=== PATIENT | female | born 1945 | race Caucasian/White ===

== ENCOUNTER 2016-07-20 16:17 | Emergency (ER) | payer BC, OTHER ==
[~2016-07-20] VITALS: Ht 162.6 cm; Wt 56.5 kg
[~2016-07-20 16:17] MED LIST: CIPR-255 PO; LACO100T PO; LACO200T PO; LEVE1TAB57 PO; LORA0.5T12 PO; VALA500T39 PO
[2016-07-20 16:25] VITALS: TEMP 36.9; Ht 162.6 cm; Wt 56.5 kg
[2016-07-20] MEDS ORDERED: HYDROCODONE/ACETAMOPHEN 5/325MG TAB PO STA (16:35)
[2016-07-20] MEDS ORDERED: TOPI50TA16 PO (16:40)
[2016-07-20] MEDS ORDERED: RIFA300C34 PO (16:40)
[2016-07-20] MEDS ORDERED: ERYCHP PO (16:40)
[2016-07-20] MEDS ORDERED: CLAR500T3 PO (16:40)
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
[2016-07-20] MEDS ORDERED: HYDR-5688 PO (18:04)
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
[2016-07-20 18:19] VITALS: BP 140/66; PULSE 74; O2SAT 99
== END 2016-07-20 18:20 | disposition home or self-care (01) ==
LOC: C.EDB 16:19 → C.EDD 18:20
DX: S20.212A Contusion of left front wall of thorax, initial encounter (principal); M54.6 Pain in thoracic spine; V43.62XA Car passenger injured in collision with other type car in traffic accident, initial encounter; M81.0 Age-related osteoporosis without current pathological fracture; I51.9 Heart disease, unspecified; G40.909 Epilepsy, unspecified, not intractable, without status epilepticus; Z79.899 Other long term (current) drug therapy

== ENCOUNTER 2021-09-20 12:27 | Inpatient (IN) ==
--- NOTE | 2021-09-20 13:01 | Emergency Department Note ---
History of Present Illness General Chief complaint: Fall Stated complaint: FALL, LOWER BACK PAIN Time Seen by Provider: 09/20/21 12:31 History of Present Illness Maximum Pain Intensity: 7 This 76-year-old female presents today by ambulance, for evaluation of multiple falls at home. Patient has a complex medical history. She has a history of meningitis back in the 80s. She is being worked up for Parkinson's disease. 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 She denies having any seizures for quite some time. She does see a neurologist for this. She has developed tremors over the last 6 to 8 months and has developed a shuffling type gait. She states she falls frequently. This morning she fell once while trying to get into the tub. She then had a secondary subsequent fall. She did strike the back of her head on the first fall, and struck her back on the second fall. She now complains of posterior headache as well as left-sided back and rib pain. She denies any loss of consciousness with either of her falls. Denies any neck pain, chest pain or shortness of breath. No numbness or tingling. No nausea or vomiting. No change in vision, speech, or hearing. She denies any loss of strength. Her daughter accompanies her today and contributes significantly to her history. No other treatment. Her biggest current complaint is left-sided rib pain. She has left hip discomfort at baseline. This is not new. No other complaints. Home Medications Medication Instructions Recorded Confirmed Type lacosamide 200 mg tablet (Vimpat) 200 mg PO BID #0 11/29/12 09/20/21 History levetiracetam 500 mg tablet 1,000 mg PO BID #0 tab 11/29/12 09/20/21 History valacyclovir 500 mg tablet 500 mg PO DAILY #0 tab 11/29/12 09/20/21 History topiramate 50 mg tablet 50 mg PO HS #0 tab 07/20/16 09/20/21 History acetaminophen 500 mg tablet 500 mg PO Q6H PRN 09/20/21 09/20/21 History donepezil 5 mg tablet 5 mg PO QAM 09/20/21 09/20/21 History hydroxyzine pamoate 25 mg capsule 25 mg PO BID PRN 09/20/21 09/20/21 History paroxetine HCl 20 mg tablet 20 mg PO DAILY 09/20/21 09/20/21 History Allergies Allergy/AdvReac Type Severity Reaction Status Date / Time iodine Allergy Mild HIVES Verified 09/20/21 13:32 morphine Allergy Unknown Verified 09/20/21 13:32 simvastatin Allergy Unknown Verified 09/20/21 13:32 prednisone AdvReac Mild GI UPSET Verified 09/20/21 13:32 CONTRASTMEDIA Allergy Mild HIVES Uncoded 09/20/21 13:32 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 [employer] Family History Other No pertinent family history Social History Smoking Status: Never smoker Second Hand Exposure: No; Do You Dip or Chew Tobacco: No; Tobacco Cessation Education Requested by Patient: No Hx Alcohol Use: Yes Alcohol type: hard liquor Alcohol Intake Frequency: Monthly or Less Hx Substance Use: No Preferred Language: Turkmen Communication Ability: Effective Hearing Ability: Normal Raw Juice Weigher Required: No Beliefs That Will Affect Care: None marital status: Current Living Situation: Alone current occupational status: retired Other Information That Helps Us Care for You: No Feels Safe at Home: Yes Safety Concerns: Feels Safe At This Time Assistive Devices: Walker Review of Systems A total of 10 systems reviewed and were otherwise negative Physical Exam Vital Signs Vital Signs - 24 hr 09/20/21 12:44 09/20/21 12:45 09/20/21 12:52 Temperature 36.8 C Temperature Source Oral Pulse Rate 75 78 Pulse Rate [Right Finger] Pulse Rate from SpO2 Sensor 75 Pulse Rhythm Regular Pulse Rhythm [Right Finger] Pulse Strength [Right Finger] Respiratory Rate 24 18 Respiratory Effort / Characteristics Non-Labored Respiratory Depth Normal Respiratory Pattern Regular Blood Pressure 173/72 H Blood Pressure Mean 105 Blood Pressure Position Sitting Pulse Oximetry 98 97 Oxygen Delivery Method Room Air Room Air Sepsis Recent Fever Within 48 Hours No Sepsis New/Unexplained Change in Mental Status No Sepsis Action Taken by Nursing No Action Required 09/20/21 13:00 09/20/21 13:08 09/20/21 13:30 Temperature Temperature Source Pulse Rate 71 69 Pulse Rate [Right Finger] Pulse Rate from SpO2 Sensor 72 69 Pulse Rhythm Pulse Rhythm [Right Finger] Pulse Strength [Right Finger] Respiratory Rate 23 19 Respiratory Effort / Characteristics Respiratory Depth Respiratory Pattern Blood Pressure 173/73 H Blood Pressure Mean 106 Blood Pressure Position Pulse Oximetry 98 98 99 Oxygen Delivery Method Room Air Sepsis Recent Fever Within 48 Hours Sepsis New/Unexplained Change in Mental Status Sepsis Action Taken by Nursing 09/20/21 15:00 Temperature Temperature Source Pulse Rate Pulse Rate [Right Finger] 70 Pulse Rate from SpO2 Sensor Pulse Rhythm Pulse Rhythm [Right Finger] Regular Pulse Strength [Right Finger] Normal Respiratory Rate 18 Respiratory Effort / Characteristics Non-Labored Spontaneous Respiratory Depth Normal Respiratory Pattern Blood Pressure Blood Pressure Mean Blood Pressure Position Pulse Oximetry 99 Oxygen Delivery Method Room Air Sepsis Recent Fever Within 48 Hours Sepsis New/Unexplained Change in Mental Status Sepsis Action Taken by Nursing General: Well-developed, well-nourished, elderly female, in no acute distress. Obvious discomfort. Laying on the bed. Alert and oriented. Conversive. Skin: Warm dry with good turgor. No rashes or lesions. No ecchymosis or er ythema. No edema. No bruising on her scalp or back. HEENT: Normocephalic. Eyes PERRLA, EOMI. No conjunctiva or scleral injection. Ears TMs intact bilaterally with good light reflexes. No erythema or bulging. No hemotympanum. Canals are patent. Nares patent bilaterally without turbinate enlargement. No significant drainage. No epistaxis. Heart: Heart RRR. Soft systolic murmur noted. No gallops or rubs. Peripheral pulses are 2+. Lungs: Lungs are clear to auscultation. No crackles rhonchi or wheezing. Good air movement. The patient is able to take a deep breath. Abdomen: Abdomen was inspected, auscultated, and palpated. Bowel sounds present x 4. Soft, mild tenderness to palpation right side. Patient states this is baseline and has been present for a few months. No hepato-splenomegaly. No masses noted. No rebound. Musculoskeletal: Gross motor function of the upper and lower extremities is intact and unremarkable. She is able to perform a straight leg raise. No pain with logrolling of the hips. She has tenderness over the left posterior ribs 6 through 12. No pain with palpation over her cervical spine, thoracic spine, or lumbar spine. Patient has a significant shuffling gait when ambulating. Neurologic: Gross sensation is intact across the upper and lower extremities by soft touch. Peripheral pulses are 2+. She has significant tremoring of the upper extremities. This is both at rest and with intentional movement. Course Administered Medications Acetaminophen (Acetaminophen 500 Mg Tab) 1,000 mg PO TID ROSALINDA Stop: 10/20/21 20:59 Last Admin: 09/21/21 20:15 Dose: 1,000 mg Documented by: [id number] Admin: 09/21/21 14:40 Dose: Not Given Documented by: [id number] Admin: 09/21/21 08:51 Dose: 1,000 mg Documented by: [id number] Admin: 09/20/21 20:16 Dose: 1,000 mg Documented by: [id number] Diclofenac Sodium (Diclofenac Sod 1% Gel 100 Gm Tube) 4 gm EXT QID PRN PRN Reason: Pain Stop: 10/21/21 20:59 Last Admin: 09/21/21 21:57 Dose: 4 gm Documented by: [id number] Donepezil HCl (Donepezil Hcl 5 Mg Tab) 5 mg PO QAM ROSALINDA Stop: 10/21/21 08:59 Last Admin: 09/21/21 08:51 Dose: 5 mg Documented by: [id number] Ketorolac Tromethamine (Ketorolac Tromethamine 15 Mg/Ml Vial) 15 mg IV Q8H PRN PRN Reason: Pain Stop: 09/25/21 17:43 Last Admin: 09/21/21 23:27 Dose: 15 mg Documented by: [id number] Admin: 09/21/21 16:16 Dose: 15 mg Documented by: [id number] Admin: 09/21/21 07:31 Dose: 15 mg Documented by: [id number] Admin: 09/20/21 22:30 Dose: 15 mg Documented by: [id number] Lacosamide (Lacosamide 50 Mg Tablet) 200 mg PO BID ROSALINDA Stop: 10/20/21 20:59 Last Admin: 09/21/21 21:52 Dose: 200 mg Documented by: [id number] Admin: 09/21/21 10:02 Dose: 200 mg Documented by: [id number] Admin: 09/20/21 20:21 Dose: 200 mg Documented by: [id number] Levetiracetam (Levetiracetam 500 Mg Tab) 1,000 mg PO BID ROSALINDA Stop: 10/20/21 20:59 Last Admin: 09/21/21 20:16 Dose: 1,000 mg Documented by: [id number] Admin: 09/21/21 08:51 Dose: 1,000 mg Documented by: [id number] Admin: 09/20/21 20:18 Dose: 1,000 mg Documented by: [id number] Lidocaine (Lidocaine 5% 1 Patch) 1 patch TD QAM ROSALINDA Stop: 10/20/21 18:29 Last Admin: 09/21/21 08:50 Dose: 1 patch Documented by: [id number] Admin: 09/20/21 20:38 Dose: Not Given Documented by: [id number] Miscellaneous (Remove Lidoderm Patch) 1 ea N/A DAILY@2100 ROSALINDA Stop: 10/20/21 06:59 Last Admin: 09/21/21 20:16 Dose: 1 ea Documented by: [id number] Admin: 09/20/21 20:40 Dose: Not Given Documented by: [id number] Admin: 09/20/21 20:20 Dose: Not Given Documented by: [id number] Paroxetine HCl (Paroxetine Hcl 20 Mg Tab) 20 mg PO DAILY ROSALINDA Stop: 10/21/21 08:59 Last Admin: 09/21/21 08:50 Dose: 20 mg Documented by: [id number] Topiramate (Topiramate 50 Mg Tab) 50 mg PO HS [facility] Stop: 10/20/21 20:59 Last Admin: 09/21/21 20:15 Dose: 50 mg Documented by: [id number] Admin: 09/20/21 20:18 Dose: 50 mg Documented by: [id number] Valacyclovir HCl (Valacyclovir Hcl 500 Mg Tablet) 500 mg PO DAILY ROSALINDA Stop: 10/21/21 08:59 Last Admin: 09/21/21 08:50 Dose: 500 mg Documented by: [id number] Discontinued Medications Acetaminophen (Acetaminophen 325 Mg Tab) 650 mg PO NOW STA Stop: 09/20/21 15:21 Last Admin: 09/20/21 15:50 Dose: 650 mg Documented by: [id number] Gadobutrol (Gadobutrol 65ml Vial) 6 ml IV ONCE ONE Stop: 09/21/21 13:44 Last Admin: 09/21/21 13:44 Dose: 6 ml Documented by: [id number] Medical Decision Making Differential Diagnosis Intracranial injury, cervical spine fracture, cranial fracture, rib fracture, spinal injury, consents disease, electrolyte abnormality, contusion, seizure Medical Records Attestation: I reviewed the patient's medical records. Home Medications Current Medication List: was personally reviewed by me Laboratory Data Covid, chemistry panel, troponin, and CBC were obtained. CBC is unremarkable. Chemistry panel is also unremarkable. Troponin is normal. Covid test is negative. Result diagrams: 09/20/21 12:40 09/21/21 06:29 Lab Results 09/20/21 09/20/21 09/20/21 Range/Units 12:40 12:40 15:15 WBC 8.62 (4.8-10.8) K/uL RBC 4.18 L (4.2-5.4) M/uL Hgb 13.9 (12.0-16.0) g/dL Hct 41.3 (37-47) % MCV 98.8 (80-100) fL MCH 33.3 (25-34) pg MCHC 33.7 (32-36) g/dL RDW Std Deviation 46.2 (36.4-46.3) fL RDW Coeff of Angel 12.8 (11.5-14.5) % Plt Count 242 (130-400) K/uL MPV 10.3 (7.4-10.4) fL Immature Gran % (Auto) 0.2 % Neut % (Auto) 83.3 % Lymph % (Auto) 9.5 % Pleasants % (Auto) 6.6 % Eos % (Auto) 0.2 % Baso % (Auto) 0.2 % Neut # (Auto) 7.17 H (1.4-6.5) K/uL Lymph # (Auto) 0.82 L (1.2-3.4) K/uL Pleasants # (Auto) 0.57 (0.11-0.59) K/uL Eos # (Auto) 0.02 (0-0.5) K/uL Baso # (Auto) 0.02 (0-0.2) K/uL Immature Gran # (Auto) 0.02 (0.00-0.02) K/uL Sodium 139 (136-145) mmol/L Potassium 3.5 (3.5-5.1) mmol/L Chloride 108 H (98-107) mmol/L Carbon Dioxide 23 (21-32) mmol/L Anion Gap 8 (3-11) BUN 19 (6-23) mg/dl Creatinine 0.82 (0.6-1.2) mg/dl Est Cr Clr Drug Dosing 52.0 ml/min Est GFR ( Amer) 81.7 ml/min Est GFR (Non-Af Amer) 70.5 ml/min BUN/Creatinine Ratio 23.2 H (10-20) Glucose 116 H (70-99(Fasting)) mg/dl Calcium 9.0 (8.5-10.1) mg/dl Magnesium 1.9 (1.7-2.4) mg/dl Total Bilirubin 0.4 (0.2-1.0) mg/dl AST 16 (13-39) U/L ALT 10 (7-52) U/L Alkaline Phosphatase 104 (34-104) U/L Troponin I < 0.03 (0-0.04) ng/ml Total Protein 7.2 (6.0-8.3) gm/dl Albumin 4.4 (3.4-5.0) gm/dl Globulin 2.8 (2.5-4.0) gm/dl Albumin/Globulin Ratio 1.6 (0.9-2) SARS-CoV-2, RNA, NAAT NEGATIVE (NEGATIVE) Imaging Data My Impression: CT scan imaging of the head and neck was obtained. There is no evidence of fracture subluxation of the cervical spine. No hemorrhage, mass-effect, or fracture of the brain or skull. Rib films showed no acute cardiopulmonary abnormality. She does have acute sixth and seventh rib fractures on the left. No pneumothorax. Lumbar spine films also obtained today showed no evidence of fracture or malalignment. Osteophytes and arthritic changes are noted. All films were reviewed by me and read by radiology. Radiologist's Impression: Cervical Spine CT 09/20/21 13:01 CT SCAN OF THE CERVICAL SPINE CLINICAL HISTORY: Fall. Neck pain. COMPARISON STUDY: No priors. TECHNIQUE: CT scan of the cervical spine is performed from the skull base to the upper thoracic spine. Images are reviewed in the axial, sagittal, and coronal planes. IV contrast was not administered for this examination. A dose lowering technique was utilized adhering to the principles of ALARA. FINDINGS: Skeletal structures: The skeletal structures are osteopenic. There is no evidence of fracture or subluxation involving the cervical spine. Vertebral body height and alignment are maintained. There is straightening of the cervical lordosis with mild reversal centered at C4-C5. Anterior osteophytes are seen throughout. The odontoid process and lateral masses are intact. The atlantoaxial articulation is preserved noting productive degenerative change. The spinous processes appear intact. There is multilevel facet arthropathy. Intervertebral discs: There is moderate disc space narrowing at C5-C6 and C6-C7. Milder disc space narrowing is seen at the remaining cervical levels. Central canal: Posterior disc osteophyte complexes at C4-C5, C5-C6, and C6-C7 may contribute to mild acquired compromise of the central canal. Soft tissues: The prevertebral and paraspinous soft tissues are within normal limits. There is atherosclerotic calcification of the carotid bulbs. Calvarium: The visualized calvarium at the skull base appears intact. Brain parenchyma: Partially visualized brain parenchyma at the skull base is within normal limits. Sinuses and mastoids: The visualized paranasal sinuses are clear. The mastoid air cells are well pneumatized. Lung apices: Clear as visualized. IMPRESSION: 1. There is no evidence of fracture or subluxation involving the cervical spine. 2. Osteopenia and spondylotic change as above. ACT 112: Negative or not required by law. Electronically signed by: Erasmo Healy M.D. 09/20/2021 1:26 PM Lumbar Spine X-Ray 09/20/21 13:01 LUMBAR SPINE 5 VIEWS CLINICAL HISTORY: Fall with low back pain. FINDINGS: 5 views of the lumbar spine are correlated with abdominal CT dated 05/24/2008. The skeletal structures are osteopenic. There is no radiographic evidence of acute fracture or malalignment. Vertebral body height and alignment are maintained throughout the lumbar spine. The transverse and spinous processes appear intact. There is no radiographic evidence of spondylolysis. Anterior and lateral marginal osteophytes are seen throughout. There is mild to moderate disc space narrowing at L5-S1. Only mild disc space narrowing is seen at the remaining lumbar levels. Facet arthropathy is noted in the lower lumbar region. The bony pelvis is intact as visualized. Mild degenerative sclerosis is noted in the sacroiliac joints. There is no bowel obstruction. Atherosclerotic calcification is seen throughout the abdominal aorta. IMPRESSION: 1. There is no radiographic evidence of acute fracture or malalignment involving the lumbar spine. 2. Osteopenia and spondylotic change as above. Dictated: 09/20/2021 3:19 PM Transcribed: 09/20/2021 3:30 PM Lisa [id number] Electronically signed by: Erasmo Healy M.D. 09/20/2021 3:35 PM Ribs w/Chest X-Ray 09/20/21 13:01 AP CHEST WITH LEFT-SIDED RIB SERIES CLINICAL HISTORY: Fall. Left-sided chest wall pain. FINDINGS: An AP upright chest radiograph with 4 additional views from a left- sided rib series is compared to study dated 07/20/2016 and correlated with chest CT dated 05/24/2008. The heart is top normal for projection noting atherosclerot ic calcification of the thoracic aorta. Chronic interstitial thickening and mild elevation of the right hemidiaphragm is similar to previous. There is mild bibasilar scarring/atelectasis. The lungs and pleural spaces are otherwise clear. No pneumothorax is seen. The skeletal structures are osteopenic. There are acute appearing left anterolateral 6th and 7th rib fractures seen on the rib series. The remainder of the bony thorax is grossly intact. Degenerative change and mild scoliosis is noted in the thoracic spine. IMPRESSION: 1. No acute cardiopulmonary abnormality. 2. There are acute appearing left anterolateral 6th and 7th rib fractures seen on the rib series. Correlate for point tenderness. ACT 112: Negative or not required by law. Electronically signed by: Erasmo Healy M.D. 09/20/2021 2:[address] 09/20/21 13:02 CT SCAN OF THE BRAIN WITHOUT IV CONTRAST CLINICAL HISTORY: Fall. Posterior head injury. COMPARISON STUDY: No priors. TECHNIQUE: Unenhanced axial CT scan of the brain is performed from the vertex to the skull base. A dose lowering technique was utilized adhering to the principles of ALARA. CT DOSE: 854.56 mGy.cm FINDINGS: Brain parenchyma: There are age-related involutional changes noting minimal subcortical and periventricular microangiopathic change. There is no hemorrhage, mass effect, or evidence of acute territorial ischemia by CT criteria. Yusuf-w meri matter differentiation is preserved. No extra-axial fluid collection is seen. Ventricles, sulci, cisterns: Prominent secondary to involutional change. Intracranial vasculature: There is atherosclerotic calcification of the cavernous carotid arteries. Calvarium: The skeletal structures are osteopenic. There is no depressed calvarial fracture. Sinuses and mastoids: The visualized paranasal sinuses are clear. The mastoid air cells are well pneumatized. Orbits: The bony orbits are grossly intact. IMPRESSION: There is no hemorrhage, mass effect, or evidence of acute territorial ischemia by CT criteria. ACT 112: Negative or not required by law. Electronically signed by: Erasmo Healy M.D. 09/20/2021 1:22 PM ECG Data Additional Comments: EKG obtained today was reviewed with Dr. De Oliveira. It shows a normal sinus rhythm with a rate of 73. There is a prolonged QT. She has T wave inversions in the anterior leads compared to her EKG of May 2008. ST is now depressed in the anterior leads as well. No acute ST elevation. Blood Pressure Blood Pressure Findings: Elevated blood pressure Blood Pressure Disposition: elevated BP felt to be situational Additional Comments: Likely related to pain from fracture. MDM Narrative Patient was evaluated in room C2. Conservative care measures were discussed. IV was established. Labs were obtained. They are unremarkable. EKG was obtained and was also unremarkable. She was placed on a cafeteria monitor throughout her ED stay. Rate remained regular in the mid 70s to low 70s, and no acute rhythm changes were noted. Radiographic imaging confirmed left-sided rib fractures. No intracranial injury or spinal injury was noted. Nursing staff did ambulate the patient to the bathroom during her stay. She was found to have significant ambulation impairment, and was very unsteady on her feet. She nearly fell several times while going to and from the bathroom. As such, p marquita is not safe for discharge to home. We did discuss therapy to assist with balance, coordination, and strength. Patient states she did have home health previously assigned, but did not trust them and discharged them on her own accord. In discussion with her daughter, and through shared decision making with the patient, admission with placement at a [facility] facility or rehab facility on was agreed upon. Hospitalist service was consulted. Please see their dictation for final management. Patient remained stable while in the ED. she did complain of increasing left-sided rib pain during her stay. She was given Tylenol 650 mg orally. Admission Covid swab was negative. Patient was seen in conjunction with Dr. De Oliveira, who also evaluated the patient and concurred with today's diagnosis and treatment plan. Impression & Plan Frequent falls, Left rib fracture, Unsteady gait Admission to hospitalist service. Discharge Plan Visit Data Chief Complaint: Fall Stated Complaint: FALL, LOWER BACK PAIN ED Provider: Pedro De Oliveira ED Midlevel Provider: Salvador Pedersen Discharge Problem: Frequent falls, Left rib fracture, Unsteady gait Patient Disposition: Admitted As Inpatient Discharge Instructions Interventions: ED Discharge Assessment Last Done: 09/20/21 17:04
[2021-09-20 13:11] LABS: Basophils # (auto) 0.02 K/uL (0-0.2); Basophils % (auto) 0.2 %; Eosinophils # (auto) 0.02 K/uL (0-0.5); Eosinophils % (auto) 0.2 %; Hematocrit (blood only) 41.3 % (37-47); Hemoglobin 13.9 g/dL (12.0-16.0); Immature Granulocytes # (auto) 0.02 K/uL (0.00-0.02); Immature Granulocytes % (auto) 0.2 %; Lymphocytes # (auto) 0.82 K/uL (1.2-3.4); Lymphocytes % (auto) 9.5 %; Mean Corpuscular Hemoglobin 33.3 pg (25-34); Mean Corpuscular Hgb Conc 33.7 g/dL (32-36); Mean Corpuscular Volume 98.8 fL (80-100); Mean Platelet Volume 10.3 fL (7.4-10.4); Monocytes # (auto) 0.57 K/uL (0.11-0.59); Monocytes % (auto) 6.6 %; Neutrophils # (auto) 7.17 K/uL (1.4-6.5); Neutrophils % (auto) 83.3 %; Platelet Count 242 K/uL (130-400); RDW Coefficient of Variation 12.8 % (11.5-14.5); RDW Standard Deviation 46.2 fL (36.4-46.3); Red Blood Count 4.18 M/uL (4.2-5.4); White Blood Count 8.62 K/uL (4.8-10.8)
[2021-09-20 13:21] LABS: Alanine Aminotransferase 10 U/L (7-52); Albumin Globulin Ratio 1.6 (0.9-2); Albumin Level 4.4 gm/dl (3.4-5.0); Alkaline Phosphatase 104 U/L (34-104); Anion Gap 8 (3-11); Aspartate Aminotransferase 16 U/L (13-39); BUN Creatinine Ratio 23.2 (10-20); Bilirubin,Total 0.4 mg/dl (0.2-1.0); Blood Urea Nitrogen 19 mg/dl (6-23); Carbon Dioxide 23 mmol/L (21-32); Chloride 108 mmol/L (98-107); Est GFR (African American) 81.7 ml/min; Est GFR (Non-African American) 70.5 ml/min; Globulin 2.8 gm/dl (2.5-4.0); Glucose 116 mg/dl (70-99(Fasting)); Magnesium 1.9 mg/dl (1.7-2.4); Potassium 3.5 mmol/L (3.5-5.1); Sodium 139 mmol/L (136-145); Total Protein 7.2 gm/dl (6.0-8.3)
[2021-09-20 13:23] LABS: Troponin I < 0.03 ng/ml (0-0.04)
--- NOTE | 2021-09-20 13:25 | CT Scan Report ---
CT SCAN OF THE BRAIN WITHOUT IV CONTRAST CLINICAL HISTORY: Fall. Posterior head injury. COMPARISON STUDY: No priors. TECHNIQUE: Unenhanced axial CT scan of the brain is performed from the vertex to the skull base. A do se lowering technique was utilized adhering to the principles of ALARA. CT DOSE: 854.56 mGy.cm FINDINGS: Brain parenchyma: There are age-related involutional changes noting minimal subcortical and perivent ricular microangiopathic change. There is no hemorrhage, mass effect, or evidence of acute territoria l ischemia by CT criteria. Yusuf-white matter differentiation is preserved. No extra-axial fluid colle ction is seen. Ventricles, sulci, cisterns: Prominent secondary to involutional change. Intracranial vasculature: There is atherosclerotic calcification of the cavernous carotid arteries. Calvarium: The skeletal structures are osteopenic. There is no depressed calvarial fracture. Sinuses and mastoids: The visualized paranasal sinuses are clear. The mastoid air cells are well pneu matized. Orbits: The bony orbits are grossly intact. IMPRESSION: There is no hemorrhage, mass effect, or evidence of acute territorial ischemia by CT mony quinones. ACT 112: Negative or not required by law. Electronically signed by: Erasmo Healy M.D. 09/20/2021 1:22 PM
--- NOTE | 2021-09-20 13:29 | CT Scan Report ---
CT SCAN OF THE CERVICAL SPINE CLINICAL HISTORY: Fall. Neck pain. COMPARISON STUDY: No priors. TECHNIQUE: CT scan of the cervical spine is performed from the skull base to the upper thoracic spine . Images are reviewed in the axial, sagittal, and coronal planes. IV contrast was not administered fo r this examination. A dose lowering technique was utilized adhering to the principles of ALARA. FINDINGS: Skeletal structures: The skeletal structures are osteopenic. There is no evidence of fracture or subl uxation involving the cervical spine. Vertebral body height and alignment are maintained. There is st raightening of the cervical lordosis with mild reversal centered at C4-C5. Anterior osteophytes are s een throughout. The odontoid process and lateral masses are intact. The atlantoaxial articulation is preserved noting productive degenerative change. The spinous processes appear intact. There is multil evel facet arthropathy. Intervertebral discs: There is moderate disc space narrowing at C5-C6 and C6-C7. Milder disc space na rrowing is seen at the remaining cervical levels. Central canal: Posterior disc osteophyte complexes at C4-C5, C5-C6, and C6-C7 may contribute to mild acquired compromise of the central canal. Soft tissues: The prevertebral and paraspinous soft tissues are within normal limits. There is athero sclerotic calcification of the carotid bulbs. Calvarium: The visualized calvarium at the skull base appears intact. Brain parenchyma: Partially visualized brain parenchyma at the skull base is within normal limits. Sinuses and mastoids: The visualized paranasal sinuses are clear. The mastoid air cells are well pneu matized. Lung apices: Clear as visualized. IMPRESSION: 1. There is no evidence of fracture or subluxation involving the cervical spine. 2. Osteopenia and spondylotic change as above. ACT 112: Negative or not required by law. Electronically signed by: Erasmo Healy M.D. 09/20/2021 1:26 PM
--- NOTE | 2021-09-20 14:36 | XRay Report ---
AP CHEST WITH LEFT-SIDED RIB SERIES CLINICAL HISTORY: Fall. Left-sided chest wall pain. FINDINGS: An AP upright chest radiograph with 4 additional views from a left-sided rib series is comp ared to study dated 07/20/2016 and correlated with chest CT dated 05/24/2008. The heart is top normal for projection noting atherosclerotic calcification of the thoracic aorta. Chronic interstitial thick ening and mild elevation of the right hemidiaphragm is similar to previous. There is mild bibasilar s carring/atelectasis. The lungs and pleural spaces are otherwise clear. No pneumothorax is seen. The s keletal structures are osteopenic. There are acute appearing left anterolateral 6th and 7th rib fract ures seen on the rib series. The remainder of the bony thorax is grossly intact. Degenerative change and mild scoliosis is noted in the thoracic spine. IMPRESSION: 1. No acute cardiopulmonary abnormality. 2. There are acute appearing left anterolateral 6th and 7th rib fractures seen on the rib series. Cor relate for point tenderness. ACT 112: Negative or not required by law. Electronically signed by: Erasmo Healy M.D. 09/20/2021 2:34 PM
--- NOTE | 2021-09-20 14:49 | Emergency Department Note ---
ED Visit Note The patient was seen and examined with Salvador Pedersen PA-C. I agree with the history, physical and findings. Please see the note for disposition and details. CT imaging negative for acute process in the head or neck. Imaging of the chest and ribs reveals a left sixth and seventh rib fracture with no pneumothorax. Discussed patient's frequent falls and safety at home. Will discuss with internal medicine for further management. .
[2021-09-20] MEDS ORDERED: ACETAMINOPHEN 325 MG TAB PO STA (15:20)
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
--- NOTE | 2021-09-20 15:37 | XRay Report ---
LUMBAR SPINE 5 VIEWS CLINICAL HISTORY: Fall with low back pain. FINDINGS: 5 views of the lumbar spine are correlated with abdominal CT dated 05/24/2008. The skeletal structures are osteopenic. There is no radiographic evidence of acute fracture or malalignment. Vert ebral body height and alignment are maintained throughout the lumbar spine. The transverse and spinou s processes appear intact. There is no radiographic evidence of spondylolysis. Anterior and lateral m arginal osteophytes are seen throughout. There is mild to moderate disc space narrowing at L5-S1. Onl y mild disc space narrowing is seen at the remaining lumbar levels. Facet arthropathy is noted in the lower lumbar region. The bony pelvis is intact as visualized. Mild degenerative sclerosis is noted i n the sacroiliac joints. There is no bowel obstruction. Atherosclerotic calcification is seen through out the abdominal aorta. IMPRESSION: 1. There is no radiographic evidence of acute fracture or malalignment involving the lumbar spine. 2. Osteopenia and spondylotic change as above. Dictated: 09/20/2021 3:19 PM Transcribed: 09/20/2021 3:30 PM Lisa [id number] MARITO_[email or web address] Electronically signed by: Erasmo Healy M.D. 09/20/2021 3:35 PM
--- NOTE | 2021-09-20 16:08 | Electrocardiogram Report ---
Test Reason : Blood Pressure : / mmHG Vent. Rate : 073 BPM Atrial Rate : 073 BPM P-R Int : 194 ms QRS Dur : 090 ms QT Int : 444 ms P-R-T Axes : 058 038 068 degrees QTc Int : 489 ms Normal sinus rhythm possible old posterior FL Prolonged QT Abnormal ECG When compared with ECG of 27-MAY-2008 06:57, ST now depressed in Anterior leads T wave inversion now evident in Anterior leads Confirmed by Karthik Gong ([id number]) on 09/20/2021 4:08:10 PM Referred By: REFERRED SELF Confirmed By:Jason Gong
[2021-09-20] MEDS ORDERED: ONDANSETRON INJ 2 MG/ML 2 ML VIAL IV PRN (17:44)
[2021-09-20] MEDS ORDERED: ALUMINUM/MAGNESIUM SUSP 30 ML UDC PO PRN (18:30)
[2021-09-20] MEDS ORDERED: POLYETHYLENE (MIRALAX) 17 GM PACK PO PRN (18:32)
[2021-09-20] MEDS: ACETAMINOPHEN 500 MG TAB PO SCH (20:16)
[2021-09-20] MEDS: levETIRAcetam 500 MG TAB PO SCH (20:18)
[2021-09-20] MEDS: TOPIRAMATE 50 MG TAB PO SCH (20:18)
[2021-09-20] MEDS: LIDOCAINE 5% 1 PATCH TD SCH ×2 (20:19→20:38)
[2021-09-20] MEDS: LACOSAMIDE 50 MG TABLET PO SCH (20:21)
[2021-09-20] MEDS: KETOROLAC TROMETHAMINE 15 MG/ML VIAL IV PRN (22:30)
[2021-09-21 07:03] LABS: Calcium 8.9 mg/dl (8.5-10.1); Est GFR (African American) 81.7 ml/min; Est GFR (Non-African American) 70.5 ml/min; Potassium 3.5 mmol/L (3.5-5.1)
[2021-09-21] MEDS: KETOROLAC TROMETHAMINE 15 MG/ML VIAL IV PRN ×3 (07:31→23:27)
[2021-09-21] MEDS: valACYclovir HCL 500 MG TABLET PO SCH (08:50)
[2021-09-21] MEDS: LIDOCAINE 5% 1 PATCH TD SCH (08:50)
[2021-09-21] MEDS: PARoxetine HCL 20 MG TAB PO SCH (08:50)
[2021-09-21] MEDS: ACETAMINOPHEN 500 MG TAB PO SCH ×3 (08:51→20:15)
[2021-09-21] MEDS: DONEPEZIL HCL 5 MG TAB PO SCH (08:51)
[2021-09-21] MEDS: levETIRAcetam 500 MG TAB PO SCH ×2 (08:51→20:16)
--- NOTE | 2021-09-21 09:46 | Neurology Consultation ---
Date of Consultation September 21, 2021 Assessment & Plan (1) Seizure disorder: (2) Frequent falls: (3) Tremor: Reported history of seizure disorder diagnosed about 10 years ago, following with Dr. Mosley, a neurologist in [place]. Per history, patient may experience both generalized tonic-clonic seizures and partial complex seizures. Her seizures may be incompletely controlled as her last episode occurred 4 months ago, she is on 3 anticonvulsants. She recalls having abnormal EEG evalua tions in the past. We do not have access to any of her previous records. She does endorse associated anxiety as well as a history of frequent migrainous headache, following a diagnosis of meningitis about 20 years ago. This patient does have a mixed tremor with resting, postural and action components, right hand greater than left, there is an associated perioral tremor as well. She is not rigid or bradykinetic, however. Yet, she does endorse associated gait dysfunction, shuffling type gait which she thinks began at about the same time as her tremor. Patient may have either a symmetric benign essential tremor or possibly Parkinson's disease, but again, she is not rigid or bradykinetic. I was not able to observe her walking this morning although she reportedly has a shuffling magnetic type gait. Gait abnormalities would typically occur much later on in Parkinson's disease. Early onset gait dysfunction may suggest atypical parkinsonism or an alternative diagnosis such as multiple systems atrophy, progressive supranuclear palsy, or possibly cortical basal degeneration. She does take a low-dose of donepezil for memory loss although in speaking with the patient this morning, I suspect her degree of cognitive impairment is mild. Would recommend completion of gadolinium enhanced MRI of the brain and cervical spine to evaluate for subacute stroke, atrophy, and spinal myelopathy. Would recommend an EEG. Would check anticonvulsant drug levels. I may consider a trial of carbidopa levodopa for her tremor which does have a parkinsonian quality (resting, asymmetric, right greater than left). History of Present Illness Reason for Consultation: falls, seizure d/o, tremor Requesting Physician: Drew Ramirez MD Attending Physician: Eyal Espinoza MD History of Present Illness The patient is a 76-year-old female who follows with Dr. Mosley, a neurologist in [place], for seizure disorder, gait dysfunction, and tremor. She began experiencing seizures about 10 years ago and reports a history of both generalized tonic-clonic seizures as well as partial events. She often experiences a warning which he characterizes tremulousness and an associated feeling of confusion or disorientation. She admits that she is not always aware when she has had spells. She believes her last seizure occurred 4 months ago. She does complain of associated anxiety. She is currently prescribed Vimpat, Keppra, and Topamax. She reports that she developed difficulty with walking, shuffling/magnetic type gait, within the past year or so, she has been utilizing a walker. She also complains of an associated bilateral upper extremity tremor, right greater than left, resting postural and action component although most bothered by action component with difficulty using eating utensils. Also has a mild associated perioral tremor. There is some question as to whether or not she may have Parkinson's disease although she is not bradykinetic or rigid. She is not on Sinemet or other similar medication for Parkinson's disease at this time. She does take a low-dose of donepezil for mild memory loss. The patient presented to the emergency department yesterday for further assessment of multiple falls recently. She does have several relatively acute rib fractures. She did strike her head with 1 of these falls but no associated loss of consciousness or significant concussive symptoms reported at this time. Remote history of meningitis, after which patient developed chronic frequent migraines. Allergies Allergy/AdvReac Type Severity Reaction Status Date / Time iodine Allergy Mild HIVES Verified 09/20/21 13:32 morphine Allergy Unknown Verified 09/20/21 13:32 simvastatin Allergy Unknown Verified 09/20/21 13:32 prednisone AdvReac Mild GI UPSET Verified 09/20/21 13:32 CONTRASTMEDIA Allergy Mild HIVES Uncoded 09/20/21 13:32 Home Medications Medication Instructions Recorded Confirmed Type lacosamide 200 mg tablet (Vimpat) 200 mg PO BID #0 11/29/12 09/20/21 History levetiracetam 500 mg tablet 1,000 mg PO BID #0 tab 11/29/12 09/20/21 History valacyclovir 500 mg tablet 500 mg PO DAILY #0 tab 11/29/12 09/20/21 History topiramate 50 mg tablet 50 mg PO HS #0 tab 07/20/16 09/20/21 History acetaminophen 500 mg tablet 500 mg PO Q6H PRN 09/20/21 09/20/21 History donepezil 5 mg tablet 5 mg PO QAM 09/20/21 09/20/21 History hydroxyzine pamoate 25 mg capsule 25 mg PO BID PRN 09/20/21 09/20/21 History paroxetine HCl 20 mg tablet 20 mg PO DAILY 09/20/21 09/20/21 History Patient History Medical History Aortic valve insufficiency Hx of meningitis Seizure 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 Family History Other No pertinent family history Social History Smoking Status: Never smoker Second Hand Exposure: No; Do You Dip or Chew Tobacco: No; Tobacco Cessation Education Requested by Patient: No Hx Alcohol Use: Yes Alcohol type: hard liquor Alcohol Intake Frequency: Monthly or Less Hx Substance Use: No Preferred Language: Tamazight Communication Ability: Effective Hearing Ability: Normal Fish 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 Required: No Beliefs That Will Affect Care: None marital status: Current Living Situation: Alone current occupational status: retired Other Information That Helps Us Care for You: No Feels Safe at Home: Yes Safety Concerns: Feels Safe At This Time Assistive Devices: Denture - Upper, Denture - Lower, Glasses and Walker Review of Systems Constitutional: no fever and no chills Eyes: no blind spots and no diplopia Ear, Nose, Mouth, Throat: no ear pain and no hearing loss Respiratory: no cough and no dyspnea Cardiovascular: no chest pain and no palpitations Gastrointestinal: no constipation and no diarrhea/loose stools Genitourinary: no urinary urgency and no urinary incontinence Musculoskeletal: + muscle weakness; no muscle atrophy Integumentary: no rash and no lesions Neurologic: as per Subjective / HPI, + gait abnormality, + tremor(s) and + memory loss; no headache(s) Psychiatric: + depression and + anxiety; no hallucinations Hematologic / Lymphatic: no easy bruising and no lymphadenopathy Exam (Neuro) Constitutional: well developed and well nourished; no acute distress Eyes: normal visual villa by confrontation, PERRL, normal accommodation and EOM intact bilaterally; no fundoscopic abnormality, no nystagmus and no papilledema Cardiovascular: Vessels: normal carotid upstroke; no carotid bruit Neurologic: Oriented to:: Person, Place and Time Memory: Short Term Intact and Remote Intact Attention: Span Intact and Concentration Intact Language: Naming Objects and Repeating Phrases Speech Fluency: negative Dysarthria Speech Aphasia: negative Aphasia Fund of Knowledge: Current Events, Past History and Vocabulary Cranial Nerves: Normal II (Visual villa full to confrontation, visual acuity normal), III, IV, (Pupils equal round reactive to light and accommodation, eye movements normal), V (Facial sensation intact), VII (There is no facial droop or weakness), VIII (Hearing intact), IX, X (Palate elevates to midline), XI (Shoulder shrug intact) and XII (Tongue protrudes to midline) Motor Strength: Normal Lower Extremities and Normal Upper Extremities; negative Pronator Drift Motor Tone: Normal Lower Extremities and Normal Upper Extremities Muscle Bulk/Involuntary Movements: Rest Tremor (Arm) and Action Tremor; negative Muscle Atrophy or Pill Rolling Tremor Sensation: Light Touch Intact, Pain/Temperature Intact, Vibration Intact and Proprioception Intact Coordination: Normal and Limited Balance; negative Dysdiadochokinesia, Finger-Nose Abnormal or Heel-Haider Abnormal Deep Tendon Reflexes: Rt Triceps: 2+, Lt Triceps: 2+, Rt Biceps: 2+, Lt Biceps: 2+, Rt Brachioradialis: 2+, Lt Brachioradialis: 2+, Rt Patellar: 2+, Lt Patellar: 2+, Rt Ankle: 1+ and Lt Ankle: 1+ Special Tests: negative Babinski Present Details: Gait could not be tested in the context of patient's current neurological status. Results & Data ([facility]) Vital Signs (Past 12 Hours) Vital Signs Temp Pulse Pulse Resp BP Pulse Ox 09/21/21 07:44 36.7 C 59 L 18 126/75 97 09/21/21 03:27 36.7 C 57 L 17 136/73 96 09/20/21 23:00 37.0 C 62 16 158/84 H 96 09/20/21 22:24 69 Laboratory Results WBC 8.62, hemoglobin 13.9, hematocrit 41.3, MCV 98.8, platelet count 242, sodium 138, potassium 3.5, BUN 23, creatinine 0.82, glucose 88, calcium 8.9. Diagnostic Findings CT of the head negative for hemorrhage or acute process. No hydrocephalus. CT of the cervical spine negative for fracture or subluxation, there is osteopenia and spondylitic change. I reviewed the images as well as the radiologist interpretation of these tests. Electrocardiogram reveals a normal sinus rhythm, prolonged QT interval. Coding Level of Care Code 91396 Initial In Care Lvl 3 Diagnoses Seizure disorder G40.909 Frequent falls R29.6 Tremor R25.1
[2021-09-21] MEDS: LACOSAMIDE 50 MG TABLET PO SCH ×2 (10:02→21:52)
[2021-09-21] MEDS ORDERED: GADOBUTROL 65ML VIAL IV ONE (13:43)
--- NOTE | 2021-09-21 13:47 | Magnetic Resonance Report ---
MR OF THE CERVICAL SPINE WITHOUT IV CONTRAST CLINICAL HISTORY: weakness, falls TECHNIQUE: MRI of the cervical spine is performed utilizing various T1 and T2 sequences in the axial and sagittal planes. IV contrast was not administered for this examination. Comparison: None available at the time of this dictation. FINDINGS: Cervical spine: Vertebral body height and alignment are maintained throughout the cervical spine. The atlantodental articulation appears maintained. No destructive bony lesion is seen. Intervertebral discs: Degenerative changes are noted in the discs and vertebral bodies. Spinal cord: The cervical spinal cord is normal in morphology and signal intensity. C2-C3: Unremarkable. C3-C4: No canal stenosis is seen. There is facet arthropathy with mild left neuroforaminal stenosis. C4-C5: Small broad-based posterior disc bulge with mild canal stenosis. Bilateral facet arthropathy w ith moderate right and mild left neuroforaminal stenosis. C5-C6: Bilateral facet arthropathy with mild bilateral neural foraminal stenosis. C6-C7: Bilateral facet arthropathy is seen with mild bilateral neural foraminal stenosis. C7-T1: Unremarkable. Soft tissues: The paraspinous and prevertebral soft tissues are normal in appearance. Brain parenchyma: Partially imaged brain parenchyma at the skull base is within normal limits. IMPRESSION: Multilevel degenerative changes as above. There is up to mild canal stenosis and moderate right and mild left neuroforaminal stenosis. ACT 112: Negative or not required by law. Electronically signed by: Ascencion Tabares M.D. 09/21/2021 1:45 PM
--- NOTE | 2021-09-21 14:11 | Magnetic Resonance Report ---
MRI OF THE BRAIN COMBO CLINICAL HISTORY: Seizure. Headaches and dizziness. COMPARISON STUDY: CT of the brain dated 09/20/2021. TECHNIQUE: MRI of the brain was performed utilizing various T1 and T2-weighted sequences in the axial , sagittal, and coronal planes. Contrast-enhanced sequences were acquired following the administratio n of 6 cc of Gadavist. The examination was performed using the seizure protocol. FINDINGS: Brain parenchyma: There is age-related involutional change noting minimal microangiopathic disease. T here is no hemorrhage or mass effect. There is no restricted diffusion to suggest acute ischemia. No enhancing mass lesion is identified on the postcontrast images. Yusuf-white matter differentiation is preserved. The hippocampi are normal and symmetric. No extra-axial fluid collection is seen. The cere bellar tonsils are normal in configuration. Ventricles, sulci, and cisterns: Prominent secondary to involutional change. Pituitary and sella: Unremarkable. Intracranial vasculature: Normal flow voids are maintained at the skull base. Orbits: The bony orbits are grossly intact. Orbital contents are normal in appearance. Sinuses and mastoids: Clear. Calvarium: Unremarkable. Cervical cord: Partially visualized cervical spinal cord is normal in morphology and signal intensity . IMPRESSION: No acute intracranial abnormality. ACT 112: Negative or not required by law. Electronically signed by: Erasmo Healy M.D. 09/21/2021 2:09 PM
--- NOTE | 2021-09-21 17:25 | Hospitalist Progress Note ---
Date of Service September 21, 2021 Assessment & Plan (1) Frequent falls: Plan: Patient has been having frequent falls and initially the thought was she was developing a parkinsonian type disorder. Agree with admitting physician and recurrent falls appears to be due to a n eurological condition with significant benign essential tremor type Appreciate neurological review and pending seizure medication levels, brain/cervical spine MRI and EEG for further workup however tremor appears consistent with benign essential tremor - will defer starting any new medications at this time for this pending ongoing neurological workup Certainly medications such as paroxetine are generally avoided in this age group however since she has been on this for > 2 years and no withdrawal during that time I do not suspect this is the cause and do not wish to cause a withdrawal at the current time to complicate the picture. Paroxetine (as with any SSRI) can also make benign essential tremor worse. Telemetry - without arrhythmia although difficult to interpret most of the time with her tremor B12 and TSH levels with AM labs. (2) Benign essential tremor: Plan: Tremor very consistent with this diagnosis. Doubtful Parkinson's - agree with neurology review. Possible Keppra, Paroxetine, Vimpat making this worse - will defer anti-seizure medication changes to neurology Topamax can be used as treatment for essential tremor so this would be favored as anti-convulsant. Will defer additional medications pending neurological workup. (3) Rib fracture: Plan: For the patient's rib fracture will avoid opiates use scheduled Tylenol Lidoderm patch incentive spirometry breathing. (4) Seizure disorder: Plan: For the patient's seizure disorder she takes Vimpat 200 mg twice daily, Keppra 1000 twice daily, and Topamax 50 at bedtime these will be continued with pending neurology evaluation (5) Dementia: Plan: Donepezil continued at 5 mg a day (6) Depression: Plan: Paroxetine is continued to 20 mg a day Plan: VTE Prophylaxis - no SCDs due to falls risk, low risk for chemical prophylaxis Code - full, discussed on admission Disposition - stable to downgrade to med/tele Admission and Anticipated Discharge Date Admission Date: September 20, 2021 Subjective Here mainly for recurrent falls due to loss of balance. No significant change in symptoms since admission. Reports progressively getting worse slowly over the course of the last year, but now to a point she is unable to manage at home. She seems to always fall to one side. No lightheadedness, room spinning or dizziness. Unbalanced with her tremor. Review of Systems Review of Systems: All systems reviewed & are unremarkable except as noted in Subjective Physical Exam Constitutional: WD/WN, vitals as above ENMT: external ear and nose normal, oropharynx normal Neck: trachea midline, no thyromegaly Respiratory: normal respiratory effort, lungs clear to auscultation Cardiovascular: RRR, no murmur, no edema Gastrointestinal (Abdomen): normal bowel sounds, soft, nontender, no hepatosplenomegaly Skin: no rashes, warm and dry Neurologic: moves all extremities and awake; not confused Speech / Cognition: normal speech Motor/Sensory: + tremor (action > postural > resting) Coordination: normal haomnc-wv-aeob test no cogwheel rigidity Psychiatric: A+Ox3, euthymic affect Results & Data Results & Data ([facility]) Vital Signs (Past 12 Hours) Vital Signs Temp Pulse Resp BP Pulse Ox 09/21/21 15:26 37.2 C 64 20 151/79 H 97 09/21/21 11:24 36.5 C 60 17 158/76 H 99 09/21/21 07:44 36.7 C 59 L 18 126/75 97 PG Care Time/CCT Total # of Minutes Spent Total Time Spent with Patient: Total time spent is greater than 50% in coordination of care (as documented) at patient's floor/unit and/or counseling patient: Coding Level of Care Code 47676 Subseq Hosp Care Lvl 3 Diagnoses Frequent falls R29.6 Rib fracture S22.39XA Seizure disorder G40.909 Dementia F03.90 Depression F32.A Benign essential tremor G25.0
[2021-09-21] MEDS ORDERED: DICLOFENAC SOD 1% GEL 100 GM TUBE EXT PRN (20:06)
[2021-09-21] MEDS: TOPIRAMATE 50 MG TAB PO SCH (20:15)
[2021-09-22 08:19] LABS: Basophils # (auto) 0.03 K/uL (0-0.2); Basophils % (auto) 0.4 %; Eosinophils # (auto) 0.12 K/uL (0-0.5); Eosinophils % (auto) 1.8 %; Hematocrit (blood only) 39.7 % (37-47); Hemoglobin 13.8 g/dL (12.0-16.0); Immature Granulocytes # (auto) 0.01 K/uL (0.00-0.02); Immature Granulocytes % (auto) 0.1 %; Lymphocytes # (auto) 1.44 K/uL (1.2-3.4); Lymphocytes % (auto) 21.5 %; Mean Corpuscular Hemoglobin 34.1 pg (25-34); Mean Corpuscular Hgb Conc 34.8 g/dL (32-36); Mean Platelet Volume 10.4 fL (7.4-10.4); Monocytes # (auto) 0.76 K/uL (0.11-0.59); Monocytes % (auto) 11.3 %; Neutrophils # (auto) 4.35 K/uL (1.4-6.5); Neutrophils % (auto) 64.9 %; Platelet Count 245 K/uL (130-400); RDW Coefficient of Variation 12.9 % (11.5-14.5); RDW Standard Deviation 46.7 fL (36.4-46.3); Red Blood Count 4.05 M/uL (4.2-5.4); White Blood Count 6.71 K/uL (4.8-10.8)
[2021-09-22 08:48] LABS: BUN Creatinine Ratio 39.2 (10-20); Calcium 8.6 mg/dl (8.5-10.1); Creatinine Clr Calc Pharmacy 53.9 ml/min; Est GFR (African American) 85.5 ml/min; Est GFR (Non-African American) 73.7 ml/min; Potassium 3.8 mmol/L (3.5-5.1)
[2021-09-22] MEDS: ACETAMINOPHEN 500 MG TAB PO SCH ×3 (09:59→21:20)
[2021-09-22] MEDS: valACYclovir HCL 500 MG TABLET PO SCH (09:59)
[2021-09-22] MEDS: LIDOCAINE 5% 1 PATCH TD SCH (10:00)
[2021-09-22] MEDS: levETIRAcetam 500 MG TAB PO SCH ×2 (10:00→21:20)
[2021-09-22] MEDS: DONEPEZIL HCL 5 MG TAB PO SCH (10:00)
[2021-09-22] MEDS: PARoxetine HCL 20 MG TAB PO SCH (10:00)
--- NOTE | 2021-09-22 10:54 | Neurology Progress Note ---
Date of Service September 22, 2021 Assessment & Plan (1) Tremor: (2) Seizure disorder: (3) Parkinsonian features: Plan: This patient has a mixed asymmetric resting postural and action tremor, right greater than left, associated perioral/chin tremor. She believes her tremor began prior to her gait dysfunction, does display a magnetic shuffling type gait. I note that she is not rigid or bradykinetic, however. No imaging findings on MRI of the brain or cervical spine that would otherwise explain her tremor, gait dysfunction, or history of seizure disorder. Because she is not bradykinetic or rigid, it is difficult to diagnose classic idiopathic Parkinson's disease in this patient in spite of the fact that she has an asymmetric tremor with resting component and magnetic/shuffling type gait. She could be labeled as atypical parkinsonism. No evidence of normal pressure hydrocephalus or significant cerebrovascular disease burden on brain MRI. No evidence of cervical myelopathy on C-spine MRI. Patient's EEG should be completed later today, discussed with our technologist. Patient's seizures have been stable, however. I would recommend that she continue with Vimpat 200 mg twice daily and Keppra 1000 mg twice daily. She is prescribed topiramate 50 mg at bedtime primarily for migraine prevention. However, I think it would be reasonable to try increasing her dosage of topiramate to 50 mg twice daily as this medication may also be beneficial for t remor in general. Would consider a trial of Sinemet going forward, depending on her response to topiramate up titration. Patient may follow-up with Dr. Mosley, her neurologist in [place], or may fol low-up with myself or one of our APCs in our local neurology clinic in 2 to 3 weeks. Admission and Anticipated Discharge Date Admission Date: September 20, 2021 Subjective Follow-up for history of seizure disorder, gait dysfunction, tremor The patient does report feeling modestly improved compared with yesterday. She continues to exhibit a mild to moderate intermittent right upper extremity resting as well as postural and action tremor. Has a mild postural and action tremor for the left upper limb as well. She also has a mild perioral/chin tremor. She is not rigid or bradykinetic. Upon further discussion with the patient today, she does believe that her tremor probably began before her gait and postural difficulty. The symptoms have been present for several years and the possibility of parkinsonism has been considered in this patient. I did have the opportunity to watch her stand up and walk at bedside this morning. She required minimal assistance to arise from her bedside chair. She took very short shuffling type steps. Patient indicates that her walking pattern has been like this for the past few years. She denies significant headache at this time. She has not had any seizure-like episodes and several months. Review of Systems Eyes: no blind spots and no diplopia Neurologic: + tremor(s) and + memory loss; no headache(s) Results & Data ([facility]) Vital Signs (Past 12 Hours) Vital Signs Temp Pulse Resp BP Pulse Ox 09/22/21 07:51 36.4 C L 60 18 147/78 H 96 09/22/21 03:26 36.5 C 64 18 144/76 H 98 09/21/21 23:15 36.9 C 60 18 139/74 95 Laboratory Results WBC 6.71, hemoglobin 13.8, hematocrit 39.7, MCV 98.0, platelet count 245, sodium 140, potassium 3.8, BUN 31, creatinine 0.79, glucose 98, calcium 8.6, vitamin B12 133, TSH 1.532. Keppra and Vimpat levels are pending. MRI of the cervical spine completed yesterday revealed multilevel degenerative changes with up to mild central canal stenosis and moderate right and mild left neuroforaminal stenosis. MRI of the brain completed yesterday was negative for acute or subacute stroke. No abnormal postcontrast enhancement. No hydrocephalus. There is minimal subcortical microvascular ischemic change. No mesial temporal sclerosis. I reviewed the images as well as the radiologist's interpretation of these tests. Exam (Neuro) Neurologic: Oriented to:: Person, Place and Time Attention: Span Intact and Concentration Intact Speech Fluency: negative Dysarthria or Dysfluency Fund of Knowledge: Vocabulary Cranial Nerves: Normal II, III, IV, and VII Motor Strength: Normal Lower Extremities and Normal Upper Extremities Rigidity: None Muscle Bulk/Involuntary Movements: Rest Tremor (Arm) and Action Tremor Coordination: Limited Balance; negative Finger-Nose Abnormal Gait: Shuffling Coding Level of Care Code 21243 Subseq Hosp Care Lvl 2 Diagnoses Tremor R25.1 Seizure disorder G40.909 Parkinsonian features R25.9
[2021-09-22] MEDS: LACOSAMIDE 50 MG TABLET PO SCH ×2 (11:08→21:20)
[2021-09-22] MEDS: KETOROLAC TROMETHAMINE 15 MG/ML VIAL IV PRN ×2 (11:12→22:18)
--- NOTE | 2021-09-22 12:14 | Electroencephalogram ---
EEG Procedure Note Date of Service September 22, 2021 Start / End Times Start Time: 11:46 AM End Time: 12:06 PM Referring Physician Clark Sadler MD History Seizure disorder Home Medication List Medication Instructions Recorded Confirmed Type lacosamide 200 mg tablet (Vimpat) 200 mg PO BID #0 11/29/12 09/20/21 History levetiracetam 500 mg tablet 1,000 mg PO BID #0 tab 11/29/12 09/20/21 History valacyclovir 500 mg tablet 500 mg PO DAILY #0 tab 11/29/12 09/20/21 History topiramate 50 mg tablet 50 mg PO HS #0 tab 07/20/16 09/20/21 History acetaminophen 500 mg tablet 500 mg PO Q6H PRN 09/20/21 09/20/21 History donepezil 5 mg tablet 5 mg PO QAM 09/20/21 09/20/21 History hydroxyzine pamoate 25 mg capsule 25 mg PO BID PRN 09/20/21 09/20/21 History paroxetine HCl 20 mg tablet 20 mg PO DAILY 09/20/21 09/20/21 History Inpatient Medication List Acetaminophen (Acetaminophen 500 Mg Tab) 1,000 mg PO TID ROSALINDA Stop: 10/20/21 20:59 Last Admin: 09/22/21 09:59 Dose: 1,000 mg Documented by: [id number] Admin: 09/21/21 20:15 Dose: 1,000 mg Documented by: [id number] Admin: 09/21/21 14:40 Dose: Not Given Documented by: [id number] Admin: 09/21/21 08:51 Dose: 1,000 mg Documented by: [id number] Admin: 09/20/21 20:16 Dose: 1,000 mg Documented by: [id number] Diclofenac Sodium (Diclofenac Sod 1% Gel 100 Gm Tube) 4 gm EXT QID PRN PRN Reason: Pain Stop: 10/21/21 20:59 Last Admin: 09/21/21 21:57 Dose: 4 gm Documented by: [id number] Donepezil HCl (Donepezil Hcl 5 Mg Tab) 5 mg PO QAM ROSALINDA Stop: 10/21/21 08:59 Last Admin: 09/22/21 10:00 Dose: 5 mg Documented by: [id number] Admin: 09/21/21 08:51 Dose: 5 mg Documented by: [id number] Ketorolac Tromethamine (Ketorolac Tromethamine 15 Mg/Ml Vial) 15 mg IV Q8H PRN PRN Reason: Pain Stop: 09/25/21 17:43 Last Admin: 09/22/21 11:12 Dose: 15 mg Documented by: [id number] Admin: 09/21/21 23:27 Dose: 15 mg Documented by: [id number] Admin: 09/21/21 16:16 Dose: 15 mg Documented by: [id number] Admin: 09/21/21 07:31 Dose: 15 mg Documented by: [id number] Admin: 09/20/21 22:30 Dose: 15 mg Documented by: [id number] Lacosamide (Lacosamide 50 Mg Tablet) 200 mg PO BID [facility] Stop: 10/20/21 20:59 Last Admin: 09/22/21 11:08 Dose: 200 mg Documented by: [id number] Admin: 09/21/21 21:52 Dose: 200 mg Documented by: [id number] Admin: 09/21/21 10:02 Dose: 200 mg Documented by: [id number] Admin: 09/20/21 20:21 Dose: 200 mg Documented by: [id number] Levetiracetam (Levetiracetam 500 Mg Tab) 1,000 mg PO BID [facility] Stop: 10/20/21 20:59 Last Admin: 09/22/21 10:00 Dose: 1,000 mg Documented by: [id number] Admin: 09/21/21 20:16 Dose: 1,000 mg Documented by: [id number] Admin: 09/21/21 08:51 Dose: 1,000 mg Documented by: [id number] Admin: 09/20/21 20:18 Dose: 1,000 mg Documented by: [id number] Lidocaine (Lidocaine 5% 1 Patch) 1 patch TD QAM [facility] Stop: 10/20/21 18:29 Last Admin: 09/22/21 10:00 Dose: 1 patch Documented by: [id number] Admin: 09/21/21 08:50 Dose: 1 patch Documented by: [id number] Admin: 09/20/21 20:38 Dose: Not Given Documented by: [id number] Miscellaneous (Remove Lidoderm Patch) 1 ea N/A DAILY@2100 [facility] Stop: 10/20/21 06:59 Last Admin: 09/21/21 20:16 Dose: 1 ea Documented by: [id number] Admin: 09/20/21 20:40 Dose: Not Given Documented by: [id number] Admin: 09/20/21 20:20 Dose: Not Given Documented by: [id number] Paroxetine HCl (Paroxetine Hcl 20 Mg Tab) 20 mg PO DAILY ROSALINDA Stop: 10/21/21 08:59 Last Admin: 09/22/21 10:00 Dose: 20 mg Documented by: [id number] Admin: 09/21/21 08:50 Dose: 20 mg Documented by: [id number] Valacyclovir HCl (Valacyclovir Hcl 500 Mg Tablet) 500 mg PO DAILY ROSALINDA Stop: 10/21/21 08:59 Last Admin: 09/22/21 09:59 Dose: 500 mg Documented by: [id number] Admin: 09/21/21 08:50 Dose: 500 mg Documented by: [id number] Discontinued Medications Acetaminophen (Acetaminophen 325 Mg Tab) 650 mg PO NOW STA Stop: 09/20/21 15:21 Last Admin: 09/20/21 15:50 Dose: 650 mg Documented by: [id number] Gadobutrol (Gadobutrol 65ml Vial) 6 ml IV ONCE ONE Stop: 09/21/21 13:44 Last Admin: 09/21/21 13:44 Dose: 6 ml Documented by: [id number] Topiramate (Topiramate 50 Mg Tab) 50 mg PO HS ROSALINDA Stop: 10/20/21 20:59 Last Admin: 09/21/21 20:15 Dose: 50 mg Documented by: [id number] Admin: 09/20/21 20:18 Dose: 50 mg Documented by: [id number] Description This is a 21 electrode EEG with a single channel dedicated to limited EKG. The electrodes were placed in accordance with the International 10-20 system. There is a posterior dominant rhythm of 10 Hz which is symmetrically distributed and attenuates with eye opening. There is a normal anterior to posterior organization. Photic stimulation is unremarkable. Hyperventilation is not performed. There is a symmetric frontal beta rhythm. There is no focal or lateralized slowing. No epileptiform abnormalities. No changes suggestive of sleep. There is intermittent eye movement artifact. Interpretation Normal-appearing awake/drowsy EEG. A normal EEG does not completely exclude a diagnosis of epilepsy. [facility] EEG Procedure Codes Indication for Procedure (1) Seizure disorder: Neurology Neurology: 33430 EEG include record awake & drowsy
--- NOTE | 2021-09-22 20:06 | Hospitalist Progress Note ---
Date of Service September 22, 2021 Assessment & Plan (1) Frequent falls: Plan: Patient has been having frequent falls and initially the thought was she was developing a parkinsonian type disorder. Agree with admitting physician and recurrent falls appears to be due to a n eurological condition with significant benign essential tremor type Appreciate neurological review and pending seizure medication levels, brain/cervical spine MRI and EEG for further workup however tremor appears consistent with benign essential tremor - will defer starting any new medications at this time for this pending ongoing neurological workup Certainly medications such as paroxetine are generally avoided in this age group however since she has been on this for > 2 years and no withdrawal during that time I do not suspect this is the cause and do not wish to cause a withdrawal at the current time to complicate the picture. Paroxetine (as with any SSRI) can also make benign essential tremor worse. Telemetry - without arrhythmia although difficult to interpret most of the time with her tremor B12 and TSH levels REVIEWED EEG negative. Perhaps atypical parkinsons appreciate input from Dr. Sadler. awaiting placement (2) Benign essential tremor: Plan: Tremor very consistent with this diagnosis. Doubtful Parkinson's - agree with neurology review. Possible Keppra, Paroxetine, Vimpat making this worse - will defer anti-seizure medication changes to neurology Topamax can be used as treatment for essential tremor so this would be favored as anti-convulsant. (3) Rib fracture: Plan: For the patient's rib fracture will avoid opiates use scheduled Tylenol Lidoderm patch incentive spirometry breathing. (4) Seizure disorder: Plan: For the patient's seizure disorder she takes Vimpat 200 mg twice daily, Keppra 1000 twice daily, and Topamax 50 at bedtime these will be continued with pending neurology evaluation (5) Dementia: Plan: Donepezil continued at 5 mg a day (6) Depression: Plan: Paroxetine is continued to 20 mg a day Plan: VTE Prophylaxis - no SCDs due to falls risk, low risk for chemical prophylaxis Code - full, discussed on admission Disposition - stable to downgrade to med/tele Admission and Anticipated Discharge Date Admission Date: September 20, 2021 Subjective Patient reports no new symptoms. Son is concerned about lewy body demntia Review of Systems Review of Systems: All systems reviewed & are unremarkable except as noted in HPI & below Physical Exam Constitutional: WD/WN, vitals as above ENMT: external ear and nose normal, oropharynx normal Neck: trachea midline, no thyromegaly Respiratory: normal respiratory effort, lungs clear to auscultation Cardiovascular: RRR, no murmur, no edema Gastrointestinal (Abdomen): normal bowel sounds, soft, nontender, no hepatosplenomegaly Skin: no rashes, warm and dry Neurologic: moves all extremities and awake; not confused Speech / Cognition: normal speech Motor/Sensory: + tremor (action > postural > resting) Coordination: normal oouxvf-jv-fprr test Psychiatric: A+Ox3, euthymic affect Results & Data Results & Data ([facility]) Vital Signs (Past 12 Hours) Vital Signs Temp Pulse Pulse Resp BP Pulse Ox 09/22/21 15:36 36.8 C 62 20 136/81 96 09/22/21 15:22 72 09/22/21 12:57 59 L 09/22/21 11:33 36.5 C 65 20 127/74 97 PG Care Time/CCT Total # of Minutes Spent Total Time Spent with Patient: Total time spent is greater than 50% in coordination of care (as documented) at patient's floor/unit and/or counseling patient: Coding Level of Care Code 21359 Subseq Hosp Care Lvl 2 Diagnoses Frequent falls R29.6 Benign essential tremor G25.0 Rib fracture S22.39XA Seizure disorder G40.909 Dementia F03.90 Depression F32.A Time Spent (min) 25
[2021-09-22] MEDS: TOPIRAMATE 50 MG TAB PO SCH (21:20)
--- NOTE | 2021-09-23 09:18 | Hospitalist Progress Note ---
Date of Service September 23, 2021 Assessment & Plan (1) Frequent falls: Plan: Patient has been having frequent falls and initially the thought was she was developing a parkinsonian type disorder. Agree with admitting physician and recurrent falls appears to be due to a n eurological condition with significant benign essential tremor type Appreciate neurological review and pending seizure medication levels, brain/cervical spine MRI and EEG for further workup however tremor appears consistent with benign essential tremor - Certainly medications such as paroxetine are generally avoided in this age group however since she has been on this for > 2 years and no withdrawal during that time I do not suspect this is the cause and do not wish to cause a withdrawal at the current time to complicate the picture. Paroxetine (as with any SSRI) can also make benign essential tremor worse. Telemetry - without arrhythmia although difficult to interpret most of the time with her tremor B12 and TSH levels REVIEWED EEG negative. Perhaps atypical parkinsons appreciate input from Dr. Sadler. will try low dose sinemet on pm of 09/23/21 awaiting placement (2) Benign essential tremor: Plan: Tremor very consistent with this diagnosis. Doubtful Parkinson's - agree with neurology review. Possible Keppra, Paroxetine, Vimpat making this worse - will defer anti-seizure medication changes to neurology Topamax can be used as treatment for essential tremor so this would be favored as anti-convulsant. (3) Rib fracture: Plan: For the patient's rib fracture will avoid opiates use scheduled Tylenol Lidoderm patch incentive spirometry breathing. (4) Seizure disorder: Plan: For the patient's seizure disorder she takes Vimpat 200 mg twice daily, Keppra 1000 twice daily, and Topamax 50 at bedtime these will be continued with pending neurology evaluation (5) Dementia: Plan: Donepezil continued at 5 mg a day (6) Depression: Plan: Paroxetine is continued to 20 mg a day Plan: VTE Prophylaxis - no SCDs due to falls risk, low risk for chemical prophylaxis Code - full, discussed on admission Disposition - looking for acute rehab placement Admission and Anticipated Discharge Date Admission Date: September 20, 2021 Subjective Patient says she feels no better nor worse than when she arrived. She still has significant rib pain from her rib fractures. Increasing her Topamax did not help any of her tremor. Review of Systems Review of Systems: Mild distress and fatigue no headache, no visual changes no speech or swallowing issues Left-sided chest wall pleuritic pain, no pressure or palpitations no shortness of breath, cough or wheezes does have some splinting to deep breaths on the left no abdominal pain, nausea or vomiting, diarrhea or constipation no dysuria, hematuria or frequency no focal joint pain or swelling no back pain, CVA tenderness or radicular pain no bruising, bleeding or rashes no focal signs of weakness or numbness or altered sensation I did observe her walk she does shuffle somewhat but I have certainly seen worse she does have both resting and intention tremors present no complaints of anxiety or depression.. Physical Exam Physical Exam: The patient appeared well nourished and normally developed. Vital signs as documented. Head exam is normocephalic atraumatic Neck is without JVD, thyromegaly, or carotid bruits. Lungs are clear to auscultation, no focal loss of breath sounds Cardiac exam, Rhythm is regular.. No murmurs, rubs or gallops. Ribs are sore in the left side Abdominal exam reveals normal bowel sounds, soft non tender, no masses Extremities are nonedematous and both pedal pulses are present Neurologic exam is alert and oriented x3 no focal loss of strength or sensation some tremor but finger-nose is intact there is no palmar drift Skin is without bruises or rashes Psychologically is without concerns for anxiety or depression.. Results & Data Results & Data ([facility]) Vital Signs (Past 12 Hours) Vital Signs Temp Pulse Pulse Resp BP Pulse Ox 09/23/21 07:55 97.9 F 66 15 136/72 97 09/23/21 07:39 64 09/23/21 03:48 98.1 F 61 18 111/72 96 09/22/21 23:00 98.1 F 67 18 155/82 H 97 09/22/21 22:00 64 PG Care Time/CCT Total # of Minutes Spent Total Time Spent with Patient: Total time spent is greater than 50% in coordination of care (as documented) at patient's floor/unit and/or counseling patient: Coding Level of Care Code 61336 Subseq Hosp Care Lvl 2 Diagnoses Frequent falls R29.6 Benign essential tremor G25.0 Rib fracture S22.39XA Seizure disorder G40.909 Dementia F03.90 Depression F32.A
--- NOTE | 2021-09-23 10:08 | Neurology Progress Note ---
Date of Service September 23, 2021 Assessment & Plan (1) Tremor: (2) Seizure disorder: (3) Gait disorder: (4) Vitamin B12 deficiency: Plan: Mixed tremor, asymmetric, right hand greater than left, has resting postural and action component. Also has an associated perioral/chin tremor. Does not look like tardive dyskinesia. Does not have a classic pill-rolling resting tremor or other parkinsonian signs such as rigidity or bradykinesia. However, patient does gait dysfunction, magnetic short shuffling type steps, chronic progressive issue as well. Again, no imaging findings suggestive of NPH or obvious structural disease of the basal ganglia or cerebellum or other abnormalities that would otherwise explain her tremors and gait dysfunction. Could have atypical parkinsonism. History also notable for seizure disorder with extensive evaluations in [place] over 10 years ago. Patient seizures have been stable for at least the past 4 months on her current anticonvulsant regimen. I did increase this patient's dosage of topiramate yesterday to further address her tremor. Would have her continue with topiramate 50 mg twice daily for the next 5 to 7 days. If no significant improvement in her tremor could increase further to 100 mg twice daily. If topiramate is not effective for her tremor would consider adding propranolol or possibly primidone. Alternatively, could potentially consider a trial of Sinemet for her tremor, but again, she does not exhibit rigidity or bradykinesia or a more typical pill-rolling resting tremor. I doubt her tremor is due to any of her medications. This patient does appear to have mild vitamin B12 deficiency. Although I doubt her tremors or gait disorder are directly related to vitamin B12 deficiency, I think treating this issue is indicated. For symptomatic B12 deficiency would typically recommend B12 injections. Would recommend 1000 mcg subcu or IM once per week for 6 weeks, then follow with oral supplementation, 1000 mcg/day. Patient may follow-up with me or one of our APCs in 2 to 3 weeks after christopher harris. Admission and Anticipated Discharge Date Admission Date: September 20, 2021 Subjective Follow-up for tremor, seizure disorder, gait dysfunction The patient continues to complain of a fairly persistent upper extremity resting postural and action tremor, right greater than left, mild associated perioral/chin tremor. She is a bit upset this morning as there was some commotion with her roommate and hospital staff. Patient again denies experiencing significant orthostatic dizziness, restless leg syndrome, or anosmia. She does not have a pill-rolling resting tremor, rigidity, or bradykinesia. Patient seizures have been stable on Vimpat and Keppra. Also takes topiramate, although primarily for migraine. This issue has been stable as well. I did increase her dosage of topiramate yesterday to potentially address her tremor a bit further. Has not perceived much improvement as of yet but seems to be tolerating this medication well. Review of Systems Neurologic: + tremor(s); no restless legs and no headache(s) Psychiatric: + anxiety; no hallucinations Results & Data ([facility]) Vital Signs (Past 12 Hours) Vital Signs Temp Pulse Pulse Resp BP Pulse Ox 09/23/21 07:55 36.6 C 66 15 136/72 97 09/23/21 07:39 64 09/23/21 03:48 36.7 C 61 18 111/72 96 09/22/21 23:00 36.7 C 67 18 155/82 H 97 09/22/21 22:00 64 Laboratory Results Vitamin B12 level yesterday was 133, normal range 188 and 914. TSH yesterday was 1.532. Transaminases normal. Sodium normal. Keppra and Vimpat levels are pending. Diagnostic Findings EEG completed yesterday was within normal limits. No epileptiform abnormalities observed. Exam (Neuro) Neurologic: Oriented to:: Person, Place and Time Memory: Short Term Intact and Remote Intact Attention: Span Intact and Concentration Intact Speech Fluency: negative Dysarthria or Dysfluency Fund of Knowledge: Current Events, Past History and Vocabulary Cranial Nerves: Normal II, III, IV, and VII Motor Strength: Normal Lower Extremities and Normal Upper Extremities Rigidity: None Muscle Bulk/Involuntary Movements: Intention Tremor, Rest Tremor (Arm) and Action Tremor; negative Pill Rolling Tremor Coordination: Normal PG Care Time/CCT Total # of Minutes Spent Total Time Spent with Patient: Total time spent is greater than 50% in coordination of care (as documented) at patient's floor/unit and/or counseling patient: Coding Level of Care Code 22972 Subseq Hosp Care Lvl 2 Diagnoses Tremor R25.1 Seizure disorder G40.909 Gait disorder R26.9 Vitamin B12 deficiency E53.8
[2021-09-23] MEDS: PARoxetine HCL 20 MG TAB PO SCH (10:45)
[2021-09-23] MEDS: LIDOCAINE 5% 1 PATCH TD SCH (10:45)
[2021-09-23] MEDS: valACYclovir HCL 500 MG TABLET PO SCH (10:46)
[2021-09-23] MEDS: ACETAMINOPHEN 500 MG TAB PO SCH ×3 (10:46→21:30)
[2021-09-23] MEDS: TOPIRAMATE 50 MG TAB PO SCH (10:46)
[2021-09-23] MEDS: levETIRAcetam 500 MG TAB PO SCH ×2 (10:46→21:31)
[2021-09-23] MEDS: DONEPEZIL HCL 5 MG TAB PO SCH (10:46)
[2021-09-23] MEDS: LACOSAMIDE 50 MG TABLET PO SCH ×2 (11:13→22:09)
[2021-09-23] MEDS: KETOROLAC TROMETHAMINE 15 MG/ML VIAL IV PRN ×2 (11:16→22:47)
--- NOTE | 2021-09-23 21:00 | Hospitalist Progress Note ---
Date of Service September 23, 2021 Assessment & Plan (1) Frequent falls: Plan: Patient has been having frequent falls and initially the thought was she was developing a parkinsonian type disorder. Agree with admitting physician and recurrent falls appears to be due to a n eurological condition with significant benign essential tremor type Appreciate neurological review and pending seizure medication levels, brain/cervical spine MRI and EEG for further workup however tremor appears consistent with benign essential tremor - Certainly medications such as paroxetine are generally avoided in this age group however since she has been on this for > 2 years and no withdrawal during that time I do not suspect this is the cause and do not wish to cause a withdrawal at the current time to complicate the picture. Paroxetine (as with any SSRI) can also make benign essential tremor worse. Telemetry - without arrhythmia although difficult to interpret most of the time with her tremor B12 and TSH levels REVIEWED EEG negative. Perhaps atypical parkinsons appreciate input from Dr. Sadler. will try low dose sinemet on pm of 09/23/21 awaiting placement (2) Benign essential tremor: Plan: Tremor very consistent with this diagnosis. Doubtful Parkinson's - agree with neurology review. Possible Keppra, Paroxetine, Vimpat making this worse - will defer anti-seizure medication changes to neurology Topamax can be used as treatment for essential tremor so this would be favored as anti-convulsant. (3) Rib fracture: Plan: For the patient's rib fracture will avoid opiates use scheduled Tylenol Lidoderm patch incentive spirometry breathing. (4) Seizure disorder: Plan: For the patient's seizure disorder she takes Vimpat 200 mg twice daily, Keppra 1000 twice daily, and Topamax 50 at bedtime these will be continued with pending neurology evaluation (5) Dementia: Plan: Donepezil continued at 5 mg a day (6) Depression: Plan: Paroxetine is continued to 20 mg a day Plan: VTE Prophylaxis - no SCDs due to falls risk, low risk for chemical prophylaxis Code - full, discussed on admission Disposition - looking for acute rehab placement Admission and Anticipated Discharge Date Admission Date: September 20, 2021 Results & Data Results & Data ([facility]) Vital Signs (Past 12 Hours) Vital Signs Temp Pulse Pulse Resp BP Pulse Ox 09/23/21 17:08 72 09/23/21 15:58 36.6 C 67 17 152/78 H 97 09/23/21 11:52 36.7 C 94 H 18 176/47 H 94 09/23/21 11:31 36.8 C 18 132/77 96 PG Care Time/CCT Total # of Minutes Spent Total Time Spent with Patient: Total time spent is greater than 50% in coordination of care (as documented) at patient's floor/unit and/or counseling patient: Coding Diagnoses Frequent falls R29.6 Benign essential tremor G25.0 Rib fracture S22.39XA Seizure disorder G40.909 Dementia F03.90 Depression F32.A
[2021-09-23] MEDS: traMADol HCL 50 MG TABLET PO PRN (21:31)
[2021-09-23] MEDS: CARBIDOPA/LEVODOPA 25/100MG TAB PO SCH (21:31)
[2021-09-24] MEDS: LACOSAMIDE 50 MG TABLET PO SCH ×2 (08:56→21:23)
[2021-09-24] MEDS: PARoxetine HCL 20 MG TAB PO SCH (08:56)
[2021-09-24] MEDS: valACYclovir HCL 500 MG TABLET PO SCH (08:57)
[2021-09-24] MEDS: levETIRAcetam 500 MG TAB PO SCH ×2 (08:57→20:24)
[2021-09-24] MEDS: DONEPEZIL HCL 5 MG TAB PO SCH (08:57)
[2021-09-24] MEDS: CARBIDOPA/LEVODOPA 25/100MG TAB PO SCH ×3 (08:58→20:23)
[2021-09-24] MEDS: ACETAMINOPHEN 500 MG TAB PO SCH ×3 (08:59→22:16)
[2021-09-24] MEDS: LIDOCAINE 5% 1 PATCH TD SCH (08:59)
[2021-09-24] MEDS: TOPIRAMATE 50 MG TAB PO SCH (09:00)
--- NOTE | 2021-09-24 09:57 | Neurology Progress Note ---
Date of Service September 24, 2021 Assessment & Plan (1) Tremor: (2) Parkinsonian features: (3) Seizure disorder: Plan: Stable seizure disorder, may continue with Vimpat and Keppra at the current dosages. Anticonvulsant levels pending. Asymmetric, right greater than left, mixed tremor with resting, postural and action components. Associated mild chin tremor as well as associated magnetic/shuffling gait pattern. Not overtly rigid or bradykinetic, however. Agree with trial of Sinemet. Continue with 25/100 mg twice daily, plan to increase to 3 times daily after 5 to 7 days depending on response and tolerability going forward. Topiramate reduced back down to 50mg/day. Continue with reduced dosage given her history of kidney stones. Patient may follow-up with me or one of our APCs in clinic in 2 to 3 weeks after discharge. However, she does have a neurologist in [place], Dr. Mosley and she may wish to follow-up with him. Admission and Anticipated Discharge Date Admission Date: September 20, 2021 Subjective Follow-up for tremor, seizure disorder, gait disorder The patient continues to report a bothersome, persistent upper extremity tremor, right greater than left, resting postural and action components, interference with eating and handwriting. Associated mild perioral/chin tremor. Associated magnetic shuffling gait, poor balance. No rigidity or bradykinesia. Topiramate dosage was increased to twice daily without much perceivable improvement in her tremor. She does report a remote history of kidney stones. Has not had any seizures during her current hospitalization, last potential seizure episode occurred about 4 months ago according to the patient. She continues with Vimpat and Keppra. She was started on a low-dose of Sinemet during this hospitalization. 25/100 mg, 1 tablet twice daily. Patient has received this medication although has not really perceived much change or improvement in her tremor. Review of Systems Eyes: no blind spots and no diplopia Neurologic: + gait abnormality, + tremor(s) and + memory loss; no headache(s) Results & Data ([facility]) Vital Signs (Past 12 Hours) Vital Signs Temp Pulse Pulse Resp BP BP Pulse Ox 09/24/21 07:53 36.9 C 64 17 132/74 95 09/24/21 04:00 36.5 C 64 18 126/76 95 09/23/21 23:00 36.8 C 70 18 111/67 96 09/23/21 22:18 66 Laboratory Results Vitamin B12 133, TSH 1.532. Keppra and Vimpat levels pending. Diagnostic Findings MRI of the brain and cervical spine reviewed. No significant abnormalities. Has mild age-related involutional change and minimal microangiopathic disease. No hydrocephalus, no cerebellar atrophy. Has mild intervertebral degenerative disc disease with mild central canal and mild to moderate foraminal stenosis at various levels. EEG completed September 22 was within normal limits, no epileptiform abnormalities. Exam (Neuro) Neurologic: Oriented to:: Person, Place and Time Memory: Remote Intact; negative Short Term Intact Attention: Span Intact and Concentration Intact Speech Fluency: negative Dysarthria or Dysfluency Fund of Knowledge: Past History and Vocabulary Cranial Nerves: Normal II, III, IV, and VII Motor Strength: Normal Lower Extremities and Normal Upper Extremities Rigidity: None Coordination: Limited Balance; negative Finger-Nose Abnormal PG Care Time/CCT Total # of Minutes Spent Total Time Spent with Patient: Total time spent is greater than 50% in coordination of care (as documented) at patient's floor/unit and/or counseling patient: Coding Level of Care Code 97081 Subseq Hosp Care Lvl 2 Diagnoses Tremor R25.1 Parkinsonian features R25.9 Seizure disorder G40.909
--- NOTE | 2021-09-24 17:00 | Electrocardiogram Report ---
Test Reason : Blood Pressure : / mmHG Vent. Rate : 072 BPM Atrial Rate : 072 BPM P-R Int : 198 ms QRS Dur : 090 ms QT Int : 438 ms P-R-T Axes : 058 -02 080 degrees QTc Int : 479 ms Normal sinus rhythm Incomplete right bundle branch block Nonspecific T wave abnormality Prolonged QT Abnormal ECG When compared with ECG of 20-SEP-2021 12:42, ST no longer depressed in Anterior leads Confirmed by Karthik Gong ([id number]) on 09/24/2021 5:00:03 PM Referred By: REFERRED SELF Confirmed By:Jason Gong
[2021-09-24] MEDS ORDERED: ALPRAZolam 0.25 MG TABLET PO PRN (18:14)
--- NOTE | 2021-09-24 18:18 | Hospitalist Progress Note ---
Date of Service September 24, 2021 Assessment & Plan (1) Frequent falls: Plan: Patient has been having frequent falls and initially the thought was she was developing a parkinsonian type disorder. Agree with admitting physician and recurrent falls appears to be due to a n eurological condition with significant benign essential tremor type Appreciate neurological review and pending seizure medication levels, brain/cervical spine MRI and EEG for further workup however tremor appears consistent with benign essential tremor - Certainly medications such as paroxetine are generally avoided in this age group however since she has been on this for > 2 years and no withdrawal during that time I do not suspect this is the cause and do not wish to cause a withdrawal at the current time to complicate the picture. Paroxetine (as with any SSRI) can also make benign essential tremor worse. Telemetry - without arrhythmia although difficult to interpret most of the time with her tremor B12 and TSH levels REVIEWED EEG negative. Perhaps atypical parkinsons appreciate input from Dr. Sadler. increase low dose sinemet 09/24/21 awaiting placement (2) Benign essential tremor: Plan: Tremor very consistent with this diagnosis. Doubtful Parkinson's - agree with neurology review. Possible Keppra, Paroxetine, Vimpat making this worse - will defer anti-seizure medication changes to neurology Topamax can be used as treatment for essential tremor so this would be favored as anti-convulsant. (3) Rib fracture: Plan: For the patient's rib fracture will avoid opiates use scheduled Tylenol Lidoderm patch incentive spirometry breathing. (4) Seizure disorder: Plan: For the patient's seizure disorder she takes Vimpat 200 mg twice daily, Keppra 1000 twice daily, and Topamax 50 at bedtime these will be continued with pending neurology evaluation (5) Dementia: Plan: Donepezil continued at 5 mg a day (6) Depression: Plan: Paroxetine is continued to 20 mg a day (7) Elevated blood pressure reading: Plan: will try some low dose propranolol to help also with tremor Plan: VTE Prophylaxis - no SCDs due to falls risk, low risk for chemical prophylaxis Code - full, discussed on admission Disposition - looking for acute rehab placement Admission and Anticipated Discharge Date Admission Date: September 20, 2021 Subjective pt thinks she is slignlty better with sinemet, bp slightly up Review of Systems Review of Systems: Unobtainable due to cognitive status Physical Exam Physical Exam: The patient appeared well nourished and normally developed. Vital signs as documented. Head exam is normocephalic atraumatic Neck is without JVD, thyromegaly, or carotid bruits. Lungs are clear to auscultation, no focal loss of breath sounds Cardiac exam, Rhythm is regular.. No murmurs, rubs or gallops. Ribs are sore in the left side Abdominal exam reveals normal bowel sounds, soft non tender, no masses Extremities are nonedematous and both pedal pulses are present Neurologic exam is alert and oriented x3 no focal loss of strength or sensation some tremor but finger-nose is intact there is no palmar drift Skin is without bruises or rashes Psychologically is without concerns for anxiety or depression.. Results & Data Results & Data ([facility]) Vital Signs (Past 12 Hours) Vital Signs Temp Pulse Pulse Resp BP Pulse Ox Pulse Ox 09/24/21 17:00 96 09/24/21 16:45 97.5 F L 106 H 18 151/73 H 96 09/24/21 16:38 98.2 F 70 18 123/73 95 09/24/21 11:39 97.9 F 67 17 148/76 H 97 09/24/21 09:00 65 09/24/21 07:53 98.4 F 64 17 132/74 95 PG Care Time/CCT Total # of Minutes Spent Total Time Spent with Patient: Total time spent is greater than 50% in coordination of care (as documented) at patient's floor/unit and/or counseling patient: Coding Level of Care Code 71329 Subseq Hosp Care Lvl 3 Diagnoses Frequent falls R29.6 Benign essential tremor G25.0 Rib fracture S22.39XA Seizure disorder G40.909 Dementia F03.90 Depression F32.A Elevated blood pressure reading R03.0
[2021-09-24] MEDS: PROPRANOLOL HCL 10 MG TAB PO SCH (20:24)
[2021-09-24] MEDS: KETOROLAC TROMETHAMINE 15 MG/ML VIAL IV PRN (21:23)
[2021-09-25] MEDS: TOPIRAMATE 50 MG TAB PO SCH (08:59)
[2021-09-25] MEDS: CARBIDOPA/LEVODOPA 25/100MG TAB PO SCH ×3 (08:59→20:48)
[2021-09-25] MEDS: PARoxetine HCL 20 MG TAB PO SCH (08:59)
[2021-09-25] MEDS: valACYclovir HCL 500 MG TABLET PO SCH (08:59)
[2021-09-25] MEDS: PROPRANOLOL HCL 10 MG TAB PO SCH ×2 (09:00→20:49)
[2021-09-25] MEDS: LIDOCAINE 5% 1 PATCH TD SCH (09:00)
[2021-09-25] MEDS: levETIRAcetam 500 MG TAB PO SCH ×2 (09:00→20:49)
[2021-09-25] MEDS: DONEPEZIL HCL 5 MG TAB PO SCH (09:00)
[2021-09-25] MEDS: ACETAMINOPHEN 500 MG TAB PO SCH ×3 (09:00→20:47)
[2021-09-25] MEDS: LACOSAMIDE 50 MG TABLET PO SCH ×2 (09:22→20:48)
--- NOTE | 2021-09-25 09:32 | Neurology Progress Note ---
Date of Service September 25, 2021 Assessment & Plan (1) Parkinsonian features: (2) Seizure disorder: (3) Gait disorder: Plan: Mixed asymmetric tremor, right greater than left, with some parkinsonian features. Associated magnetic/apractic gait pattern as well. Not truly rigid or bradykinetic, however. Nonetheless, may have atypical parkinsonism. Agree with Sinemet as ordered, continue with 25/100 mg 3 times per day. It looks like Inderal was started as well, this medication may also provide some tremor dampening. Continue with Vimpat, Keppra, and topiramate at the current dosages. Patient seizures have been stable. Patient may follow-up with me in neurology clinic in 2 to 3 weeks, he also follow-up with her other neurologist, Dr. Mosley. Admission and Anticipated Discharge Date Admission Date: September 20, 2021 Subjective Follow-up for tremor, history of seizure disorder Patient reports modest improvement in her tremor with recent initiation of Sinemet. She has a bilateral upper extremity mixed tremor, right greater than left, resting postural and action component, associated chin tremor as well. Tremor intensity fluctuates. Patient indicates positive response to Sinemet recently. Did not receive her Sinemet yet this morning. Seizures have been stable. Gait dysfunction ongoing issue. Review of Systems Neurologic: + gait abnormality and + tremor(s); no headache(s) and no memory loss Psychiatric: no depression and no hallucinations Results & Data ([facility]) Vital Signs (Past 12 Hours) Vital Signs Temp Pulse Pulse Resp BP Pulse Ox 09/25/21 07:54 36.6 C 58 L 20 132/74 95 09/25/21 04:00 36.3 C L 61 18 130/69 95 09/24/21 23:24 63 09/24/21 23:00 36.5 C 18 134/78 96 Exam (Neuro) Neurologic: Oriented to:: Person, Place and Time Attention: Span Intact and Concentration Intact Speech Fluency: negative Dysarthria or Dysfluency Fund of Knowledge: Vocabulary Cranial Nerves: Normal II, III, IV, and VII Motor Strength: Normal Lower Extremities and Normal Upper Extremities Rigidity: None Muscle Bulk/Involuntary Movements: Rest Tremor (Arm) and Action Tremor Details: Bilateral upper extremity resting, postural, and action tremor, right greater th an left, associated chin tremor noted. Not bradykinetic. Not rigid. Coding Level of Care Code 73944 Subseq Hosp Care Lvl 2 Diagnoses Parkinsonian features R25.9 Seizure disorder G40.909 Gait disorder R26.9
--- NOTE | 2021-09-25 14:05 | Hospitalist Progress Note ---
Date of Service September 25, 2021 Assessment & Plan (1) Frequent falls: Plan: Patient has been having frequent falls and initially the thought was she was developing a parkinsonian type disorder. Agree with admitting physician and recurrent falls appears to be due to a n eurological condition with significant benign essential tremor type Appreciate neurological review and pending seizure medication levels, brain/cervical spine MRI and EEG for further workup however tremor appears consistent with benign essential tremor - Certainly medications such as paroxetine are generally avoided in this age group however since she has been on this for > 2 years and no withdrawal during that time I do not suspect this is the cause and do not wish to cause a withdrawal at the current time to complicate the picture. Paroxetine (as with any SSRI) can also make benign essential tremor worse. Telemetry - without arrhythmia although difficult to interpret most of the time with her tremor B12 and TSH levels REVIEWED EEG negative. Perhaps atypical parkinsons appreciate input from Dr. Sadler. increase low dose sinemet 09/24/21 with good results added propranolol for blood pressure control and help with tremor awaiting placement (2) Benign essential tremor: Plan: Tremor very consistent with this diagnosis. Doubtful Parkinson's - agree with neurology review. Possible Keppra, Paroxetine, Vimpat making this worse - will defer anti-seizure medication changes to neurology Topamax continues (3) Rib fracture: Plan: For the patient's rib fracture will avoid opiates use scheduled Tylenol Lidoderm patch incentive spirometry breathing. (4) Seizure disorder: Plan: For the patient's seizure disorder she takes Vimpat 200 mg twice daily, Keppra 1000 twice daily, and Topamax 50 at bedtime these will be continued with agreement by neurology evaluation (5) Dementia: Plan: Donepezil continued at 5 mg a day (6) Depression: Plan: Paroxetine is continued to 20 mg a day (7) Elevated blood pressure reading: Plan: improved with low dose propranolol to help also with tremor Plan: VTE Prophylaxis - no SCDs due to falls risk, low risk for chemical prophylaxis Code - full, discussed on admission Disposition - looking for acute rehab placement Admission and Anticipated Discharge Date Admission Date: September 20, 2021 Subjective pt feels much improved with escalation of sinemet and starting propranolol, looking forward to rehab, still bothered by rib frature pain Review of Systems Review of Systems: moderate distress and fatigue no headache, no visual changes no speech or swallowing issues left mechanical chest pain, no pressure or palpitations no shortness of breath, cough or wheezes no abdominal pain, nausea or vomiting, diarrhea or constipation no dysuria, hematuria or frequency no focal joint pain or swelling no back pain, CVA tenderness or radicular pain no bruising, bleeding or rashes no focal signs of weakness or numbness or altered sensation, still some tremmor but much improved no complaints of anxiety or depression.. Physical Exam Physical Exam: The patient appeared well nourished and normally developed. Vital signs as documented. Head exam is normocephalic atraumatic Neck is without JVD, thyromegaly, or carotid bruits. Lungs are clear to auscultation, no focal loss of breath sounds Cardiac exam, Rhythm is regular.. No murmurs, rubs or gallops. Ribs are sore in the left side Abdominal exam reveals normal bowel sounds, soft non tender, no masses Extremities are nonedematous and both pedal pulses are present Neurologic exam is alert and oriented x3 no focal loss of strength or sensation, improved and reduced but not extinguished tremor Skin is without bruises or rashes Psychologically is without concerns for anxiety or depression.. Results & Data Results & Data ([facility]) Vital Signs (Past 12 Hours) Vital Signs Temp Pulse Pulse Resp BP Pulse Ox 09/25/21 11:09 98.1 F 61 20 144/79 H 96 09/25/21 09:58 59 L 09/25/21 07:54 97.9 F 58 L 20 132/74 95 09/25/21 04:00 97.3 F L 61 18 130/69 95 PG Care Time/CCT Total # of Minutes Spent Total Time Spent with Patient: Total time spent is greater than 50% in coordination of care (as documented) at patient's floor/unit and/or counseling patient: Coding Level of Care Code 26389 Subseq Hosp Care Lvl 2 Diagnoses Frequent falls R29.6 Benign essential tremor G25.0 Rib fracture S22.39XA Seizure disorder G40.909 Dementia F03.90 Depression F32.A Elevated blood pressure reading R03.0
[2021-09-25] MEDS: traMADol HCL 50 MG TABLET PO PRN ×2 (14:48→23:46)
[2021-09-26] MEDS: DONEPEZIL HCL 5 MG TAB PO SCH (08:04)
[2021-09-26] MEDS: CARBIDOPA/LEVODOPA 25/100MG TAB PO SCH ×2 (08:04→13:17)
[2021-09-26] MEDS: levETIRAcetam 500 MG TAB PO SCH (08:04)
[2021-09-26] MEDS: PARoxetine HCL 20 MG TAB PO SCH (08:04)
[2021-09-26] MEDS: valACYclovir HCL 500 MG TABLET PO SCH (08:05)
[2021-09-26] MEDS: TOPIRAMATE 50 MG TAB PO SCH (08:05)
[2021-09-26] MEDS: PROPRANOLOL HCL 10 MG TAB PO SCH (08:05)
[2021-09-26] MEDS: ACETAMINOPHEN 500 MG TAB PO SCH ×2 (08:05→13:18)
[2021-09-26] MEDS: LACOSAMIDE 50 MG TABLET PO SCH (08:36)
[2021-09-26] MEDS: LIDOCAINE 5% 1 PATCH TD SCH (09:45)
--- NOTE | 2021-09-26 11:04 | Hospitalist Progress Note ---
Date of Service September 26, 2021 Assessment & Plan (1) Frequent falls: Plan: Much improved with current treatment plan. Appreciate neurology consultation. No significant findings on brain MRI or EEG. Sinemet dosage has been uptitrated and she is now on propranolol (2) Benign essential tremor: Plan: Doubtful Parkinson's - agree with neurology review. Improved with up titration of Sinemet and addition of propranolol. (3) Rib fracture: Plan: Pain control measures. Avoid opiates. Will use scheduled Tylenol prn and Lidod erm patch. Continue incentive spirometry (4) Seizure disorder: Plan: Controlled with Vimpat 200 mg twice daily, Keppra 1000 twice daily, and Topamax 50 at bedtime (5) Dementia: Plan: Donepezil continued at 5 mg a day (6) Depression: Plan: Paroxetine is continued to 20 mg a day (7) Elevated blood pressure reading: Plan: improved with low dose propranolol to help also with tremor Plan: VTE Prophylaxis - no SCDs due to falls risk, low risk for chemical prophylaxis Code - full Disposition -eventual discharge to inpatient rehabilitation. Admission and Anticipated Discharge Date Admission Date: September 20, 2021 Subjective Alert and pleasant. Overall she is stable. Awaiting eventual placement at [facility] for inpatient rehabilitation. Vital signs are stable. Review of Systems Review of Systems: Constitutional-no fever or chills ENT-no blurred vision, no double vision, no epistaxis, no sore throat Respiratory-no cough, no wheezing, no shortness of breath Cardiac-no palpitations, no chest pain, no syncope GI-no nausea, vomiting, diarrhea, melena, hematochezia -no urinary retention, no urinary incontinence, no dysuria, no hematuria Musculoskeletal-no joint pain, no muscle tenderness Skin-no bruising, no rashes, no pruritus Neuro-no isolated weakness, no paresthesia, no weakness Psych-no depression, no anxiety Physical Exam Physical Exam: General-alert and oriented x3, no fevers, no chills HEENT-head atraumatic and normocephalic, TMs intact bilaterally, pupils equal and reactive to light, extraocular muscles intact Neck-no lymphadenopathy or thyromegaly, trachea midline Chest-clear to auscultation percussion. No rales wheezing or rhonchi Cardiac-regular rate and rhythm, normal S1 and S2, no murmurs Abdomen-normal bowel sounds, nontender, no hepatosplenomegaly Extremities-no cyanosis, clubbing, or edema Neuro-resting tremor is much improved Canial nerves II through XII intact, motor and sensory function within normal limits, strength symmetrical , no focal deficits Psych-normal affect, normal mood Results & Data Results & Data ([facility]) Vital Signs (Past 12 Hours) Vital Signs Temp Pulse Pulse Resp BP Pulse Ox 09/26/21 07:31 36.6 C 65 18 108/65 96 09/26/21 07:18 60 09/26/21 03:44 36.7 C 62 18 100/59 L 94 09/26/21 01:00 67 Laboratory Results 09/22/21 07:09 09/22/21 07:09 PG Care Time/CCT Total # of Minutes Spent Total Time Spent with Patient: Total time spent is greater than 50% in coordination of care (as documented) at patient's floor/unit and/or counseling patient: Coding Level of Care Code 40211 Subseq Hosp Care Lvl 3 Diagnoses Frequent falls R29.6 Benign essential tremor G25.0 Rib fracture S22.39XA Seizure disorder G40.909 Dementia F03.90 Depression F32.A Elevated blood pressure reading R03.0
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
[2021-09-26] MEDS: traMADol HCL 50 MG TABLET PO PRN (13:17)
== END 2021-09-26 14:43 | DRG 92 ==
LOC: ED 12:27 → 2S 16:13 → SUATTDRO 16:13 → 2S 17:04 → 2W 09-21 18:38

== ENCOUNTER 2022-06-21 08:47 | Observation (INO) ==
--- NOTE | 2022-06-21 09:26 | Emergency Department Note ---
Impression & Plan Acute dehydration, Frequent falls, Seizure disorder, Acute UTI, COVID-19, Aneurysm of thoracic aorta ED Provider Note NAME: RAMESH SANCHES AGE: 77 SEX: F : 1945 ARRIVES VIA: Ambulance INFORMANT: Patient, ED PROVIDER(S): Royce Melton MD Chief Complaint: Fall, possible seizure HPI: Patient does present with son and daughter at bedside and there is concern for fall and possible seizure. Patient reported he was incontinent of stool. The patient is having an history of seizures and does take Keppra. Patient does take her scheduled medications regularly. [facility] this morning was found on the ground. Unsure as whether the patient was lying on her side flat or on her back. Patient does complain of allover body pain. Patient has had neck right shoulder and bilateral hip pain. The patient did not take anything for prior to arrival. Described as achy. Patient denies any shortness of breath abdominal pain nausea or vomiting. Patient did not take her morning medications. Patient symptoms been relatively constant worse with movement or attempting to ambulate. The patient was not able to get up on her own ROS: See HPI for pertinent positives and negatives. A total of 10 systems were reviewed and otherwise negative. Past medical history: See below Surgical history: See below Social history: See below Physical Exam: GENERAL: NAD, wearing a mask, non-toxic. EYE EXAM: Normal conjunctiva. PERRL, no anisocoria and EOM's grossly intact w/o pain. NECK: C-collar in place, midline C-spine discomfort without obvious step-offs. Chest: Mild discomfort to the right chest but no evidence of flail chest ecchymosis or crepitus. LUNGS: Clear to auscultation. Normal chest wall mechanics. HEART: NSR, no MRG. ABDOMEN: Abdomen soft, non-tender, normo-active bowel sounds, no masses, no rebound or guarding. BACK: No CVA TTP. SKIN: Bruising noted to the right scapular area and right upper arm. UPPER EXTREMITIES: Upper extremities are grossly normal. Pain to palpation of the right shoulder, bruising to the right scapular area and right upper arm. Decreased range of motion secondary to pain but neurovascular intact otherwise. LOWER EXTREMITIES: Grossly normal, no edema. Bilateral hip pain neurovascular tact distally, decreased range of motion secondary to pain, no sensory deficits and compartments are soft NEURO EXAM: A&O x3, cranial nerves II-XII grossly intact, normal speech, moves all 4 extremities. Differential diagnoses: Fracture, dislocation, contusion, intra-abdominal, pneumothorax, intrathoracic, intracranial, neurologic, compartment syndrome, rhabdomyolysis, as well as other pathologies. Course: Patient was seen and evaluated the bedside. Full history physical exam was performed. EKG interpreted by me Normal sinus rhythm with first-degree AV block, rate of 62, prolonged DC, normal QRS, normal axis, T wave version in V2 with slight depression. EKG looks grossly unchanged from comparison September 20, 2021 Imaging Studies: See Below Cardiac monitoring: An order was placed for continuous cardiac monitoring. The monitor shows a rate of 72 with sinus rhythm. MDM: Patient presented due to concern for fall possible seizure. The patient did have blood work completed did have CT of the head cervical spine thoracic and lumbar spine along with plain films of the chest scapula right shoulder and bilateral hips. Patient was ordered IV pain medication. Patient was ordered home dose Keppra 1 g IV. Patient is a normal white count H&H and platelet count. Kidney function is unremarkable albeit with prerenal azotemia. The patient did receive IV fluids. Urinalysis does show likely infection. Keppra level pending. COVID positive. The patient is not hypoxemic here. The patient's plain films do not show any obvious fracture. The patient's g CT of the head does not show any fracture or ICH. Cervical spine is negative. C-spine was cleared. Patient's lumbar spine is negative. Patient CT of the thoracic spine shows no acute fracture. The patient does have mild aneurysmal dilatation of the ascending thoracic aorta at 4.3 cm. The patient has no chest pains. I did discuss the aneurysm with the patient's son and stated that this would need to be followed serially in the outpatient setting. They may discuss this further with the inpatient team. Given the patient's possible seizure with associated UTI and COVID infection I did speak with the family he did not think that they would be able to appropriate care for the patient at home. The patient currently lives on her own. I did speak the on-call hospitalist Dr. Espinoza and the patient was admitted to the medicine service. 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: No Beliefs That Will Affect Care: None marital status: Current Living Situation: Alone current occupational status: retired Feels Safe at Home: Yes Assistive Devices: Walker Allergies Allergies Allergy/AdvReac Type Severity Reaction Status Date / Time Iodinated Contrast Media Allergy Intermediate Hives Verified 09/25/21 20:09 iodine Allergy Mild HIVES Verified 09/20/21 13:32 morphine Allergy Unknown Unknown Verified 09/25/21 20:09 simvastatin Allergy Unknown Unknown Verified 09/25/21 20:09 prednisone AdvReac Mild GI UPSET Verified 09/20/21 13:32 Home Meds Home Medications Medication Instructions Recorded Confirmed lacosamide 200 mg tablet (Vimpat) 200 mg PO BID ##0 11/29/12 06/21/22 levetiracetam 500 mg tablet 1,000 mg PO BID #0 tabs 11/29/12 06/21/22 valacyclovir 500 mg tablet 500 mg PO DAILY #0 tabs 11/29/12 06/21/22 topiramate 50 mg tablet 50 mg PO HS #0 tabs 07/20/16 06/21/22 acetaminophen 500 mg tablet 500 mg PO Q6H PRN Pain 09/20/21 06/21/22 donepezil 5 mg tablet 5 mg PO QAM 09/20/21 06/21/22 hydroxyzine pamoate 25 mg capsule 25 mg PO BID PRN allergies 09/20/21 06/21/22 paroxetine HCl 20 mg tablet 20 mg PO DAILY 09/20/21 06/21/22 ergocalciferol (vitamin D2) 1,250 50,000 unit PO WK 06/21/22 06/21/22 mcg (50,000 unit) capsule Previous Rx's Medication Instructions Recorded carbidopa 25 mg-levodopa 100 mg 1 tab PO TID #15 tabs 09/26/21 tablet (Sinemet) propranolol 10 mg tablet 10 mg PO BID #20 tabs 09/26/21 Results & Data (ED) Vital Signs Vital Signs - 24 hr 06/21/22 09:09 06/21/22 09:13 06/21/22 11:34 Temperature 36.7 C Temperature Source Oral Pulse Rate 63 Pulse Rate [Apical] 63 57 L Respiratory Rate 15 15 16 Respiratory Depth Normal Blood Pressure 150/74 H Blood Pressure [Left Arm] Blood Pressure Mean 99 Blood Pressure Mean [Left Arm] Pulse Oximetry 97 99 97 Oxygen Delivery Method Room Air Room Air Room Air Sepsis Recent Fever Within 48 Hours No Sepsis New/Unexplained Change in Mental Status N/A Sepsis Action Taken by Nursing No Action Required 06/21/22 14:32 06/21/22 12:00 Temperature Temperature Source Pulse Rate Pulse Rate [Apical] 56 L 62 Respiratory Rate 16 15 Respiratory Depth Blood Pressure Blood Pressure [Left Arm] 125/61 118/77 Blood Pressure Mean Blood Pressure Mean [Left Arm] 82 90 Pulse Oximetry 98 96 Oxygen Delivery Method Sepsis Recent Fever Within 48 Hours Sepsis New/Unexplained Change in Mental Status Sepsis Action Taken by Intermediate Medications Current Medication List: was personally reviewed by me Laboratory Data Attestation: I reviewed the patient's lab results. Result diagrams: 06/21/22 09:42 06/21/22 09:42 Lab Results 06/21/22 06/21/22 06/21/22 Range/Units 09:22 09:42 09:42 WBC 7.27 (4.8-10.8) K/ul RBC 4.50 (3.93-5.22) M/uL Hgb 14.8 (12.0-16.0) g/dl Hct 42.9 (34.1-44.9) % MCV 95.3 (80.0-100.0) fL MCH 32.9 (25.0-34.0) pg MCHC 34.5 (32.0-36.0) g/dL RDW Std Deviation 44.8 (36.4-46.3) fL RDW Coeff of Angle 12.8 (11.5-14.5) % Plt Count 226 (130-400) K/uL MPV 10.6 (9.4-12.3) fL Immature Gran % (Auto) 0.4 % Neut % (Auto) 73.5 % Lymph % (Auto) 12.5 % Guthrie % (Auto) 12.8 % Eos % (Auto) 0.1 % Baso % (Auto) 0.7 % Neut # (Auto) 5.34 (1.4-6.5) K/uL Lymph # (Auto) 0.91 L (1.2-3.4) K/uL Guthrie # (Auto) 0.93 H (0.24-0.82) K/uL Eos # (Auto) 0.01 (0-0.50) K/uL Baso # (Auto) 0.05 (0-0.2) K/uL Immature Gran # (Auto) 0.03 H (0.00-0.02) K/uL Sodium 139 (136-145) mmol/L Potassium 3.9 (3.5-5.1) mmol/L Chloride 108 H (98-107) mmol/L Carbon Dioxide 22 (21-32) mmol/L Anion Gap 9 (3-11) BUN 20 (6-23) mg/dl Creatinine 0.85 (0.6-1.2) mg/dl Est Cr Clr Drug Dosing 53.9 ml/min Est GFR ( Amer) 77.7 ml/min Est GFR (Non-Af Amer) 67.0 ml/min BUN/Creatinine Ratio 23.5 H (10-20) Glucose 108 H (70-99(Fasting)) mg/dl POC Glucose 100 H (70-99) mg/dl Calcium 9.8 (8.5-10.1) mg/dl Total Bilirubin 0.5 (0.2-1.0) mg/dl AST 24 (13-39) U/L ALT 9 (7-52) U/L Alkaline Phosphatase 87 (34-104) U/L Total Creatine Kinase 91 (26-192) U/L Troponin I High Sens 6.8 (0-14) pg/ml Total Protein 7.8 (6.0-8.3) gm/dl Albumin 4.6 (3.4-5.0) gm/dl Globulin 3.2 (2.5-4.0) gm/dl Albumin/Globulin Ratio 1.4 (0.9-2) Urine Color Urine Appearance (Clear) Urine pH (4.5-7.5) Ur Specific [employer] (1.000-1.030) Urine Protein (Negative) Urine Glucose (UA) (Negative) Urine Ketones (Negative) Urine Blood (Negative) Urine Nitrite (Negative) Urine Bilirubin (Negative) Urine Urobilinogen (Negative) Ur Leukocyte Esterase (Negative) Urine RBC (0-4) /hpf Urine WBC (0-5) /hpf Ur Epithelial Cells (0-5) /lpf Urine Bacteria (Negative) SARS-CoV-2, RNA, NAAT (NEGATIVE) 06/21/22 06/21/22 06/21/22 Range/Units 11:33 13:58 Unknown WBC (4.8-10.8) K/ul RBC (3.93-5.22) M/uL Hgb (12.0-16.0) g/dl Hct (34.1-44.9) % MCV (80.0-100.0) fL MCH (25.0-34.0) pg MCHC (32.0-36.0) g/dL RDW Std Deviation (36.4-46.3) fL RDW Coeff of Angel (11.5-14.5) % Plt Count (130-400) K/uL MPV (9.4-12.3) fL Immature Gran % (Auto) % Neut % (Auto) % Lymph % (Auto) % Guthrie % (Auto) % Eos % (Auto) % Baso % (Auto) % Neut # (Auto) (1.4-6.5) K/uL Lymph # (Auto) (1.2-3.4) K/uL Guthrie # (Auto) (0.24-0.82) K/uL Eos # (Auto) (0-0.50) K/uL Baso # (Auto) (0-0.2) K/uL Immature Gran # (Auto) (0.00-0.02) K/uL Sodium (136-145) mmol/L Potassium (3.5-5.1) mmol/L Chloride (98-107) mmol/L Carbon Dioxide (21-32) mmol/L Anion Gap (3-11) BUN (6-23) mg/dl Creatinine (0.6-1.2) mg/dl Est Cr Clr Drug Dosing ml/min Est GFR ( Amer) ml/min Est GFR (Non-Af Amer) ml/min BUN/Creatinine Ratio (10-20) Glucose (70-99(Fasting)) mg/dl POC Glucose 81 (70-99) mg/dl Calcium (8.5-10.1) mg/dl Total Bilirubin (0.2-1.0) mg/dl AST (13-39) U/L ALT (7-52) U/L Alkaline Phosphatase (34-104) U/L Total Creatine Kinase (26-192) U/L Troponin I High Sens 5.8 (0-14) pg/ml Total Protein (6.0-8.3) gm/dl Albumin (3.4-5.0) gm/dl Globulin (2.5-4.0) gm/dl Albumin/Globulin Ratio (0.9-2) Urine Color Yellow Urine Appearance Cloudy A (Clear) Urine pH 5.5 (4.5-7.5) Ur Specific [employer] >= 1.030 (1.000-1.030) Urine Protein 1+ H (Negative) Urine Glucose (UA) Negative (Negative) Urine Ketones Negative (Negative) Urine Blood 2+ H (Negative) Urine Nitrite Positive A (Negative) Urine Bilirubin Negative (Negative) Urine Urobilinogen Negative (Negative) Ur Leukocyte Esterase 1+ H (Negative) Urine RBC 5-10 H (0-4) /hpf Urine WBC 5-10 H (0-5) /hpf Ur Epithelial Cells >30 H (0-5) /lpf Urine Bacteria 3+ H (Negative) SARS-CoV-2, RNA, NAAT (NEGATIVE) 06/21/22 Range/Units Unknown WBC (4.8-10.8) K/ul RBC (3.93-5.22) M/uL Hgb (12.0-16.0) g/dl Hct (34.1-44.9) % MCV (80.0-100.0) fL MCH (25.0-34.0) pg MCHC (32.0-36.0) g/dL RDW Std Deviation (36.4-46.3) fL RDW Coeff of Angel (11.5-14.5) % Plt Count (130-400) K/uL MPV (9.4-12.3) fL Immature Gran % (Auto) % Neut % (Auto) % Lymph % (Auto) % [place]uthrie % (Auto) % Eos % (Auto) % Baso % (Auto) % Neut # (Auto) (1.4-6.5) K/uL Lymph # (Auto) (1.2-3.4) K/uL [place] # (Auto) (0.24-0.82) K/uL Eos # (Auto) (0-0.50) K/uL Baso # (Auto) (0-0.2) K/uL Immature Gran # (Auto) (0.00-0.02) K/uL Sodium (136-145) mmol/L Potassium (3.5-5.1) mmol/L Chloride (98-107) mmol/L Carbon Dioxide (21-32) mmol/L Anion Gap (3-11) BUN (6-23) mg/dl Creatinine (0.6-1.2) mg/dl Est Cr Clr Drug Dosing ml/min Est GFR ( Amer) ml/min Est GFR (Non-Af Amer) ml/min BUN/Creatinine Ratio (10-20) Glucose (70-99(Fasting)) mg/dl POC Glucose (70-99) mg/dl Calcium (8.5-10.1) mg/dl Total Bilirubin (0.2-1.0) mg/dl AST (13-39) U/L ALT (7-52) U/L Alkaline Phosphatase (34-104) U/L Total Creatine Kinase (26-192) U/L Troponin I High Sens (0-14) pg/ml Total Protein (6.0-8.3) gm/dl Albumin (3.4-5.0) gm/dl Globulin (2.5-4.0) gm/dl Albumin/Globulin Ratio (0.9-2) Urine Color Urine Appearance (Clear) Urine pH (4.5-7.5) Ur Specific [employer] (1.000-1.030) Urine Protein (Negative) Urine Glucose (UA) (Negative) Urine Ketones (Negative) Urine Blood (Negative) Urine Nitrite (Negative) Urine Bilirubin (Negative) Urine Urobilinogen (Negative) Ur Leukocyte Esterase (Negative) Urine RBC (0-4) /hpf Urine WBC (0-5) /hpf Ur Epithelial Cells (0-5) /lpf Urine Bacteria (Negative) SARS-CoV-2, RNA, NAAT POSITIVE A* (NEGATIVE) Administered Medications Discontinued Medications Sodium Chloride (Nss 1000ml) 1,000 mls @ 999 mls/hr IV .[id number] ROSALINDA Stop: 06/21/22 11:15 Last Infusion: 06/21/22 11:53 Dose: 0 mls/hr Documented By: Admin: 06/21/22 10:21 Dose: 999 mls/hr Documented By: KV Acetaminophen (Ofirmev) 1,000 mg in 100 mls @ 400 mls/hr IV NOW STA Stop: 06/21/22 10:19 Last Infusion: 06/21/22 10:47 Dose: 0 mls/hr Documented By: Admin: 06/21/22 10:22 Dose: 400 mls/hr Documented By: KV Levetiracetam 1,000 mg/ Sodium (Chloride) 110 mls @ 440 mls/hr IV NOW STA Stop: 06/21/22 10:22 Last Infusion: 06/21/22 10:22 Dose: 0 mls/hr Documented By: Admin: 06/21/22 10:21 Dose: 440 mls/hr Documented By: KV Ceftriaxone Sodium (Rocephin) 2,000 mg in 70 mls @ 140 mls/hr IV NOW STA Stop: 06/21/22 12:13 Last Infusion: 06/21/22 14:13 Dose: 0 mls/hr Documented By: Admin: 06/21/22 11:53 Dose: 140 mls/hr Documented By: KV Imaging Data Radiologist's Impression: Cervical Spine CT 06/21/22 10:06 CT SCAN OF THE CERVICAL SPINE CLINICAL HISTORY: Trauma. Fall. COMPARISON STUDY: CT of the cervical spine dated 09/20/2021 TECHNIQUE: CT scan of the cervical spine is performed from the skull base to the upper thoracic spine. Images are reviewed in the axial, sagittal, and coronal planes. IV contrast was not administered for this examination. A dose lowering technique was utilized adhering to the principles of ALARA. FINDINGS: Skeletal structures: The skeletal structures are osteopenic. There is no evidence of fracture or subluxation involving the cervical spine. Vertebral body height is maintained. There is minimal anterolisthesis at C3-C4. Alignment is otherwise preserved. There is straightening of the cervical lordosis with mild reversal centered at C4-C5. Anterior osteophytes are seen throughout. The odontoid process and lateral masses are intact. The atlantoaxial articulation is preserved noting productive degenerative change. The spinous processes appear intact. There is multilevel facet arthropathy. Intervertebral discs: There is moderate disc space narrowing at C5-C6 and C6-C7. Milder disc space narrowing is seen at the remaining cervical levels. Central canal: Posterior disc osteophyte complexes at C4-C5, C5-C6, and C6-C7 may contribute to mild acquired compromise of the central canal. Soft tissues: The prevertebral and paraspinous soft tissues are within normal limits. There is atherosclerotic calcification of the carotid bulbs. Calvarium: The visualized calvarium at the skull base appears intact. Brain parenchyma: Partially visualized brain parenchyma at the skull base is within normal limits. Sinuses and mastoids: The visualized paranasal sinuses are clear. The mastoid air cells are well pneumatized. Lung apices: Clear as visualized. IMPRESSION: 1. There is no evidence of fracture or subluxation involving the cervical spine. 2. Osteopenia and spondylotic change as above. ACT 112: Negative or not required by law. Electronically signed by: Erasmo Healy M.D. 06/21/2022 11:[address] 06/21/22 10:06 CT OF THE HEAD WITHOUT CONTRAST CLINICAL HISTORY: Trauma. COMPARISON STUDY: Head CT September 20, 2021 and MRI of the brain September 21, 2021. CT DOSE: 2234.14 mGy.cm TECHNIQUE: Helical axial images of the head were obtained without IV contrast. Automated exposure control was utilized for the study. A dose lowering technique was utilized adhering to the principles of ALARA. FINDINGS: No acute intracranial hemorrhage, midline shift or mass effect is present. The ventricular system is unremarkable. The basal cisterns are patent. No extra-axial collections are present. There are no findings to suggest acute dural sinus thrombosis or acute territorial infarct. A small right parietal scalp contusion is present. There is no acute calvarial fracture. IMPRESSION: 1. No acute intracranial findings. 2. Small right parietal scalp contusion. No calvarial fracture. ACT 112: Negative or not required by law. Electronically signed by: Jacobo Krishnan M.D. 06/21/2022 11:[address] 06/21/22 10:[address] DOSE: HISTORY: Fall. Back pain. Trauma TECHNIQUE: Multiaxial CT images of the lumbar spine were performed and reformatted in the sagittal and coronal plane without the use of contrast. A dose lowering technique was utilized adhering to the principles of ALARA. COMPARISON: None. FINDINGS: No fractures. No subluxation. Mild to moderate disc space narrowing at L4-L5. L5-S1 vertebral bodies are partially fused with partial sacralization of the L5 transverse process. The visualized sacrum is intact. No high-grade central canal stenosis by CT technique. Paravertebral soft tissues are unremarkable. An 8 mm calcification within the right kidney. This could represent renal stones or a cortical calcification IMPRESSION: No fractures within the lumbar spine. ACT 112: Negative or not required by law. Electronically signed by: Collins Cross M.D. 06/21/2022 11:[address] 06/21/22 10:06 CT SCAN OF THE THORACIC SPINE WITHOUT IV CONTRAST CLINICAL HISTORY: Fall. Thoracic back pain. COMPARISON STUDY: Chest CT dated 05/24/2008. Thoracic spine radiographs dated 07/20/2016. TECHNIQUE: CT scan of the thoracic spine is performed from the lower cervical spine to the upper lumbar spine. Images are reviewed in the axial, sagittal, and coronal planes. IV contrast was not administered for this examination. A dose lowering technique was utilized adhering to the principles of ALARA. FINDINGS: The skeletal structures are osteopenic. There is no evidence of fracture or malalignment involving the thoracic spine. Vertebral body height and alignment are maintained. The transverse and spinous processes are intact. Hyperkyphosis is observed. Anterior osteophytes are seen throughout. No lytic or blastic lesion is seen. There is mild multilevel degenerative disc space narrowing. The paraspinous soft tissues are normal as imaged. The visualized posterior ribs are intact. Foci of parenchymal scarring are seen throughout both lungs and there is dependent atelectasis. No airspace consolidation or pleural effusion is seen. There is no evidence of pneumothorax. The heart is enlarged. Aneurysmal dilatation of the ascending thoracic aorta is partially visualized. This measures up to 4.3 cm in diameter. The liver appears to be steatotic. A small hiatal hernia is noted. IMPRESSION: 1. There is no evidence of fracture or malalignment involving the thoracic spi ne. 2. Osteopenia with degenerative change and hyperkyphosis as above. 3. There is mild aneurysmal dilatation of the ascending thoracic aorta which measures up to 4.3 cm. ACT 112: Negative or not required by law. Dictated: 06/21/2022 11:21 AM Transcribed: 06/21/2022 11:34 AM [place] [id number] [facility] Electronically signed by: Erasmo Healy M.D. 06/21/2022 11:45 AM Chest X-Ray 06/21/22 10:25 SINGLE VIEW CHEST CLINICAL HISTORY: Fall. FINDINGS: An AP, portable, upright chest radiograph is compared to study dated 09/20/2021. The heart is enlarged including atherosclerotic calcification of the thoracic aorta. The pulmonary vasculature is noncongested. Chronic interstitial thickening similar to previous. There is mild bibasilar scarring/atelectasis. The lungs and pleural spaces are otherwise clear. No pneumothorax is seen. The skeletal structures are osteopenic. The bony thorax is grossly intact. IMPRESSION: No active disease in the chest. ACT 112: Negative or not required by law. Electronically signed by: Erasmo Healy M.D. 06/21/2022 12:32 PM Hip/Pelvis X-Ray 06/21/22 10:25 XR hips STEPHEN 1v w pelvis CLINICAL HISTORY: fall, pain COMPARISON: CT of the abdomen and pelvis September 29, 2006. FINDINGS: Sacroiliac joints and symphysis pubis are intact. No acute fracture within the pelvis or hips. There is mild bilateral hip osteoarthritis. Degenerative changes at the symphysis pubis are present. IMPRESSION: No acute fracture within the pelvis or hips. ACT 112: Negative or not required by law. Electronically signed by: Jacobo Krishnan M.D. 06/21/2022 12:54 PM Scapula X-Ray 06/21/22 10:25 RIGHT SHOULDER 2 VIEWS; RIGHT SCAPULA 2 VIEWS CLINICAL HISTORY: Fall. Right shoulder and scapular pain. FINDINGS: 2 views of the right shoulder and 2 views of the right scapula are obtained. No prior studies are available for comparison at the time of dictation. The skeletal structures are osteopenic. There is no radiographic evidence of right shoulder fracture or dislocation. There is no radiographic evidence of right scapular fracture. Degenerative change is noted at the glenohumeral and acromioclavicular joints. The overlying soft tissues are within normal limits. The visualized right upper lung parenchyma appears clear. IMPRESSION: 1. There is no radiographic evidence of right shoulder fracture or dislocation. 2. There is no radiographic evidence of right scapular fracture. Electronically signed by: Erasmo Healy M.D. 06/21/2022 12:44 PM Shoulder X-Ray 06/21/22 10:25 RIGHT SHOULDER 2 VIEWS; RIGHT SCAPULA 2 VIEWS CLINICAL HISTORY: Fall. Right shoulder and scapular pain. FINDINGS: 2 views of the right shoulder and 2 views of the right scapula are obtained. No prior studies are available for comparison at the time of dictation. The skeletal structures are osteopenic. There is no radiographic evidence of right shoulder fracture or dislocation. There is no radiographic evidence of right scapular fracture. Degenerative change is noted at the glenohumeral and acromioclavicular joints. The overlying soft tissues are within normal limits. The visualized right upper lung parenchyma appears clear. IMPRESSION: 1. There is no radiographic evidence of right shoulder fracture or dislocation. 2. There is no radiographic evidence of right scapular fracture. Electronically signed by: Erasmo Healy M.D. 06/21/2022 12:44 PM Discharge Plan Visit Data Chief Complaint: Fall Stated Complaint: POSSIBLE FALL ED Provider: Royce Melton Discharge Problem: Acute dehydration, Frequent falls, Seizure disorder, Acute UTI, COVID-19, Aneurysm of thoracic aorta Patient Disposition: Admitted As Inpatient Forms Stand Alone Forms: [facility] Prescriptions Prescriptions: No Action levetiracetam 500 mg Tablet 1,000 mg PO BID Qty: 0 valacyclovir 500 mg Tablet 500 mg PO DAILY Qty: 0 lacosamide [Vimpat] 200 mg Tablet 200 mg PO BID Qty: 0 topiramate 50 mg Tablet 50 mg PO HS Qty: 0 donepezil 5 mg tablet 5 mg PO QAM acetaminophen 500 mg Tablet 500 mg PO Q6H PRN (Reason: Pain) paroxetine HCl 20 mg tablet 20 mg PO DAILY hydroxyzine pamoate 25 mg capsule 25 mg PO BID PRN (Reason: allergies) propranolol 10 mg Tablet 10 mg PO BID Qty: 20 0RF carbidopa-levodopa [Sinemet] 25-100 mg Tablet 1 tab PO TID Qty: 15 0RF ergocalciferol (vitamin D2) 1,250 mcg (50,000 unit) capsule 50,000 unit PO WK Referrals Referrals: Ciro Chong PA-C [Primary Care Provider] -
[2022-06-21] MEDS ORDERED: ACETAMINOPHEN 1,000 MG/100 ML VIAL IV STA (10:05)
[2022-06-21] MEDS ORDERED: levETIRAcetam 1,000 MG in 0.9 % SODIUM CHLORIDE 100 ML IV STA (10:08)
[2022-06-21] MEDS ORDERED: SODIUM CHLORIDE 0.9% 1000ML 1,000 ML IV SCH (10:15)
[2022-06-21 10:25] LABS: Basophils # (auto) 0.05 K/uL (0-0.2); Basophils % (auto) 0.7 %; Eosinophils # (auto) 0.01 K/uL (0-0.50); Eosinophils % (auto) 0.1 %; Hematocrit (blood only) 42.9 % (34.1-44.9); Hemoglobin 14.8 g/dl (12.0-16.0); Immature Granulocytes # (auto) 0.03 K/uL (0.00-0.02); Immature Granulocytes % (auto) 0.4 %; Lymphocytes # (auto) 0.91 K/uL (1.2-3.4); Lymphocytes % (auto) 12.5 %; Mean Corpuscular Hemoglobin 32.9 pg (25.0-34.0); Mean Corpuscular Hgb Conc 34.5 g/dL (32.0-36.0); Mean Corpuscular Volume 95.3 fL (80.0-100.0); Mean Platelet Volume 10.6 fL (9.4-12.3); Monocytes # (auto) 0.93 K/uL (0.24-0.82); Monocytes % (auto) 12.8 %; Neutrophils # (auto) 5.34 K/uL (1.4-6.5); Neutrophils % (auto) 73.5 %; Platelet Count 226 K/uL (130-400); RDW Coefficient of Variation 12.8 % (11.5-14.5); RDW Standard Deviation 44.8 fL (36.4-46.3); White Blood Count 7.27 K/ul (4.8-10.8)
[2022-06-21 10:30] LABS: Appearance Urine Cloudy (Clear); Bilirubin Urine Negative (Negative); Blood Urine 2+ (Negative); Color Urine Yellow; Glucose Urine UA Negative (Negative); Ketones Urine Negative (Negative); Leukocyte Esterase Urine 1+ (Negative); Nitrite Urine Positive (Negative); Protein Urine 1+ (Negative); Specific Gravity Urine >= 1.030 (1.000-1.030); Urobilinogen Urine Negative (Negative); pH Urine 5.5 (4.5-7.5)
[2022-06-21 10:43] LABS: Troponin I High Sensitivity 6.8 pg/ml (0-14)
[2022-06-21 10:48] LABS: Bacteria Urine 3+ (Negative); Epithelial Cell Urine >30 /lpf (0-5)
[2022-06-21 10:50] LABS: Albumin Globulin Ratio 1.4 (0.9-2); Albumin Level 4.6 gm/dl (3.4-5.0); BUN Creatinine Ratio 23.5 (10-20); Bilirubin,Total 0.5 mg/dl (0.2-1.0); Calcium 9.8 mg/dl (8.5-10.1); Creatinine Clr Calc Pharmacy 53.9 ml/min; Est GFR (African American) 77.7 ml/min; Globulin 3.2 gm/dl (2.5-4.0); Potassium 3.9 mmol/L (3.5-5.1); Total Protein 7.8 gm/dl (6.0-8.3)
--- NOTE | 2022-06-21 11:14 | CT Scan Report ---
CT SCAN OF THE CERVICAL SPINE CLINICAL HISTORY: Trauma. Fall. COMPARISON STUDY: CT of the cervical spine dated 09/20/2021 TECHNIQUE: CT scan of the cervical spine is performed from the skull base to the upper thoracic spine . Images are reviewed in the axial, sagittal, and coronal planes. IV contrast was not administered fo r this examination. A dose lowering technique was utilized adhering to the principles of ALARA. FINDINGS: Skeletal structures: The skeletal structures are osteopenic. There is no evidence of fracture or subl uxation involving the cervical spine. Vertebral body height is maintained. There is minimal anterolis thesis at C3-C4. Alignment is otherwise preserved. There is straightening of the cervical lordosis wi th mild reversal centered at C4-C5. Anterior osteophytes are seen throughout. The odontoid process an d lateral masses are intact. The atlantoaxial articulation is preserved noting productive degenerativ e change. The spinous processes appear intact. There is multilevel facet arthropathy. Intervertebral discs: There is moderate disc space narrowing at C5-C6 and C6-C7. Milder disc space na rrowing is seen at the remaining cervical levels. Central canal: Posterior disc osteophyte complexes at C4-C5, C5-C6, and C6-C7 may contribute to mild acquired compromise of the central canal. Soft tissues: The prevertebral and paraspinous soft tissues are within normal limits. There is athero sclerotic calcification of the carotid bulbs. Calvarium: The visualized calvarium at the skull base appears intact. Brain parenchyma: Partially visualized brain parenchyma at the skull base is within normal limits. Sinuses and mastoids: The visualized paranasal sinuses are clear. The mastoid air cells are well pneu matized. Lung apices: Clear as visualized. IMPRESSION: 1. There is no evidence of fracture or subluxation involving the cervical spine. 2. Osteopenia and spondylotic change as above. ACT 112: Negative or not required by law. Electronically signed by: Erasmo Healy M.D. 06/21/2022 11:13 AM
--- NOTE | 2022-06-21 11:16 | CT Scan Report ---
LUMBAR SPINE CT CT DOSE: HISTORY: Fall. Back pain. Trauma TECHNIQUE: Multiaxial CT images of the lumbar spine were performed and reformatted in the sagittal an d coronal plane without the use of contrast. A dose lowering technique was utilized adhering to the principles of ALARA. COMPARISON: None. FINDINGS: No fractures. No subluxation. Mild to moderate disc space narrowing at L4-L5. L5-S1 vertebr al bodies are partially fused with partial sacralization of the L5 transverse process. The visualized sacrum is intact. No high-grade central canal stenosis by CT technique. Paravertebral soft tissues a re unremarkable. An 8 mm calcification within the right kidney. This could represent renal stones or a cortical calcification IMPRESSION: No fractures within the lumbar spine. ACT 112: Negative or not required by law. Electronically signed by: Collins Cross M.D. 06/21/2022 11:15 AM
--- NOTE | 2022-06-21 11:17 | CT Scan Report ---
CT OF THE HEAD WITHOUT CONTRAST CLINICAL HISTORY: Trauma. COMPARISON STUDY: Head CT September 20, 2021 and MRI of the brain September 21, 2021. CT DOSE: 2234.14 mGy.cm TECHNIQUE: Helical axial images of the head were obtained without IV contrast. Automated exposure con trol was utilized for the study. A dose lowering technique was utilized adhering to the principles o f ALARA. FINDINGS: No acute intracranial hemorrhage, midline shift or mass effect is present. The ventricular system is unremarkable. The basal cisterns are patent. No extra-axial collections are present. There are no findings to suggest acute dural sinus thrombosis or acute territorial infarct. A small right p arietal scalp contusion is present. There is no acute calvarial fracture. IMPRESSION: 1. No acute intracranial findings. 2. Small right parietal scalp contusion. No calvarial fracture. ACT 112: Negative or not required by law. Electronically signed by: Jacobo Krishnan M.D. 06/21/2022 11:16 AM
[2022-06-21] MEDS ORDERED: cefTRIAXone SODIUM 2,000 MG/70 ML BAG IV STA (11:44)
--- NOTE | 2022-06-21 11:48 | CT Scan Report ---
CT SCAN OF THE THORACIC SPINE WITHOUT IV CONTRAST CLINICAL HISTORY: Fall. Thoracic back pain. COMPARISON STUDY: Chest CT dated 05/24/2008. Thoracic spine radiographs dated 07/20/2016. TECHNIQUE: CT scan of the thoracic spine is performed from the lower cervical spine to the upper lumb ar spine. Images are reviewed in the axial, sagittal, and coronal planes. IV contrast was not adminis tered for this examination. A dose lowering technique was utilized adhering to the principles of MAIKEL Shell. FINDINGS: The skeletal structures are osteopenic. There is no evidence of fracture or malalignment in volving the thoracic spine. Vertebral body height and alignment are maintained. The transverse and sp inous processes are intact. Hyperkyphosis is observed. Anterior osteophytes are seen throughout. No l ytic or blastic lesion is seen. There is mild multilevel degenerative disc space narrowing. The leighton pinous soft tissues are normal as imaged. The visualized posterior ribs are intact. Foci of parenchym al scarring are seen throughout both lungs and there is dependent atelectasis. No airspace consolidat ion or pleural effusion is seen. There is no evidence of pneumothorax. The heart is enlarged. Aneurys mal dilatation of the ascending thoracic aorta is partially visualized. This measures up to 4.3 cm in diameter. The liver appears to be steatotic. A small hiatal hernia is noted. IMPRESSION: 1. There is no evidence of fracture or malalignment involving the thoracic spine. 2. Osteopenia with degenerative change and hyperkyphosis as above. 3. There is mild aneurysmal dilatation of the ascending thoracic aorta which measures up to 4.3 cm. ACT 112: Negative or not required by law. Dictated: 06/21/2022 11:21 AM Transcribed: 06/21/2022 11:34 AM Mary Jane [id number] MARITO_Shante Electronically signed by: Erasmo Healy M.D. 06/21/2022 11:45 AM
--- NOTE | 2022-06-21 12:33 | XRay Report ---
SINGLE VIEW CHEST CLINICAL HISTORY: Fall. FINDINGS: An AP, portable, upright chest radiograph is compared to study dated 09/20/2021. The heart i s enlarged including atherosclerotic calcification of the thoracic aorta. The pulmonary vasculature i s noncongested. Chronic interstitial thickening similar to previous. There is mild bibasilar scarring /atelectasis. The lungs and pleural spaces are otherwise clear. No pneumothorax is seen. The skeletal structures are osteopenic. The bony thorax is grossly intact. IMPRESSION: No active disease in the chest. ACT 112: Negative or not required by law. Electronically signed by: Erasmo Healy M.D. 06/21/2022 12:32 PM
--- NOTE | 2022-06-21 12:46 | XRay Report ---
RIGHT SHOULDER 2 VIEWS; RIGHT SCAPULA 2 VIEWS CLINICAL HISTORY: Fall. Right shoulder and scapular pain. FINDINGS: 2 views of the right shoulder and 2 views of the right scapula are obtained. No prior studi es are available for comparison at the time of dictation. The skeletal structures are osteopenic. The re is no radiographic evidence of right shoulder fracture or dislocation. There is no radiographic ev idence of right scapular fracture. Degenerative change is noted at the glenohumeral and acromioclavic ular joints. The overlying soft tissues are within normal limits. The visualized right upper lung par enchyma appears clear. IMPRESSION: 1. There is no radiographic evidence of right shoulder fracture or dislocation. 2. There is no radiographic evidence of right scapular fracture. Electronically signed by: Erasmo Healy M.D. 06/21/2022 12:44 PM
--- NOTE | 2022-06-21 12:55 | XRay Report ---
XR hips STEPHEN 1v w pelvis CLINICAL HISTORY: fall, pain COMPARISON: CT of the abdomen and pelvis September 29, 2006. FINDINGS: Sacroiliac joints and symphysis pubis are intact. No acute fracture within the pelvis or h ips. There is mild bilateral hip osteoarthritis. Degenerative changes at the symphysis pubis are pres ent. IMPRESSION: No acute fracture within the pelvis or hips. ACT 112: Negative or not required by law. Electronically signed by: Jacobo Krishnan M.D. 06/21/2022 12:54 PM
--- NOTE | 2022-06-21 14:03 | History & Physical Report ---
Date of Service June 21, 2022 Assessment & Plan (1) Unresponsive episode: Plan: Suspected seizure (given rapid recovery) in setting of UTI - no acute adjustments to home meds recommended. Consult neurology - will defer further workup for seizures given previously known and generally well controlled Monitor for arrhythmias on telemetry CK level WNL PT/OT (2) Seizure disorder: Plan: Continue her usual anti-seizure mediations with Vimpat, Keppra and Topamax (3) Acute UTI: Plan: Symptoms of urinary frequency and suprapubic pain Urine culture taken on admission although not the best sample given her symptoms will avoid straight cath sample and treat with antibiotics No CVA tenderness on exam Ceftriaxone 1g IV daily (4) SARS-CoV-2 positive: Plan: Unclear is false positive, asymptomatic COVID or presymptomatic COVID Consider retesting if patient stays Irregardless she doesn't need treatment but will be on isolation precautions for COVID-19 initially (5) Aneurysm of thoracic aorta: Plan: Follow up with vascular as outpatient (6) Vitamin B12 deficiency: Plan: Recheck B12, reportedly on supplementation for this but not listed, diagnosed last admission (7) Benign essential tremor: Plan: Continue her usual dose of propranolol (8) Parkinsonian features: Plan: Continue her usual Sinemet dosing (9) Dementia: Plan: Continue donepezil 5mg PO daily Plan VTE Prophylaxis - chemical deferred due to scalp contusion Diet - regular Disposition - observation status to med/tele Admission and Anticipated Discharge Date Admission Date: June 22, 2022 History of Present Illness Chief Complaint: Unresponsive episode Primary Care Provider: Ciro Chong PA-C Kayli Kurtz is a 77 year old female who presents to the ER due to being found on the ground in her bedroom by her neighbor. She reports pain in right shoulder and back after the fall. Episode of stool incontinence while on the ground. She last remembers watching TV in bed around 10pm last night. The next thing she remembers is being on the floor with her neighbor coming in screaming this morning. Her neighbor has a brown and usual comes by take out the dog every morning around 7am. In the ER she currently feels back to her normal self but cannot work out why she was on the floor. No current confusion and she reportedly felt her normal self yesterday. However on further questioning she does note increased urinary frequency getting progressively worse over the last month. In the ER she tested positive for SARS-COV-2 on routine testing however she denies any chest pain, shortness of breath, cough, sore throat, diarrhea, nasal congestion, loss of taste or smell. Allergies Allergy/AdvReac Type Severity Reaction Status Date / Time Iodinated Contrast Media Allergy Intermediate Hives Verified 09/25/21 20:09 iodine Allergy Mild HIVES Verified 09/20/21 13:32 morphine Allergy Unknown Unknown Verified 09/25/21 20:09 simvastatin Allergy Unknown Unknown Verified 09/25/21 20:09 prednisone AdvReac Mild GI UPSET Verified 09/20/21 13:32 Home Medications Medication Instructions Recorded Confirmed Type lacosamide 200 mg tablet (Vimpat) 200 mg PO BID ##0 11/29/12 06/21/22 History levetiracetam 500 mg tablet 1,000 mg PO BID #0 tabs 11/29/12 06/21/22 History valacyclovir 500 mg tablet 500 mg PO DAILY #0 tabs 11/29/12 06/21/22 History topiramate 50 mg tablet 50 mg PO HS #0 tabs 07/20/16 06/21/22 History acetaminophen 500 mg tablet 500 mg PO Q6H PRN Pain 09/20/21 06/21/22 History donepezil 5 mg tablet 5 mg PO QAM 09/20/21 06/21/22 History hydroxyzine pamoate 25 mg capsule 25 mg PO BID PRN allergies 09/20/21 06/21/22 History paroxetine HCl 20 mg tablet 20 mg PO DAILY 09/20/21 06/21/22 History carbidopa 25 mg-levodopa 100 mg 1 tab PO TID #15 tabs 09/26/21 06/21/22 Rx tablet (Sinemet) propranolol 10 mg tablet 10 mg PO BID #20 tabs 09/26/21 06/21/22 Rx ergocalciferol (vitamin D2) 1,250 50,000 unit PO WK 06/21/22 06/21/22 History mcg (50,000 unit) capsule 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 [employer] Family History Other No pertinent family history Social History Smoking Status: Never smoker Second Hand Exposure: No; Hx Alcohol Use: Yes Alcohol type: hard liquor Alcohol Intake Frequency: Monthly or Less Hx Substance Use: No Preferred Language: Fijian Communication Ability: Effective Hearing Ability: Normal Spa Therapist Required: No Beliefs That Will Affect Care: Oriental Orthodox marital status: Current Living Situation: Alone Current Living Situation Comment: correction current occupational status: retired Feels Safe at Home: Yes Safety Concerns: Feels Safe At This Time Assistive Devices: Denture - Upper, Denture - Lower, Glasses and Walker Review of Systems Review of Systems: All systems reviewed & are unremarkable except as noted in HPI & below Physical Exam Constitutional: WD/WN, vitals as above Eyes: PERRL, conjunctivae normal, anicteric sclerae Respiratory: normal respiratory effort, lungs clear to auscultation Cardiovascular: RRR, no murmur, no edema Gastrointestinal (Abdomen): Inspection/Auscultation: abdomen normal to inspection; abdomen not distended Percussion/Palpation: + abdomen tender (suprapubic) and abdomen soft; no guarding and abdomen not rigid Musculoskeletal: no cyanosis or clubbing, extremities motor strength 5/5 Skin: no rashes, warm and dry Neurologic: moves all extremities and awake; no focal motor deficits and not confused Speech / Cognition: normal speech Motor/Sensory: + tremor (action R > L, mild); no pronator drift Cranial Nerves: PERRL, EOM intact bilaterally, normal facial strength, tongue midline, able to rotate head bilaterally, able to elevate shoulders bilaterally and no nystagmus Psychiatric: A+Ox3, euthymic affect Results & Data Results & Data ([facility]) Vital Signs (Past 12 Hours) Vital Signs Temp Pulse Pulse Resp BP Pulse Ox O2 Del Method 06/21/22 11:34 57 L 16 97 Room Air 06/21/22 09:13 63 15 99 Room Air 06/21/22 09:09 36.7 C 63 15 150/74 H 97 Room Air Diagnostic Findings CT OF THE HEAD WITHOUT CONTRAST CLINICAL HISTORY: Trauma. COMPARISON STUDY: Head CT September 20, 2021 and MRI of the brain September 21, 2021. CT DOSE: 2234.14 mGy.cm TECHNIQUE: Helical axial images of the head were obtained without IV contrast. Automated exposure control was utilized for the study. A dose lowering technique was utilized adhering to the principles of ALARA. FINDINGS: No acute intracranial hemorrhage, midline shift or mass effect is p resent. The ventricular system is unremarkable. The basal cisterns are patent. No extra-axial collections are present. There are no findings to suggest acute dural sinus thrombosis or acute territorial infarct. A small right parietal scalp contusion is present. There is no acute calvarial fracture. IMPRESSION: 1. No acute intracranial findings. 2. Small right parietal scalp contusion. No calvarial fracture. CT SCAN OF THE CERVICAL SPINE CLINICAL HISTORY: Trauma. Fall. COMPARISON STUDY: CT of the cervical spine dated 09/20/2021 TECHNIQUE: CT scan of the cervical spine is performed from the skull base to the upper thoracic spine. Images are reviewed in the axial, sagittal, and coronal planes. IV contrast was not administered for this examination. A dose lowering technique was utilized adhering to the principles of ALARA. FINDINGS: Skeletal structures: The skeletal structures are osteopenic. There is no evidence of fracture or subluxation involving the cervical spine. Vertebral body height is maintained. There is minimal anterolisthesis at C3-C4. Alignment is otherwise preserved. There is straightening of the cervical lordosis with mild reversal centered at C4-C5. Anterior osteophytes are seen throughout. The odontoid process and lateral masses are intact. The atlantoaxial articulation is preserved noting productive degenerative change. The spinous processes appear intact. There is multilevel facet arthropathy. Intervertebral discs: There is moderate disc space narrowing at C5-C6 and C6-C7. Milder disc space narrowing is seen at the remaining cervical levels. Central canal: Posterior disc osteophyte complexes at C4-C5, C5-C6, and C6-C7 may contribute to mild acquired compromise of the central canal. Soft tissues: The prevertebral and paraspinous soft tissues are within normal limits. There is atherosclerotic calcification of the carotid bulbs. Calvarium: The visualized calvarium at the skull base appears intact. Brain parenchyma: Partially visualized brain parenchyma at the skull base is within normal limits. Sinuses and mastoids: The visualized paranasal sinuses are clear. The mastoid air cells are well pneumatized. Lung apices: Clear as visualized. IMPRESSION: 1. There is no evidence of fracture or subluxation involving the cervical spine. 2. Osteopenia and spondylotic change as above. CT SCAN OF THE THORACIC SPINE WITHOUT IV CONTRAST CLINICAL HISTORY: Fall. Thoracic back pain. COMPARISON STUDY: Chest CT dated 05/24/2008. Thoracic spine radiographs dated 07/20/2016. TECHNIQUE: CT scan of the thoracic spine is performed from the lower cervical spine to the upper lumbar spine. Images are reviewed in the axial, sagittal, and coronal planes. IV contrast was not administered for this examination. A dose lowering technique was utilized adhering to the principles of ALARA. FINDINGS: The skeletal structures are osteopenic. There is no evidence of fracture or malalignment involving the thoracic spine. Vertebral body height and alignment are maintained. The transverse and spinous processes are intact. Hyperkyphosis is observed. Anterior osteophytes are seen throughout. No lytic or blastic lesion is seen. There is mild multilevel degenerative disc space narrowing. The paraspinous soft tissues are normal as imaged. The visualized posterior ribs are intact. Foci of parenchymal scarring are seen throughout both lungs and there is dependent atelectasis. No airspace consolidation or pleural effusion is seen. There is no evidence of pneumothorax. The heart is enlarged. Aneurysmal dilatation of the ascending thoracic aorta is partially visualized. This measures up to 4.3 cm in diameter. The liver appears to be steatotic. A small hiatal hernia is noted. IMPRESSION: 1. There is no evidence of fracture or malalignment involving the thoracic spine. 2. Osteopenia with degenerative change and hyperkyphosis as above. 3. There is mild aneurysmal dilatation of the ascending thoracic aorta which measures up to 4.[address] DOSE: HISTORY: Fall. Back pain. Trauma TECHNIQUE: Multiaxial CT images of the lumbar spine were performed and reformatted in the sagittal and coronal plane without the use of contrast. A dose lowering technique was utilized adhering to the principles of ALARA. COMPARISON: None. FINDINGS: No fractures. No subluxation. Mild to moderate disc space narrowing at L4-L5. L5-S1 vertebral bodies are partially fused with partial sacralization of the L5 transverse process. The visualized sacrum is intact. No high-grade central canal stenosis by CT technique. Paravertebral soft tissues are unremarkable. An 8 mm calcification within the right kidney. This could represent renal stones or a cortical calcification IMPRESSION: No fractures within the lumbar spine. SINGLE VIEW CHEST CLINICAL HISTORY: Fall. FINDINGS: An AP, portable, upright chest radiograph is compared to study dated 09/20/2021. The heart is enlarged including atherosclerotic calcification of the thoracic aorta. The pulmonary vasculature is noncongested. Chronic interstitial thickening similar to previous. There is mild bibasilar scarring/atelectasis. The lungs and pleural spaces are otherwise clear. No pneumothorax is seen. The skeletal structures are osteopenic. The bony thorax is grossly intact. IMPRESSION: No active disease in the chest. XR hips STEPHEN 1v w pelvis CLINICAL HISTORY: fall, pain COMPARISON: CT of the abdomen and pelvis September 29, 2006. FINDINGS: Sacroiliac joints and symphysis pubis are intact. No acute fracture within the pelvis or hips. There is mild bilateral hip osteoarthritis. Degenerative changes at the symphysis pubis are present. IMPRESSION: No acute fracture within the pelvis or hips. RIGHT SHOULDER 2 VIEWS; RIGHT SCAPULA 2 VIEWS CLINICAL HISTORY: Fall. Right shoulder and scapular pain. FINDINGS: 2 views of the right shoulder and 2 views of the right scapula are obtained. No prior studies are available for comparison at the time of dictation. The skeletal structures are osteopenic. There is no radiographic evidence of right shoulder fracture or dislocation. There is no radiographic evidence of right scapular fracture. Degenerative change is noted at the glenohumeral and acromioclavicular joints. The overlying soft tissues are within normal limits. The visualized right upper lung parenchyma appears clear. IMPRESSION: 1. There is no radiographic evidence of right shoulder fracture or dislocation. 2. There is no radiographic evidence of right scapular fracture. Medications Administered ER Medications Given: NSS 1L bolus Acetaminophen 1000mg IV Keppra 1000mg IV Ceftriaxone 2g IV ECG Indication: other Rate (beats per minute): 62 Rhythm: normal sinus Findings: + nonspecific-ST abn Comparison ECG Date: from (September 24, 2021) Change: the following changes noted (RSR pattern no longer present) Code Status & VTE Plan Code Status Full PG Care Time/CCT Total # of Minutes Spent Total Time Spent with Patient: Total time spent is greater than 50% in coordination of care (as documented) at patient's floor/unit and/or counseling patient: Coding Level of Care Code INT OBSERVATION CARE 70M LVL 3 Diagnoses Unresponsive episode R41.89 Seizure disorder G40.909 Acute UTI N39.0 SARS-CoV-2 positive U07.1 Aneurysm of thoracic aorta I71.21 Presence of rupture: without rupture Thoracic aorta location: ascending aorta Vitamin B12 deficiency E53.8 Benign essential tremor G25.0 Parkinsonian features R25.9 Dementia F03.90 (1) Aneurysm of thoracic aorta Presence of rupture: without rupture Thoracic aorta location: ascending aorta Qualified Code(s): I71.21 - Aneurysm of the ascending aorta, without rupture
[2022-06-21] MEDS ORDERED: LACOSAMIDE 50 MG TABLET PO STA (14:35)
[2022-06-21] MEDS ORDERED: hydrOXYzine HCl 25 MG TAB PO PRN (15:59)
[2022-06-21] MEDS: CARBIDOPA/LEVODOPA 25/100MG TAB PO SCH ×2 (17:48→19:46)
[2022-06-21] MEDS: PROPRANOLOL HCL 10 MG TAB PO SCH (19:46)
[2022-06-21] MEDS: TOPIRAMATE 50 MG TAB PO SCH (19:46)
[2022-06-21] MEDS: levETIRAcetam 500 MG TAB PO SCH (19:48)
[2022-06-21] MEDS: LACOSAMIDE 50 MG TABLET PO SCH (20:26)
[2022-06-22] MEDS: ACETAMINOPHEN 325 MG TAB PO PRN ×2 (04:43→21:59)
[2022-06-22] MEDS: CARBIDOPA/LEVODOPA 25/100MG TAB PO SCH ×3 (08:04→21:42)
[2022-06-22] MEDS: levETIRAcetam 500 MG TAB PO SCH ×2 (08:04→21:44)
[2022-06-22] MEDS: PROPRANOLOL HCL 10 MG TAB PO SCH ×2 (08:04→21:43)
[2022-06-22] MEDS: DONEPEZIL HCL 5 MG TAB PO SCH (08:05)
[2022-06-22] MEDS: PARoxetine HCL 20 MG TAB PO SCH (08:05)
[2022-06-22] MEDS: valACYclovir HCL 500 MG TABLET PO SCH (08:05)
[2022-06-22 08:08] LABS: Basophils # (auto) 0.03 K/uL (0-0.2); Basophils % (auto) 0.5 %; Eosinophils # (auto) 0.01 K/uL (0-0.50); Eosinophils % (auto) 0.2 %; Hematocrit (blood only) 40.2 % (34.1-44.9); Hemoglobin 13.6 g/dl (12.0-16.0); Immature Granulocytes # (auto) 0.01 K/uL (0.00-0.02); Immature Granulocytes % (auto) 0.2 %; Lymphocytes # (auto) 1.21 K/uL (1.2-3.4); Mean Corpuscular Hemoglobin 32.5 pg (25.0-34.0); Mean Corpuscular Hgb Conc 33.8 g/dL (32.0-36.0); Mean Corpuscular Volume 96.2 fL (80.0-100.0); Mean Platelet Volume 11.4 fL (9.4-12.3); Monocytes # (auto) 1.05 K/uL (0.24-0.82); Monocytes % (auto) 19.1 %; Platelet Count 177 K/uL (130-400); RDW Coefficient of Variation 12.8 % (11.5-14.5); RDW Standard Deviation 45.5 fL (36.4-46.3); Red Blood Count 4.18 M/uL (3.93-5.22); White Blood Count 5.51 K/ul (4.8-10.8)
[2022-06-22 08:27] LABS: BUN Creatinine Ratio 21.8 (10-20); Calcium 8.5 mg/dl (8.5-10.1); Creatinine Clr Calc Pharmacy 50.3 ml/min; Est GFR (African American) 75.5 ml/min; Est GFR (Non-African American) 65.2 ml/min; Potassium 3.4 mmol/L (3.5-5.1)
[2022-06-22] MEDS: LACOSAMIDE 50 MG TABLET PO SCH ×2 (08:28→21:42)
--- NOTE | 2022-06-22 10:24 | Neurology Consultation ---
Date of Consultation June 22, 2022 Assessment & Plan (1) Seizure: Plan NEUROLOGY CONSULTATION Assessment & Plan: Impression: pt with seizure breakthrough likely in setting of UI. currently doing well and no symptoms. Recommendations: -continue same AEDs treat UTI covid tx/testing as planned. no need for further seizure work up or testing at this point. pt can follow up with [place] [facility] as before. not much to add. call again if new question. Dr. Pedro Cain MD [facility] Neurology Chief Complaint: History of Present Illness: HPI: pt this morning feeling well. no sign of seizures. pt wanting to go home. no new complaints. pt well known to [place] [facility] for her long hx of seizure, which she has it about 3-4 x/year. on 3 seizure meds. Admission/Initial HPI documentation:Kayli Kurtz is a 77 year old female who presents to the ER due to being found on the ground in her bedroom by her neighbor. She reports pain in right shoulder and back after the fall. Episode of stool incontinence while on the ground. She last remembers watching TV in bed around 10pm last night. The next thing she remembers is being on the floor with her neighbor coming in screaming this morning. Her neighbor has a brown and usual comes by take out the dog every morning around 7am. In the ER she currently feels back to her normal self but cannot work out why she was on the floor. No current confusion and she reportedly felt her normal self yesterday. However on further questioning she does note increased urinary frequency getting progressively worse over the last month. In the ER she tested positive for SARS-COV-2 on routine testing however she denies any chest pain, shortness of breath, cough, sore throat, diarrhea, nasal congestion, loss of taste or smell. Past Medical History: See chart Meds: See chart I personally reviewed all of the medications Social & Family History: See chart Review of Systems: Per initial HPI on admission. Pt too cognitively or communication impaired to participate in ROS. Physical Exam: GEN: NAD HEENT: Normocephalic Neuro: Mental status:A & O x 3.No dysarthria or aphasia.No neglect. Fluent speech. No apraxia Cranial Nerves:II-XII intact Motor:Normal bulk and tone,5/5 strength x 4 extremities Coordination:Intact FTN testing Reflexes:+2 throughout, down going toes jumana Sensation: Intact x 4 extremities to touch Chart reviewed I have spent more than 50% educating patient about potential diagnosis and neurological evaluation and coordinating care with patient's treatment team. Total time spent (including chart review and coordination of care): 80 min (this includes chart review). History of Present Illness Attending Physician: Mango Metzger MD Allergies Allergy/AdvReac Type Severity Reaction Status Date / Time Iodinated Contrast Media Allergy Intermediate Hives Verified 09/25/21 20:09 iodine Allergy Mild HIVES Verified 09/20/21 13:32 morphine Allergy Unknown Unknown Verified 09/25/21 20:09 simvastatin Allergy Unknown Unknown Verified 09/25/21 20:09 prednisone AdvReac Mild GI UPSET Verified 09/20/21 13:32 Home Medications Medication Instructions Recorded Confirmed Type lacosamide 200 mg tablet (Vimpat) 200 mg PO BID ##0 11/29/12 06/21/22 History levetiracetam 500 mg tablet 1,000 mg PO BID #0 tabs 11/29/12 06/21/22 History valacyclovir 500 mg tablet 500 mg PO DAILY #0 tabs 11/29/12 06/21/22 History topiramate 50 mg tablet 50 mg PO HS #0 tabs 07/20/16 06/21/22 History acetaminophen 500 mg tablet 500 mg PO Q6H PRN Pain 09/20/21 06/21/22 History donepezil 5 mg tablet 5 mg PO QAM 09/20/21 06/21/22 History hydroxyzine pamoate 25 mg capsule 25 mg PO BID PRN allergies 09/20/21 06/21/22 History paroxetine HCl 20 mg tablet 20 mg PO DAILY 09/20/21 06/21/22 History carbidopa 25 mg-levodopa 100 mg 1 tab PO TID #15 tabs 09/26/21 06/21/22 Rx tablet (Sinemet) propranolol 10 mg tablet 10 mg PO BID #20 tabs 09/26/21 06/21/22 Rx ergocalciferol (vitamin D2) 1,250 50,000 unit PO WK 06/21/22 06/21/22 History mcg (50,000 unit) capsule Patient History Medical History Aortic valve insufficiency Hx of meningitis Seizure 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 [employer] Family History Other No pertinent family history Social History Smoking Status: Never smoker Second Hand Exposure: No; Hx Alcohol Use: Yes Alcohol type: hard liquor Alcohol Intake Frequency: Monthly or Less Hx Substance Use: No Preferred Language: Danish Communication Ability: Effective Hearing Ability: Normal Rn Home Health Required: No Beliefs That Will Affect Care: Oriental [employer] marital status: Current Living Situation: Alone Current Living Situation Comment: shelter current occupational status: retired Feels Safe at Home: Yes Safety Concerns: Feels Safe At This Time Assistive Devices: Denture - Upper, Denture - Lower, Glasses and Walker Results & Data ([facility]) Vital Signs (Past 12 Hours) Vital Signs Temp Pulse Pulse Pulse Resp BP BP 06/22/22 08:00 62 06/22/22 08:20 36.6 C 60 18 131/71 06/22/22 04:21 38.5 C H 83 18 123/61 06/21/22 23:26 68 06/21/22 23:14 37.0 C 73 18 103/52 L Pulse Ox O2 Del Method 06/22/22 08:00 06/22/22 08:20 93 Room Air 06/22/22 04:21 96 Room Air 06/21/22 23:26 06/21/22 23:14 97 Room Air
[2022-06-22] MEDS: cefTRIAXone SODIUM 1,000 MG in DEXTROSE 5% AD-VAN 50 ML IV SCH (11:04)
--- NOTE | 2022-06-22 17:43 | Hospitalist Progress Note ---
Date of Service June 22, 2022 Assessment & Plan (1) Unresponsive episode: Plan: Suspected seizure (given rapid recovery) in setting of UTI - no acute adjustments to home meds recommended. Consult neurology -recommended current antiseizure treatment, and treating for UTI Monitor for arrhythmias on telemetry CK level WNL PT/OT (2) Seizure disorder: Plan: Continue her usual anti-seizure mediations with Vimpat, Keppra and Topamax (3) Acute UTI: Plan: Symptoms of urinary frequency and suprapubic pain Urine culture taken on admission although not the best sample given her symptoms will avoid straight cath sample and treat with antibiotics No CVA tenderness on exam Ceftriaxone 1g IV daily Pending culture (4) SARS-CoV-2 positive: Plan: Unclear is false positive, asymptomatic COVID or presymptomatic COVID Consider retesting if patient stays Irregardless she doesn't need treatment but will be on isolation precautions for COVID-19 initially (5) Aneurysm of thoracic aorta: Plan: Follow up with vascular as outpatient (6) Vitamin B12 deficiency: Plan: Recheck B12, reportedly on supplementation for this but not listed, diagnosed last admission (7) Benign essential tremor: Plan: Continue her usual dose of propranolol (8) Parkinsonian features: Plan: Continue her usual Sinemet dosing (9) Dementia: Plan: Continue donepezil 5mg PO daily Plan VTE Prophylaxis - chemical deferred due to scalp contusion Diet - regular Disposition - observation status to med/tele Admission and Anticipated Discharge Date Admission Date: June 21, 2022 Subjective Patient has some tremors today, waiting for the urine culture to come back given patient had a seizure activities, appreciated neurology input, possible discharge tomorrow Physical Exam Constitutional: WD/WN, vitals as above Eyes: PERRL, conjunctivae normal, anicteric sclerae Respiratory: normal respiratory effort, lungs clear to auscultation Cardiovascular: RRR, no murmur, no edema Gastrointestinal (Abdomen): Inspection/Auscultation: abdomen normal to inspection; abdomen not distended Percussion/Palpation: + abdomen tender (sup rapubic) and abdomen soft; no guarding and abdomen not rigid Musculoskeletal: no cyanosis or clubbing, extremities motor strength 5/5 Skin: no rashes, warm and dry Neurologic: moves all extremities and awake; no focal motor deficits and not confused Speech / Cognition: normal speech Motor/Sensory: + tremor (action R > L, mild); no pronator drift Cranial Nerves: PERRL, EOM intact bilaterally, normal facial strength, tongue midline, able to rotate head bilaterally, able to elevate shoulders bilaterally and no nystagmus Psychiatric: A+Ox3, euthymic affect Results & Data Results & Data ([facility]) Vital Signs (Past 12 Hours) Vital Signs Temp Pulse Pulse Resp BP Pulse Ox O2 Del Method 06/22/22 16:19 58 L 06/22/22 15:51 36.5 C 59 L 20 179/74 H 95 Room Air 06/22/22 08:00 62 06/22/22 08:20 36.6 C 60 18 131/71 93 Room Air PG Care Time/CCT Total # of Minutes Spent Total Time Spent with Patient: Total time spent is greater than 50% in coordination of care (as documented) at patient's floor/unit and/or counseling patient: Coding Level of Care Code 30295 Subseq Hosp Care Lvl 2 Diagnoses Unresponsive episode R41.89 Seizure disorder G40.909 Acute UTI N39.0 SARS-CoV-2 positive U07.1 Aneurysm of thoracic aorta I71.21 Presence of rupture: without rupture Thoracic aorta location: ascending aorta Vitamin B12 deficiency E53.8 Benign essential tremor G25.0 Parkinsonian features R25.9 Dementia F03.90 (1) Aneurysm of thoracic aorta Presence of rupture: without rupture Thoracic aorta location: ascending aorta Qualified Code(s): I71.21 - Aneurysm of the ascending aorta, without rupture
[2022-06-22] MEDS: TOPIRAMATE 50 MG TAB PO SCH (21:44)
--- NOTE | 2022-06-22 22:02 | Electrocardiogram Report ---
Test Reason : Blood Pressure : / mmHG Vent. Rate : 062 BPM Atrial Rate : 062 BPM P-R Int : 208 ms QRS Dur : 082 ms QT Int : 456 ms P-R-T Axes : 058 -03 070 degrees QTc Int : 462 ms Poor data quality, interpretation may be adversely affected Normal sinus rhythm Nonspecific ST and T wave abnormality Abnormal ECG When compared with ECG of 24-SEP-2021 08:22, RSR' pattern in V1 is no longer Present Confirmed by Eulogio Ellis ([id number]) on 06/22/2022 10:01:39 PM Referred By: REFERRED SELF Confirmed By:Eulogio Ellis
[2022-06-22 22:20] LABS: Appearance Urine Clear (Clear); Bacteria Urine Automated Negative (Negative); Bilirubin Urine Negative (Negative); Blood Urine 2+ (Negative); Color Urine Yellow; Epithelial Cell Urine Auto >30 /lpf (0-5); Glucose Urine UA Negative (Negative); Ketones Urine Trace (Negative); Leukocyte Esterase Urine Trace (Negative); Nitrite Urine Negative (Negative); Protein Urine Trace (Negative); Specific Gravity Urine 1.023 (1.000-1.030); Urobilinogen Urine Negative (Negative)
[2022-06-23] MEDS: levETIRAcetam 500 MG TAB PO SCH (08:30)
[2022-06-23] MEDS: PROPRANOLOL HCL 10 MG TAB PO SCH (08:31)
[2022-06-23] MEDS: valACYclovir HCL 500 MG TABLET PO SCH (08:31)
[2022-06-23] MEDS: DONEPEZIL HCL 5 MG TAB PO SCH (08:31)
[2022-06-23] MEDS: LACOSAMIDE 50 MG TABLET PO SCH (08:31)
[2022-06-23] MEDS: PARoxetine HCL 20 MG TAB PO SCH (08:31)
[2022-06-23] MEDS: CARBIDOPA/LEVODOPA 25/100MG TAB PO SCH ×2 (08:31→14:25)
[2022-06-23] MEDS: cefTRIAXone SODIUM 1,000 MG in DEXTROSE 5% AD-VAN 50 ML IV SCH (11:35)
--- NOTE | 2022-06-23 20:16 | Discharge Summary ---
Date of Service June 23, 2022 Admission HPI Per Admitting Provider Kayli Kurtz is a 77 year old female who presents to the ER due to being found on the ground in her bedroom by her neighbor. She reports pain in right shoulder and back after the fall. Episode of stool incontinence while on the ground. She last remembers watching TV in bed around 10pm last night. The next thing she remembers is being on the floor with her neighbor coming in screaming this morning. Her neighbor has a brown and usual comes by take out the dog every morning around 7am. In the ER she currently feels back to her normal self but cannot work out why she was on the floor. No current confusion and she reportedly felt her normal self yesterday. However on further questioning she does note increased urinary frequency getting progressively worse over the last month. In the ER she tested positive for SARS-COV-2 on routine testing however she denies any chest pain, shortness of breath, cough, sore throat, diarrhea, nasal congestion, loss of taste or smell. Principal Diagnosis seizure activity triggered by UTI Discharge Exam Constitutional WD/WN, vitals as above Eyes PERRL, conjunctivae normal, anicteric sclerae Respiratory normal respiratory effort, lungs clear to auscultation Cardiovascular RRR, no murmur, no edema Gastrointestinal (Abdomen) Inspection/Auscultation: abdomen normal to inspection; abdomen not distended Percussion/Palpation: + abdomen tender (suprapubic) and abdomen soft; no guarding and abdomen not rigid Musculoskeletal no cyanosis or clubbing, extremities motor strength 5/5 Skin no rashes, warm and dry Neurologic moves all extremities and awake; no focal motor deficits and not confused Speech / Cognition: normal speech Motor/Sensory: + tremor (action R > L, mild); no pronator drift Cranial Nerves: PERRL, EOM intact bilaterally, normal facial strength, tongue midline, able to rotate head bilaterally, able to elevate shoulders bilaterally and no nystagmus Psychiatric A+Ox3, euthymic affect Discharge Data Allergies Allergy/AdvReac Type Severity Reaction Status Date / Time Iodinated Contrast Media Allergy Intermediate Hives Verified 09/25/21 20:09 iodine Allergy Mild HIVES Verified 09/20/21 13:32 morphine Allergy Unknown Unknown Verified 09/25/21 20:09 simvastatin Allergy Unknown Unknown Verified 09/25/21 20:09 prednisone AdvReac Mild GI UPSET Verified 09/20/21 13:32 Consultations 06/21/22 13:40 ED Decision to Admit Stat 06/21/22 16:12 Consult Neurology Routine Ordered Studies 06/21/22 10:06 CT cervical spine wo con Stat CT head/brain wo con Stat CT lumbar spine wo con Stat CT thoracic spine wo con Stat Hospital Course (1) Unresponsive episode: Suspected seizure (given rapid recovery) in setting of UTI - no acute adjustments to home meds recommended by neurology CK level WNL PT/OT (2) Seizure disorder: Continue her usual anti-seizure mediations with Vimpat, Keppra and Topamax (3) Acute UTI: Symptoms of urinary frequency and suprapubic pain, patient started on Rocephin, symptoms resolved, patient has active urine sediment, however the urine sample for the urine culture was contaminated and the result was not diagnostic. If if first urine culture performed on 06/21 showed 5-10 white cells and 3+ bacteria however the urine exam performed on 06/22 showed no white cells and no bacteria, patient received Rocephin for 3 days which is a good coverage for simple cystitis (4) SARS-CoV-2 positive: Unclear is false positive, asymptomatic COVID or presymptomatic COVID Consider retesting if patient stays Irregardless she doesn't need treatment but will be on isolation precautions for COVID-19 initially (5) Aneurysm of thoracic aorta: Follow up with vascular as outpatient (6) Vitamin B12 deficiency: Recheck B12, reportedly on supplementation for this but not listed, diagnosed last admission (7) Benign essential tremor: Continue her usual dose of propranolol (8) Parkinsonian features: Continue her usual Sinemet dosing (9) Dementia: Continue donepezil 5mg PO daily Plan VTE Prophylaxis - chemical deferred due to scalp contusion Diet - regular Disposition - observation status to med/tele Total Time Total Time Spent Total Time Spent (In Minutes): 45 Discharge Plan Discharge Items Patient Disposition: Home - Self-Care Reason For Visit: FOUND ON FLOOR OF HOME, UTI Discharge Diagnosis: uti ,seizure Activity: Resume your previous activity Bathing: No limitations Sexual Activity: When tolerated Exercise/Sports: None Driving/Machine Use: No limitations Weightbearing: Full weightbearing Non-emergency contact: Primary Care Provider and Neurologist Call non-emergency contact if: you have any medication questions Follow-up/Referrals: Ciro Chong, KLARISSA [Primary Care Provider] - (PLEASE CALL YOUR PRIMARY CARE PROVIDER TO SCHEDULE A DISCHARGE FOLLOW-UP APPOINTMENT WITHIN 7-10 DAYS) Diet: Low Sodium (2gm) Addtl Attending Provider Instructions: please follow with your primary care doctor in one week Pending Studies at Discharge: No Stand-Alone Forms: My [facility] [employer], Smoking Cessation Medications and DC Order Prescriptions: Continued levetiracetam 500 mg Tablet 1,000 mg PO BID Qty: 0 valacyclovir 500 mg Tablet 500 mg PO DAILY Qty: 0 lacosamide [Vimpat] 200 mg Tablet 200 mg PO BID Qty: 0 topiramate 50 mg Tablet 50 mg PO HS Qty: 0 donepezil 5 mg tablet 5 mg PO QAM acetaminophen 500 mg Tablet 500 mg PO Q6H PRN (Reason: Pain) paroxetine HCl 20 mg tablet 20 mg PO DAILY hydroxyzine pamoate 25 mg capsule 25 mg PO BID PRN (Reason: allergies) propranolol 10 mg Tablet 10 mg PO BID Qty: 20 0RF carbidopa-levodopa [Sinemet] 25-100 mg Tablet 1 tab PO TID Qty: 15 0RF ergocalciferol (vitamin D2) 1,250 mcg (50,000 unit) capsule 50,000 unit PO WK Discharge Orders: Discharge Order (Routine); Ordered 06/23/22 Ordered By: Mango Metzger Admission Data Admit Date/Time: 06/21/22 13:46 Attending Provider: Mango Metzger Admit Provider: Eyal Espinoza Primary Care Provider: Ciro Chong Other Providers: Eyal Espinoza ; Pedro Cain Other Interventions: Discharge Summary Assessment (RN) Last Done: 06/23/22 15:52 Coding Level of Care Code D/C DAY MANAGEMENT >30 MINS Diagnoses Unresponsive episode R41.89 Seizure disorder G40.909 Acute UTI N39.0 SARS-CoV-2 positive U07.1 Aneurysm of thoracic aorta I71.21 Presence of rupture: without rupture Thoracic aorta location: ascending aorta Vitamin B12 deficiency E53.8 Benign essential tremor G25.0 Parkinsonian features R25.9 Dementia F03.90
== END 2022-06-23 18:09 | disposition home or self-care (01) ==
LOC: ED 08:47 → 2N 08:47 → SUATTDRO 13:46 → 2N 14:40

== ENCOUNTER 2025-01-31 18:42 | Inpatient (IN) ==
[2025-01-31 19:14] LABS: Hematocrit (blood only) 40.9 % (37.0-47.0); Hemoglobin 14.0 g/dl (12.0-16.0); Immature Granulocytes # (auto) 0.09 K/uL (0.01-0.20); Immature Granulocytes % (auto) 1.0 %; Mean Corpuscular Hemoglobin 33.1 pg (25.0-34.0); Mean Corpuscular Volume 96.7 fL (80.0-100.0); Platelet Count 286 K/uL (130-400); RDW Standard Deviation 45.6 fL (36.4-46.3); Red Blood Count 4.23 M/uL (4.20-5.40); White Blood Count 8.76 K/ul (4.8-10.8)
--- NOTE | 2025-01-31 19:16 | Emergency Department Note ---
Impression & Plan Fall from standing, Acute back pain, Closed compression fracture of L2 vertebra, Ambulatory dysfunction, Generalized weakness ED Provider Note HISTORY OF PRESENT ILLNESS: Patient is a 79-year-old female presenting with back pain after a fall. Patient reports she was walking with her walker when she lost her footing and fell backwards, landing flat on her back and striking the back of her head on a metal cabinet. Denies loss of consciousness. She is not on any anticoagulation or antiplatelet therapy. She is complaining of pain from the neck to the base of her spine. Is also complaining of posterior rib pain bilaterally. Denies any anterior chest pain or shortness of breath. Denies any chest pain, shortness of breath or lightheadedness prior to the fall. Denies any nausea or vomiting. Denies any abdominal pain. ROS: as above PHYSICAL EXAM: Primary Survey Airway: Intact Breathing: Normal, breath sounds equal bilaterally Circulation: Skin warm, distal pulses 2+, capillary refill less than 2 seconds Disability Pupils: Equal and reactive to light, 3 mm, brisk GCS: 15, E = 4, V=5, M= 6 Motor Function: Moves all extremities. Sensory: No deficits Secondary Survey GEN: Well developed and well-nourished HENT: Head: Hematoma to posterior scalp Mouth/Throat: Midface stable. No malocclusion. Eyes: EOMI. Pupils are 3 mm, round and reactive bilaterally. Neck: C-collar in place. No midline C-spine tenderness. No step-offs. Cardiovascular: RRR. Pulses present in all 4 extremities. Pulmonary/Chest: BS equal bilaterally. No ecchymosis. Diffuse tenderness to palpation of the bilateral lateral lower chest wall. Abdomen: No tenderness or ecchymosis. Musculoskeletal: Pelvis: No instability. Back: No step-offs or deformities. Lower lumbar midline tenderness to palpation. Extremities: No gross deformities. No TTP. Skin: No laceration. No abrasion. Neuro: No focal neurological deficits. GCS as above. Psych: Normal mood and affect. MDM: - Vitals signs showed hypertension - History obtained via patient. History as above. - Chronic conditions affecting care: depression; seizure disorder; tremor - Differential diagnoses include, but are not limited to: compression fracture; skull fracture; intracranial hemorrhage; rib fracture; pulmonary contusion - Order placed for continuous cardiac monitoring. At this time, monitor showed rate of 65 bpm with normal sinus rhythm, per my interpretation. - External medical records reviewed. Discharge summary dated 10/22/2024 was reviewed. Patient was admitted after a fall and suffering a small rib fracture and pneumothorax. - Laboratory workup interpreted by myself showed normal WBC; normal PT/INR; stable electrolytes; normal troponin; normal lipase - CXR image reviewed by myself negative for pneumothorax, per my interpretation - CT head wo contrast negative for acute pathology - CT cervical spine wo contrast negative for acute injury - Patient has hives allergy to IV contrast - given 40 mg IV solumedrol and 25 mg IV benadryl - Given 4 mg IV zofran and 50 mcg IV fentanyl for symptomatic management on arrival to ER. - CT chest with IV contrast negative for acute traumatic injury. Noted to have reticulonodular densities in inferior right upper lobe, right middle lobe and right lower lobe. - CT abdomen/pelvis with IV contrast showed a superior endplate compression deformity at L2 - The patient's cervical collar was removed today. The patient's imaging was reviewed and the CT C-Spine was negative for acute injury. The patient was alert and oriented prior to her exam. On exam, she was non-tender to palpation midline and had full ROM without any neurologic deficits. The patient tolerated this procedure well. Collar removed at 20:55 - Patient attempted to ambulate to the bathroom with nursing staff. She got to the toilet but was unable to get up off of the commode by herself secondary to weakness. Patient is unable to go home at this time secondary to her weakness. - Discussion was had with assistant case manager about patient's case and need for admission - Hospitalist consulted for admission - [facility] for further evaluation and management. 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 [employer] Family History Other No pertinent family history Social History (Reviewed 06/21/22 @ 09: by Royce Melton MD) Smoking Status: Never smoker Second Hand Exposure: No; Do You Dip or Chew Tobacco: No; Hx Alcohol Use: Yes Alcohol type: hard liquor Alcohol Intake Frequency: Monthly or Less Hx Substance Use: No Preferred Language: Sammarinese Communication Ability: Effective Hearing Ability: Normal Fisher Trawl Line Required: No Beliefs That Will Affect Care: None marital status: Current Living Situation: Alone Current Living Situation Comment: care home current occupational status: retired Feels Safe at Home: Yes Assistive Devices: Walker Allergies Allergies Allergy/AdvReac Type Severity Reaction Status Date / Time Iodinated Contrast Media Allergy Intermediate Hives Verified 09/25/21 20:09 iodine Allergy Mild HIVES Verified 09/20/21 13:32 morphine Allergy Unknown Unknown Verified 09/25/21 20:09 simvastatin Allergy Unknown Unknown Verified 09/25/21 20:09 prednisone AdvReac Mild GI UPSET Verified 09/20/21 13:32 Home Meds Home Medications Medication Instructions Recorded Confirmed lacosamide 200 mg tablet (Vimpat) 200 mg PO BID ##0 11/29/12 01/31/25 levetiracetam 500 mg tablet 1,000 mg PO BID #0 tabs 11/29/12 01/31/25 valacyclovir 500 mg tablet 500 mg PO DAILY #0 tabs 11/29/12 01/31/25 acetaminophen 500 mg tablet 1,000 mg PO Q6H PRN Pain 09/20/21 01/31/25 donepezil 5 mg tablet 5 mg PO QAM 09/20/21 01/31/25 carbidopa 25 mg-levodopa 100 mg 1.5 tab PO TID 10/15/24 01/31/25 tablet (Sinemet) carbidopa ER 25 mg-levodopa 100 mg 1 tab PO QPM 10/15/24 01/31/25 tablet,extended release hydroxyzine pamoate 25 mg capsule 25 mg PO BID PRN DIRECTED 01/31/25 01/31/25 paroxetine HCl 40 mg tablet 40 mg PO QAM 01/31/25 01/31/25 topiramate 25 mg tablet 50 mg PO HS 01/31/25 01/31/25 Previous Rx's Medication Instructions Recorded tramadol 50 mg tablet 50 mg PO Q8H PRN pain #10 tabs 10/16/24 Results & Data (ED) Vital Signs Vital Signs - 24 hr 01/31/25 18:31 01/31/25 18:57 01/31/25 19:01 Temperature 37.1 C Temperature Source Oral Pulse Rate 80 66 Pulse Rate [Left] 66 Respiratory Rate 16 20 16 Respiratory Depth Normal Blood Pressure 180/82 H Blood Pressure [Left Arm] 168/87 H Blood Pressure Mean 114 Blood Pressure Mean [Left Arm] 114 Pulse Oximetry 96 90 91 Oxygen Delivery Method Room Air Room Air Room Air Sepsis Recent Fever Within 48 Hours No Sepsis New/Unexplained Change in Mental Status N/A Sepsis Action Taken by Nursing No Action Required 01/31/25 19:03 01/31/25 19:57 01/31/25 20:00 Temperature Temperature Source Pulse Rate 67 Pulse Rate [Left] 66 65 Respiratory Rate 18 19 Respiratory Depth Blood Pressure Blood Pressure [Left Arm] 176/79 H 176/79 H Blood Pressure Mean Blood Pressure Mean [Left Arm] 111 111 Pulse Oximetry 97 95 Oxygen Delivery Method Room Air Room Air Sepsis Recent Fever Within 48 Hours Sepsis New/Unexplained Change in Mental Status Sepsis Action Taken by Nursing Laboratory Data 01/31/25 Unknown 01/31/25 Unknown Lab Results 01/31/25 Range/Units Unknown WBC 8.76 (4.8-10.8) K/ul RBC 4.23 (4.20-5.40) M/uL Hgb 14.0 (12.0-16.0) g/dl Hct 40.9 (37.0-47.0) % MCV 96.7 (80.0-100.0) fL MCH 33.1 (25.0-34.0) pg MCHC 34.2 (32.0-36.0) g/dL RDW Std Deviation 45.6 (36.4-46.3) fL RDW Coeff of Angel 12.8 (11.5-14.5) % Plt Count 286 (130-400) K/uL MPV 9.6 (9.4-12.4) fL Immature Gran % (Auto) 1.0 % Neut % (Auto) 74.0 % Lymph % (Auto) 16.7 % Dewitt % (Auto) 7.3 % Eos % (Auto) 0.5 % Baso % (Auto) 0.5 % Neut # (Auto) 6.49 (1.40-6.50) K/uL Lymph # (Auto) 1.46 (1.20-3.40) K/uL Dewitt # (Auto) 0.64 H (0.11-0.59) K/uL Eos # (Auto) 0.04 (0.00-0.50) K/uL Baso # (Auto) 0.04 (0.00-0.20) K/uL Immature Gran # (Auto) 0.09 (0.01-0.20) K/uL PT 11.5 (9.0-12.0) Seconds INR 1.1 (0.9-1.1) APTT 29 (21-31) Seconds PTT Ratio 1.1 Sodium 139 (136-145) mmol/L Potassium 3.8 (3.5-5.1) mmol/L Chloride 106 (98-107) mmol/L Carbon Dioxide 24 (21-32) mmol/L Anion Gap 9 (3-11) BUN 20 (6-23) mg/dl Creatinine 0.82 (0.6-1.2) mg/dl Est Cr Clr Drug Dosing 45.4 ml/min eGFR 73.63 BUN/Creatinine Ratio 24.4 H (10-20) Glucose 97 (70-99(Fasting)) mg/dl Calcium 9.4 (8.6-10.3) mg/dl Total Bilirubin 0.4 (0.2-1.0) mg/dl AST 11 L (13-39) U/L ALT 3 L (7-52) U/L Alkaline Phosphatase 114 H (34-104) U/L Troponin I High Sens 4.3 (0-14) pg/ml Total Protein 7.4 (6.0-8.3) gm/dl Albumin 4.2 (3.4-5.0) gm/dl Globulin 3.2 (2.5-4.0) gm/dl Albumin/Globulin Ratio 1.3 (0.9-2) Lipase 18 (11-82) U/L Administered Medications Discontinued Medications Diphenhydramine HCl (Diphenhydramine 50 Mg/Ml Vial) 25 mg IV NOW STA Stop: 01/31/25 19:03 Last Admin: 01/31/25 19:17 Dose: 25 mg Documented By: AZEEM Fentanyl Citrate (Fentanyl Citrate Pf 100 Mcg/2 Ml Vial) 50 mcg IV NOW STA Stop: 01/31/25 19:03 Last Admin: 01/31/25 19:17 Dose: 50 mcg Documented By: AZEEM Acetaminophen (Ofirmev) 1,000 mg in 100 mls @ 400 mls/hr IV NOW STA Stop: 01/31/25 21:46 Last Admin: 01/31/25 21:49 Dose: 400 mls/hr Documented By: AZEEM Ioversol (Optiray 320 100ml) 90 ml IV ONCE ONE Stop: 01/31/25 19:44 Last Admin: 01/31/25 19:43 Dose: 90 ml Documented By: BROWN Lidocaine (Lidocaine 5% 1 Patch) 1 patch TD NOW STA Stop: 01/31/25 21:33 Last Admin: 01/31/25 21:50 Dose: 1 patch Documented By: AZEEM Methylprednisolone (Methylprednisolone 125 Mg/2 Ml Vial) 40 mg IV NOW STA Stop: 01/31/25 19:03 Last Admin: 01/31/25 19:17 Dose: 40 mg Documented By: AZEEM Ondansetron HCl (Ondansetron Inj 2 Mg/Ml 2 Ml Vial) 4 mg IV NOW STA Stop: 01/31/25 19:02 Last Admin: 01/31/25 19:17 Dose: 4 mg Documented By: AZEEM Imaging Data Radiologist's Impression: Abdomen/Pelvis CT 01/31/25 19:01 Exam(s): CT ABDOMEN + PELVIS With Contrast EXAM: CT Abdomen and Pelvis With Intravenous Contrast CLINICAL HISTORY: Reason for exam: Trauma. TECHNIQUE: Axial computed tomography images of the abdomen and pelvis with intravenous contrast. CTDI is 8.5 mGy and DLP is 393.45 mGy-cm. Automated exposure control was utilized for the study. A dose lowering technique was utilized adhering to the principles of ALARA. CONTRAST: Contrast must be dictated COMPARISON: CT abdomen/pelvis on 09/29/2006 FINDINGS: Lung bases: Reticulonodular densities in the right lower lung raise concern for infectious/inflammatory process. No consolidation. ABDOMEN: Liver: Unremarkable. No mass. Gallbladder and bile ducts: Unremarkable. No calcified stones. No ductal dilation. Pancreas: Unremarkable. No mass. No ductal dilation. Spleen: Unremarkable. No splenomegaly. Adrenals: Unremarkable. No mass. Kidneys and ureters: Nonobstructing right renal stone. No hydronephrosis or obstructing ureteral stone. Stomach and bowel: Diverticulosis without evidence of diverticulitis. No small bowel obstruction. PELVIS: Appendix: No findings to suggest acute appendicitis. Bladder: Unremarkable. No mass. Reproductive: Atrophic or absent uterus. ABDOMEN and PELVIS: Intraperitoneal space: Unremarkable. No free air. No significant fluid collection. Bones/joints: Probably acute mild superior endplate compression deformity of L2. Degenerative changes of the spine. No dislocation. Soft tissues: Unremarkable. Vasculature: Atherosclerotic changes of the vasculature. No abdominal aortic aneurysm or dissection. Lymph nodes: Unremarkable. No enlarged lymph nodes. IMPRESSION: 1. Reticulonodular densities in the right lower lung raise concern for infectious/inflammatory process. 2. Probably acute mild superior endplate compression deformity of L2. 3. Nonobstructing right renal stone. No hydronephrosis or obstructing ureteral stone. Electronically signed by: Bert Sommer M.D. 01/31/25 20:[address] 01/31/25 19:01 Exam(s): CT C SPINE EXAM: CT Cervical Spine Without Intravenous Contrast CLINICAL HISTORY: Reason for exam: Trauma. TECHNIQUE: Axial computed tomography images of the cervical spine without intravenous contrast. CTDI is 25.5 mGy and DLP is 430.66 mGy-cm. Automated exposure control was utilized for the study. A dose lowering technique was utilized adhering to the principles of ALARA. COMPARISON: None FINDINGS: Bones: Normal alignment. No acute fracture or bony lesion. Disc spaces: No subluxation. Degenerative changes of the spine. Soft tissues: Normal. Other: Atherosclerotic changes of the vasculature. Scarring at the lung apices. IMPRESSION: No acute traumatic abnormality. Electronically signed by: Bert Sommer M.D. 01/31/25 20:[address] 01/31/25 19:01 Exam(s): CT CHEST With Contrast EXAM: CT Chest With Intravenous Contrast CLINICAL HISTORY: Reason for exam: Trauma. TECHNIQUE: Axial computed tomography images of the chest with intravenous contrast. CTDI is 8.24 mGy and DLP is 266.15 mGy-cm. Automated exposure control was utilized for the study. A dose lowering technique was utilized adhering to the principles of ALARA. CONTRAST: Contrast must be dictated COMPARISON: CT chest on 10/15/2024 FINDINGS: Lungs: Reticulonodular densities in the inferior right upper lobe, right middle lobe, and right lower lobe, concerning for infectious/inflammatory process. Impactions in some of the right middle lobe bronchi. Calcified granulomas in the right lower lung. Mild scarring at the lung apices. No mass. No consolidation. Pleural space: Unremarkable. No significant effusion. No pneumothorax. Heart: Mild aortic valve calcifications. No cardiomegaly. No significant pericardial effusion. No significant coronary artery calcifications. Bones/joints: Degenerative changes of the spine. Please see accompanying CT abdomen/pelvis regarding L2. Old bilateral rib fracture deformities. Soft tissues: Unremarkable. Vasculature: Atherosclerotic changes of the aorta. No aortic aneurysm or dissection. Lymph nodes: Unremarkable. No enlarged lymph nodes. IMPRESSION: Reticulonodular densities in the inferior right upper lobe, right middle lobe, and right lower lobe, concerning for infectious/inflammatory process. Impactions in some of the right middle lobe bronchi. Please see accompanying CT abdomen/pelvis for further details. Electronically signed by: Bert Sommer M.D. 01/31/25 20:26 PM Chest X-Ray 01/31/25 19:01 EXAM: XR chest 1V portable CLINICAL HISTORY: Trauma TECHNIQUE: An X-ray image of the chest is obtained in AP projection. COMPARISON: No prior studies are available for comparison. FINDINGS: Pulmonary Parenchyma: Coarse reticular shadowing, seen bilaterally, likely represents changes associated with COPD. No evidence of consolidation, collapse, or focal opacities. A small well-defined opacity noted in the right upper zone is likely of a benign etiology. No evidence of pleural effusion or pleural thickening. Heart and Mediastinum: Heart size is at the upper normal limit. No mediastinal widening or masses. No hilar or mediastinal lymphadenopathy. Bony Thorax: Bony thorax appears intact without fractures or deformities. Mild degenerative changes are noted. Bone density is mildly reduced. Soft Tissues: Soft tissues overlying the chest wall are unremarkable. IMPRESSION: 1. Bilateral COPD changes. 2. No acute cardiopulmonary abnormalities are identified. 3. No acute osseous pathology is noted. Electronically signed by Forest Hernandez 01-31-2025 9:[address] 01/31/25 19:01 Exam(s): CT HEAD Without Contrast EXAM: CT Head Without Intravenous Contrast CLINICAL HISTORY: Reason for exam: trauma. TECHNIQUE: Axial computed tomography images of the head/brain without intravenous contrast. CTDI is 36.31 mGy and DLP is 624.41 mGy-cm. Automated exposure control was utilized for the study. A dose lowering technique was utilized adhering to the principles of ALARA. COMPARISON: CT head on 10/15/2024 FINDINGS: Brain: No acute infarct or hemorrhage identified. No extra-axial fluid collection. No mass effect or midline shift. Scattered areas of hypoattenuation in the supratentorial white matter likely represent chronic small vessel ischemic changes. Ventricles and sulci: Prominence of the ventricles and sulci is likely secondary to cerebral volume loss. Bones: Normal. No bony lesion or acute fracture. Subcutaneous tissues: Normal. Sinuses: Normal. No air-fluid levels or mucosal thickening. Mastoid air cells: Normal. Orbits: Grossly unremarkable. Other: Atherosclerotic calcifications in the intracranial vasculature. IMPRESSION: 1. No acute intracranial abnormality. 2. Mild chronic small vessel ischemic changes and cerebral volume loss. Electronically signed by: Bert Sommer M.D. 01/31/25 20:27 PM Discharge Plan Visit Data Chief Complaint: Fall Stated Complaint: BACK APIN, FALL ED Provider: Brianna Kumar Discharge Problem: Fall from standing, Acute back pain, Closed compression fracture of L2 vertebra, Ambulatory dysfunction, Generalized weakness Condition: Fair Forms Stand Alone Forms: [facility] Prescriptions Prescriptions: No Action levetiracetam 500 mg Tablet 1,000 mg PO BID Qty: 0 valacyclovir 500 mg Tablet 500 mg PO DAILY Qty: 0 lacosamide [Vimpat] 200 mg Tablet 200 mg PO BID Qty: 0 donepezil 5 mg tablet 5 mg PO QAM acetaminophen 500 mg Tablet 1,000 mg PO Q6H PRN (Reason: Pain) carbidopa-levodopa 25-100 mg tablet extended release 1 tab PO QPM Rx Instructions: TAKE EVERY DAY AT 7 PM carbidopa-levodopa [Sinemet] 25-100 mg tablet 1.5 tab PO TID Rx Instructions: 7,11,3pm tramadol 50 mg tablet 50 mg PO Q8H PRN (Reason: pain) Qty: 10 0RF Rx Instructions: use if tylenol does not work hydroxyzine pamoate 25 mg capsule 25 mg PO BID PRN (Reason: DIRECTED) topiramate 25 mg tablet 50 mg PO HS paroxetine HCl 40 mg tablet 40 mg PO QAM Referrals Referrals: Ciro Chong PA-C [Primary Care Provider] -
[2025-01-31] MEDS: ONDANSETRON INJ 2 MG/ML 2 ML VIAL IV STA (19:17)
[2025-01-31] MEDS: diphenhydrAMINE 50 MG/ML VIAL IV STA (19:17)
[2025-01-31 19:32] LABS: Alanine Aminotransferase 3.0 U/L (7-52); Albumin Globulin Ratio 1.3 (0.9-2); Alkaline Phosphatase 114.0 U/L (34-104); Anion Gap 9.0 (3-11); Bilirubin,Total 0.4 mg/dl (0.2-1.0); Blood Urea Nitrogen 20.0 mg/dl (6-23); Calcium 9.4 mg/dl (8.6-10.3); Carbon Dioxide 24.0 mmol/L (21-32); Chloride 106.0 mmol/L (98-107); Creatinine Clr Calc Pharmacy 45.4 ml/min; Globulin 3.2 gm/dl (2.5-4.0); Glucose 97.0 mg/dl (70-99(Fasting)); Lipase 18.0 U/L (11-82); Potassium 3.8 mmol/L (3.5-5.1); Sodium 139.0 mmol/L (136-145); Total Protein 7.4 gm/dl (6.0-8.3)
[2025-01-31] MEDS: OPTIRAY 320 100ml IV ONE (19:43)
[2025-01-31 19:57] LABS: INR 1.1 (0.9-1.1); Partial Thromboplastin Time 29 Seconds (21-31); Prothrombin Time 11.5 Seconds (9.0-12.0)
--- NOTE | 2025-01-31 20:16 | CT Scan Report ---
Exam(s): CT ABDOMEN + PELVIS With Contrast EXAM: CT Abdomen and Pelvis With Intravenous Contrast CLINICAL HISTORY: Reason for exam: Trauma. TECHNIQUE: Axial computed tomography images of the abdomen and pelvis with intravenous contrast. CTDI is 8.5 mGy and DLP is 393.45 mGy-cm. Automated exposure control was utilized for the study. A dose lowering technique was utilized adhering to the principles of ALARA. CONTRAST: Contrast must be dictated COMPARISON: CT abdomen/pelvis on 09/29/2006 FINDINGS: Lung bases: Reticulonodular densities in the right lower lung raise concern for infectious/inflammatory process. No consolidation. ABDOMEN: Liver: Unremarkable. No mass. Gallbladder and bile ducts: Unremarkable. No calcified stones. No ductal dilation. Pancreas: Unremarkable. No mass. No ductal dilation. Spleen: Unremarkable. No splenomegaly. Adrenals: Unremarkable. No mass. Kidneys and ureters: Nonobstructing right renal stone. No hydronephrosis or obstructing ureteral stone. Stomach and bowel: Diverticulosis without evidence of diverticulitis. No small bowel obstruction. PELVIS: Appendix: No findings to suggest acute appendicitis. Bladder: Unremarkable. No mass. Reproductive: Atrophic or absent uterus. ABDOMEN and PELVIS: Intraperitoneal space: Unremarkable. No free air. No significant fluid collection. Bones/joints: Probably acute mild superior endplate compression deformity of L2. Degenerative changes of the spine. No dislocation. Soft tissues: Unremarkable. Vasculature: Atherosclerotic changes of the vasculature. No abdominal aortic aneurysm or dissection. Lymph nodes: Unremarkable. No enlarged lymph nodes. IMPRESSION: 1. Reticulonodular densities in the right lower lung raise concern for infectious/inflammatory process. 2. Probably acute mild superior endplate compression deformity of L2. 3. Nonobstructing right renal stone. No hydronephrosis or obstructing ureteral stone. Electronically signed by: Bert Sommer M.D. 01/31/25 20:16 PM
--- NOTE | 2025-01-31 20:27 | CT Scan Report ---
Exam(s): CT CHEST With Contrast EXAM: CT Chest With Intravenous Contrast CLINICAL HISTORY: Reason for exam: Trauma. TECHNIQUE: Axial computed tomography images of the chest with intravenous contrast. CTDI is 8.24 mGy and DLP is 266.15 mGy-cm. Automated exposure control was utilized for the study. A dose lowering technique was utilized adhering to the principles of ALARA. CONTRAST: Contrast must be dictated COMPARISON: CT chest on 10/15/2024 FINDINGS: Lungs: Reticulonodular densities in the inferior right upper lobe, right middle lobe, and right lower lobe, concerning for infectious/inflammatory process. Impactions in some of the right middle lobe bronchi. Calcified granulomas in the right lower lung. Mild scarring at the lung apices. No mass. No consolidation. Pleural space: Unremarkable. No significant effusion. No pneumothorax. Heart: Mild aortic valve calcifications. No cardiomegaly. No significant pericardial effusion. No significant coronary artery calcifications. Bones/joints: Degenerative changes of the spine. Please see accompanying CT abdomen/pelvis regarding L2. Old bilateral rib fracture deformities. Soft tissues: Unremarkable. Vasculature: Atherosclerotic changes of the aorta. No aortic aneurysm or dissection. Lymph nodes: Unremarkable. No enlarged lymph nodes. IMPRESSION: Reticulonodular densities in the inferior right upper lobe, right middle lobe, and right lower lobe, concerning for infectious/inflammatory process. Impactions in some of the right middle lobe bronchi. Please see accompanying CT abdomen/pelvis for further details. Electronically signed by: Bert Sommer M.D. 01/31/25 20:26 PM
--- NOTE | 2025-01-31 20:28 | CT Scan Report ---
Exam(s): CT HEAD Without Contrast EXAM: CT Head Without Intravenous Contrast CLINICAL HISTORY: Reason for exam: trauma. TECHNIQUE: Axial computed tomography images of the head/brain without intravenous contrast. CTDI is 36.31 mGy and DLP is 624.41 mGy-cm. Automated exposure control was utilized for the study. A dose lowering technique was utilized adhering to the principles of ALARA. COMPARISON: CT head on 10/15/2024 FINDINGS: Brain: No acute infarct or hemorrhage identified. No extra-axial fluid collection. No mass effect or midline shift. Scattered areas of hypoattenuation in the supratentorial white matter likely represent chronic small vessel ischemic changes. Ventricles and sulci: Prominence of the ventricles and sulci is likely secondary to cerebral volume loss. Bones: Normal. No bony lesion or acute fracture. Subcutaneous tissues: Normal. Sinuses: Normal. No air-fluid levels or mucosal thickening. Mastoid air cells: Normal. Orbits: Grossly unremarkable. Other: Atherosclerotic calcifications in the intracranial vasculature. IMPRESSION: 1. No acute intracranial abnormality. 2. Mild chronic small vessel ischemic changes and cerebral volume loss. Electronically signed by: Bert Sommer M.D. 01/31/25 20:27 PM
--- NOTE | 2025-01-31 20:30 | CT Scan Report ---
Exam(s): CT C SPINE EXAM: CT Cervical Spine Without Intravenous Contrast CLINICAL HISTORY: Reason for exam: Trauma. TECHNIQUE: Axial computed tomography images of the cervical spine without intravenous contrast. CTDI is 25.5 mGy and DLP is 430.66 mGy-cm. Automated exposure control was utilized for the study. A dose lowering technique was utilized adhering to the principles of ALARA. COMPARISON: None FINDINGS: Bones: Normal alignment. No acute fracture or bony lesion. Disc spaces: No subluxation. Degenerative changes of the spine. Soft tissues: Normal. Other: Atherosclerotic changes of the vasculature. Scarring at the lung apices. IMPRESSION: No acute traumatic abnormality. Electronically signed by: Bert Sommer M.D. 01/31/25 20:29 PM
--- NOTE | 2025-01-31 21:34 | History & Physical Report ---
Date of Service January 31, 2025 Assessment & Plan (1) Fall from standing: (2) Closed compression fracture of L2 vertebra: (3) Ambulatory dysfunction: Plan Patient is a 79 y/o female with a PMHx of recurrent falls, benign essential tremor, MAC, seizures. She presented via EMS after a ground level fall at home using her walker, patient endorses HS on metal cabinet, denies LOC, no blood thinner use. Diagnostic imaging revealed acute mild superior endplate compression deformity of L2. She is being admitted for ambulatory dysfunction to have pt/ot evals given she was unable to ambulate in the ED 2/2 pain. #fall/ambulatory dysfunction - uses walker at baseline. Diagnostic imaging revealed acute mild superior endplate compression deformity of L2. - pain control with Tylenol prn, Toradol prn, and Dilaudid 0.25./0.5 (for pain not relieved by #1 and 2); allergy to morphine - Lidoderm patch - K pad prn - PT/OT consulted - q4h neurochecks x24 hours with head strike - consider ortho consult for spine brace - ortho spine not solar fabrication technician this week - fall precautions #MAC - follows with rheostat assembler in [place], Dr. Lou. Noted on chest CT. Unchanged and stable. #benign essential tremor continue carbidopa-levodopa #Seizure disorder continue Vimpat, Keppra, topiramate #mental health - continue paroxetine VTE ppx: SCDs, fall risk Dispo: med surg Admission and Anticipated Discharge Date Admission Date: 01/31/25 History of Present Illness Chief Complaint: fall Primary Care Provider: Ciro Chong PA-C Patient is a 79 y/o female with a PMHx of recurrent falls, benign essential tremor, MAC, seizures. She presented via EMS after a ground level fall at home using her walker, patient endorses HS on metal cabinet, denies LOC. Diagnostic imaging revealed acute mild superior endplate compression deformity of L2. She is being admitted for ambulatory dysfunction to have pt/ot evals. Patient seen at bedside with her daughter present. They have ring cameras at home in case of a fall but it was not recorded on the camera. She was walking in the kitchen with her walker, which she typically walks fast when using. She does not remember what caused her to fall but remembers hitting the back of her head on a metal cabinet. She denies LOC. She now has back pain, denies pain elsewhere. She tried to ambulate in the ED but was unsuccessful secondary to pain. She denies any dizziness or lightheadedness since the fall. She does have a history of MAC and follows with a rheostat assembler in [place], Dr. Dasha tejeda and she denies any changes. She denies any cough, congestion, rhinorrhea, dyspnea, chest pain, abd pain, n/v/d, edema. She is due for her evening medications and wishes to be full code. Allergies Allergy/AdvReac Type Severity Reaction Status Date / Time Iodinated Contrast Media Allergy Intermediate Hives Verified 09/25/21 20:09 iodine Allergy Mild HIVES Verified 09/20/21 13:32 morphine Allergy Unknown Unknown Verified 09/25/21 20:09 simvastatin Allergy Unknown Unknown Verified 09/25/21 20:09 prednisone AdvReac Mild GI UPSET Verified 09/20/21 13:32 Home Medications Medication Instructions Recorded Confirmed Type lacosamide 200 mg tablet (Vimpat) 200 mg PO BID ##0 11/29/12 01/31/25 History levetiracetam 500 mg tablet 1,000 mg PO BID #0 tabs 11/29/12 01/31/25 History valacyclovir 500 mg tablet 500 mg PO DAILY #0 tabs 11/29/12 01/31/25 History acetaminophen 500 mg tablet 1,000 mg PO Q6H PRN Pain 09/20/21 01/31/25 History donepezil 5 mg tablet 5 mg PO QAM 09/20/21 01/31/25 History carbidopa 25 mg-levodopa 100 mg 1.5 tab PO TID 10/15/24 01/31/25 History tablet (Sinemet) carbidopa ER 25 mg-levodopa 100 mg 1 tab PO QPM 10/15/24 01/31/25 History tablet,extended release tramadol 50 mg tablet 50 mg PO Q8H PRN pain #10 tabs 10/16/24 01/31/25 Rx hydroxyzine pamoate 25 mg capsule 25 mg PO BID PRN DIRECTED 01/31/25 01/31/25 History paroxetine HCl 40 mg tablet 40 mg PO QAM 01/31/25 01/31/25 History topiramate 25 mg tablet 50 mg PO HS 01/31/25 01/31/25 History Past Med/Surg History Problem List (Updated 01/31/25 @ 23:40 by Background Abram) Generalized weakness (Acute) Ambulatory dysfunction (Acute) Closed compression fracture of L2 vertebra (Acute) Acute back pain (Acute) Fall from standing (Acute) Pneumothorax (Acute) Fracture, rib (Acute) Elevated blood pressure reading Gait disorder Medical History Aortic valve insufficiency Hx of meningitis 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 Family History Other No pertinent family history Social History Smoking Status: Never smoker Second Hand Exposure: No; Do You Dip or Chew Tobacco: No; Hx Alcohol Use: Yes Alcohol type: hard liquor Alcohol Intake Frequency: Monthly or Less Hx Substance Use: No Preferred Language: Italian Communication Ability: Effective Hearing Ability: Normal Airport Ramp Agent Required: No Beliefs That Will Affect Care: None marital status: Current Living Situation: Alone Current Living Situation Comment: skilled nursing current occupational status: retired Other Information That Helps Us Care for You: No Feels Safe at Home: Yes Safety Concerns: Feels Safe At This Time Assistive Devices: Walker Review of Systems Review of Systems: See HPI Physical Exam Physical Exam: The patient is awake, alert and oriented 3, well developed and well nourished, normocephalic and atraumatic, in no acute distress. Non-toxic appearing. HEENT- EOMI, mucous membranes dry. Hearing grossly intact. Heart-normal S1 and S2. No murmurs, rubs or gallops. Lungs-clear bilaterally, no respiratory distress, no accessory muscle use. Abdomen-normal bowel sounds and soft. No ascites noted. Non-tender. Extremities- no clubbing, cyanosis, or edema. Rheumatologic-decreased range of motion. Psychiatric-normal affect. Musculoskeletal: mild tenderness to lumbar region No pain of lower extremities or deformities noted Results & Data Results & Data Vital Signs (Past 12 Hours) Vital Signs Temp Pulse Pulse Resp BP BP Pulse Ox 01/31/25 20:00 65 19 176/79 H 95 01/31/25 19:57 66 18 176/79 H 97 01/31/25 19:03 67 01/31/25 19:01 66 16 91 01/31/25 18:57 66 20 168/87 H 90 01/31/25 18:31 37.1 C 80 16 180/82 H 96 O2 Del Method 01/31/25 20:00 Room Air 01/31/25 19:57 Room Air 01/31/25 19:03 01/31/25 19:01 Room Air 01/31/25 18:57 Room Air 01/31/25 18:31 Room Air Laboratory Results reviewed CBC, CMP, PT/INR, troponin Diagnostic Findings reviewed head CT, CXR, chest CT, cervical spine CT, Ap ct Medications Administered ed- fentanyl mL 50 mcg, Zofran 4 Mg IV, Solu-Medrol 40 Mg IV, Benadryl 25 Mg IV ECG Additional Comments: ordered Code Status & VTE Plan Code Status dnr/[id number] Supervising Physician Co-Signing Physician Notes Attending addendum: I have physically seen this patient, have supervised the JESSE's activities, and agree with the H&P unless as otherwise noted. Assessment and Plan: The patient is a 79-year-old female with past med history including recurrent falls, benign essential tremor, MAC, and seizures, who presents to the emergency department after a ground-level fall at home while using her walker. She denies loss of consciousness with head trauma. Workup including CT scan of abdomen pelvis revealed a mild L2 superior endplate compression deformity. She is admitted to the hospital due to ambulatory dysfunction, to have PT and OT evaluations. Ground-level fall/ambulatory dysfunction/acute mild superior endplate compression deformity of L2- Continues to use walker at baseline CT scan of head shows chronic small vessel disease CT scan of chest shows mild reticulonodular disease CT scan cervical spine is negative CT scan of abdomen pelvis shows a mild superior endplate compression deformity of L2 Lidoderm patch Acetaminophen 650 mg by mouth every 6 hours as needed for mild pain or fever Toradol 10 mg IV every 6 hours as needed for moderate pain Dilaudid for breakthrough pain K-pad use as needed Consult PT/OT Every 4 hours neurochecks x 24 hours as noted due to mild head trauma Fall precautions MAC- Follows with [place] pulmonology, Dr. Lou Stable and unchanged Seizure disorder- Continue Vimpat, Keppra and topiramate Benign essential tremor- Continue carbidopa levodopa Mental health- Continue paroxetine PG Care Time/CCT Total # of Minutes Spent Total Time Spent with Patient: Total time spent is greater than 50% in coordination of care (as documented) at patient's floor/unit and/or counseling patient: Coding Level of Care Code 61172 INT INP/OBS CARE 3/75MIN Diagnoses Fall from standing W19.XXXA Closed compression fracture of L2 vertebra S32.020A Ambulatory dysfunction R26.2
[2025-01-31] MEDS: ACETAMINOPHEN 1,000 MG/100 ML VIAL IV STA (21:49)
[2025-01-31] MEDS: LIDOCAINE 5% 1 PATCH TD STA (21:50)
--- NOTE | 2025-01-31 21:57 | XRay Report ---
EXAM: XR chest 1V portable CLINICAL HISTORY: Trauma TECHNIQUE: An X-ray image of the chest is obtained in AP projection. COMPARISON: No prior studies are available for comparison. FINDINGS: Pulmonary Parenchyma: Coarse reticular shadowing, seen bilaterally, likely represents changes associated with COPD. No evidence of consolidation, collapse, or focal opacities. A small well-defined opacity noted in the right upper zone is likely of a benign etiology. No evidence of pleural effusion or pleural thickening. Heart and Mediastinum: Heart size is at the upper normal limit. No mediastinal widening or masses. No hilar or mediastinal lymphadenopathy. Bony Thorax: Bony thorax appears intact without fractures or deformities. Mild degenerative changes are noted. Bone density is mildly reduced. Soft Tissues: Soft tissues overlying the chest wall are unremarkable. IMPRESSION: 1. Bilateral COPD changes. 2. No acute cardiopulmonary abnormalities are identified. 3. No acute osseous pathology is noted. Electronically signed by Forest Hernandez 01-31-2025 9:29 PM
[2025-01-31] MEDS ORDERED: DOCUSATE SODIUM 100 MG CAP PO PRN (23:43)
[2025-01-31] MEDS ORDERED: HYDROmorphone INJ 0.5 MG/0.5 ML SYR IV PRN (23:43)
[2025-01-31] MEDS ORDERED: ACETAMINOPHEN 325 MG TAB PO PRN (23:43)
[2025-01-31 23:44] LABS: Appearance Urine Cloudy (Clear); Bacteria Urine Automated 4+ (None Seen); Cast Urine Automated 0-2 /lpf (0-2); Epithelial Cell Urine Auto 0-2 /hpf (0-2); Glucose Urine UA Negative (Negative)
[2025-02-01] MEDS: LACOSAMIDE 50 MG TABLET PO SCH (00:21)
[2025-02-01] MEDS: levETIRAcetam 500 MG TAB PO SCH (00:22)
[2025-02-01] MEDS: CARBIDOPA/LEVODOPA 25/100MG EXT REL TAB PO SCH (00:45)
[2025-02-01] MEDS: HYDROmorphone INJ 1 MG/ML SYRINGE IV PRN ×2 (00:47→12:07)
[2025-02-01] MEDS: KETOROLAC TROMETHAMINE 15 MG/ML VIAL IV PRN (05:41)
[2025-02-01 06:30] LABS: Hematocrit (blood only) 43.4 % (37.0-47.0); Hemoglobin 14.8 g/dl (12.0-16.0); Immature Granulocytes # (auto) 0.02 K/uL (0.01-0.20); Immature Granulocytes % (auto) 0.3 %; Mean Corpuscular Hemoglobin 33.9 pg (25.0-34.0); Mean Corpuscular Volume 99.3 fL (80.0-100.0); Platelet Count 246 K/uL (130-400); RDW Standard Deviation 46.8 fL (36.4-46.3); Red Blood Count 4.37 M/uL (4.20-5.40); White Blood Count 7.44 K/ul (4.8-10.8)
[2025-02-01 06:48] LABS: Anion Gap 10.0 (3-11); Blood Urea Nitrogen 19.0 mg/dl (6-23); Calcium 9.4 mg/dl (8.6-10.3); Carbon Dioxide 24.0 mmol/L (21-32); Chloride 105.0 mmol/L (98-107); Creatinine Clr Calc Pharmacy 47.2 ml/min; Glucose 122.0 mg/dl (70-99(Fasting)); Potassium 4.2 mmol/L (3.5-5.1); Sodium 139.0 mmol/L (136-145)
[2025-02-01] MEDS: CARBIDOPA/LEVODOPA 25/100MG TAB PO SCH (06:59)
[2025-02-01] MEDS: DONEPEZIL HCL 5 MG TAB PO SCH (07:20)
[2025-02-01] MEDS: REMOVE LIDODERM PATCH ONE (07:22)
[2025-02-01] MEDS ORDERED: HYDROmorphone INJ 0.5 MG/0.5 ML SYR IV PRN (11:08)
[2025-02-01] MEDS: CALCITONIN SALMON NA 200 IU/AC 3.7 ML BTL SCH (12:16)
[2025-02-01] MEDS: ACETAMINOPHEN 500 MG TAB PO SCH (13:42)
--- NOTE | 2025-02-01 14:52 | Hospitalist Progress Note ---
Date of Service February 01, 2025 Assessment & Plan (1) Fall from standing: (2) Closed compression fracture of L2 vertebra: (3) Ambulatory dysfunction: Plan Patient is a 79 y/o female with a PMHx of recurrent falls, benign essential tremor, MAC, seizures. She presented via EMS after a ground level fall at home using her walker, patient endorses head strike on metal cabinet, denies LOC, no blood thinner use. Diagnostic imaging revealed acute mild superior endplate compression deformity of L2. She was admitted for ambulatory dysfunction to have PT/OT evals given she was unable to ambulate in the ED secondary to pain. #Fall | Ambulatory dysfunction - uses walker at baseline. Diagnostic imaging revealed acute mild superior endplate compression deformity of L2 - Pain regimen adjusted: Scheduled Tylenol 1000 mg TID, Toradol 10 mg IV Q6H PRN, Dilaudid 0.25/0.5 mg IV Q4H PRN moderate/severe pain; allergy to morphine - Continue Lidoderm patch, K pad prn - Start calcitonin NS daily - PT/OT consulted - q4h neurochecks x24 hours with head strike - consider orthotics consult for spine brace - fall precautions #MAC - follows with pyrotechnic mixer in [place], Dr. Lou. Noted on chest CT. Unchanged and stable. #Benign essential tremor continue carbidopa-levodopa #Seizure disorder continue Vimpat, Keppra, topiramate #Mental health - continue paroxetine VTE ppx: SCDs, fall risk Dispo: continued inpatient stay for pain control and PT/OT evaluations Adjusted pain regimen Started calcitonin NS Admission and Anticipated Discharge Date Admission Date: January 31, 2025 Supervising Physician Co-Signing Physician Notes chart reviewed, case d/w S KLARISSA Louis. as above Subjective Patient seen and evaluated at bedside. She reports "my back pain is excruciating." She describes that her back pain is more painful than her 4 natural childbirths. She reports a minimal appetite secondary to her acute pain. She denies any abdominal pain, nausea, vomiting. She did get a fair amount of sleep overnight. We discussed adjusting her pain regimen. No additional complaints or concerns at this time. Physical Exam Physical Exam: General: No acute distress, nondiaphoretic, well-developed, well-nourished. Skin: Warm, dry. No rashes or peripheral edema noted. Cardiac: Regular rate and rhythm without murmurs gallops or rubs. Pulm: Clear to auscultation bilaterally without wheezes, rales or rhonchi. Normal respiratory effort. 98% on room air. Abdominal: Soft, nontender, nondistended. Bowel sounds present. Neuro: A&O x3. No focal neurological deficits. Results & Data Results & Data Vital Signs (Past 12 Hours) Vital Signs Temp Pulse Resp BP Pulse Ox O2 Del Method 02/01/25 07:34 98.1 F 68 18 143/74 H 98 Room Air Laboratory Results Reviewed CBC with differential Reviewed BMP Reviewed UA/urine culture PG Care Time/CCT Total # of Minutes Spent Total Time Spent with Patient: Total time spent is greater than 50% in coordination of care (as documented) at patient's floor/unit and/or counseling patient: Coding Level of Care Code 51480 SUB INP/OBS CARE 3/50MIN Diagnoses Fall from standing W19.XXXA Closed compression fracture of L2 vertebra S32.020A Ambulatory dysfunction R26.2
[2025-02-01] MEDS: TOPIRAMATE 50 MG TAB PO SCH (20:21)
[2025-02-01] MEDS: LIDOCAINE 5% 1 PATCH TD SCH (20:21)
--- NOTE | 2025-02-01 22:32 | Electrocardiogram Report ---
Test Reason : Blood Pressure : */* mmHG Vent. Rate : 63 BPM Atrial Rate : 63 BPM P-R Int : 198 ms QRS Dur : 82 ms QT Int : 466 ms P-R-T Axes : 70 22 68 degrees QTcB Int : 476 ms Normal sinus rhythm Nonspecific T wave abnormality Abnormal ECG When compared with ECG of 15-Oct-2024 11:13, No significant change was found Confirmed by Eulogio Ellis ([id number]) on 02/01/2025 10:32:28 PM Referred By: REFERRED SELF Confirmed By: Eulogio Ellis
[2025-02-02] MEDS: REMOVE LIDODERM PATCH SCH (08:30)
--- NOTE | 2025-02-02 11:53 | Hospitalist Progress Note ---
"Date of Service February 02, 2025 Assessment & Plan (1) Fall from standing: (2) Closed compression fracture of L2 vertebra: (3) Ambulatory dysfunction: Plan Patient is a 79 y/o female with a PMHx of recurrent falls, benign essential tremor, MAC, seizures. She presented via EMS after a ground level fall at home using her walker, patient endorses head strike on metal cabinet, denies LOC, no blood thinner use. Diagnostic imaging revealed acute mild superior endplate compression deformity of L2. She was admitted for ambulatory dysfunction to have PT/OT evals given she was unable to ambulate in the ED secondary to pain. #Fall | Ambulatory dysfunction - uses walker at baseline. Diagnostic imaging revealed acute mild superior endplate compression deformity of L2 - Pain regimen further adjusted: Scheduled Tylenol 1000 mg TID, Toradol 10 mg IV Q6H PRN, Dilaudid 0.5 mg/1.0 IV Q4H PRN moderate/severe pain; allergy to morphine - Continue Lidoderm patch, K pad prn, calcitonin NS daily - PT/OT consulted - awaiting PT eval, OT recommends short term rehab - consider orthotics consult for spine brace - fall precautions #Acute UTI - urine culture growing E. coli, sensitivities pending. Started Ceftriaxone IV #MAC - follows with irrigator overhead in [place], Dr. Lou. Noted on chest CT. Unchanged and stable. #Benign essential tremor continue carbidopa-levodopa #Seizure disorder continue Vimpat, Keppra, topiramate #Mental health - continue paroxetine VTE ppx: SCDs, fall risk Dispo: continued inpatient stay for pain control and PT/OT evaluations Adjusted pain regimen Started Ceftriaxone IV Admission and Anticipated Discharge Date Admission Date: January 31, 2025 Supervising Physician Co-Signing Physician Notes chart reviewed, case d/w S KLARISSA Louis. as above Subjective Patient seen and evaluated at bedside. She reports that her back is still very painful. She did sleep soundly overnight. She ate all of her dinner last night but did not have much of her breakfast today due to reduced appetite from pain. She has not been seen by PT yet; OT evaluated her yesterday and recommends short term rehab. We discussed further adjusting her pain regimen. No further complaints or concerns at this time. Physical Exam Physical Exam: General: No acute distress, nondiaphoretic, well-developed, well-nourished. Skin: Warm, dry. No rashes or peripheral edema noted. Cardiac: Regular rate and rhythm without murmurs gallops or rubs. Pulm: Clear to auscultation bilaterally without wheezes, rales or rhonchi. Normal respiratory effort. 94% on room air. Abdominal: Soft, nontender, nondistended. Bowel sounds present. Neuro: A&O x3. No focal neurological deficits. Results & Data Results & Data Vital Signs (Past 12 Hours) Vital Signs Temp Pulse Resp BP Pulse Ox O2 Del Method 02/02/25 07:24 98.1 F 62 18 146/76 H 94 Room Air PG Care Time/CCT Total # of Minutes Spent Total Time Spent with Patient: Total time spent is greater than 50% in coordination of care (as documented) at patient's floor/unit and/or counseling patient: Coding Level of Care Code 32212 SUB INP/OBS CARE 3/50MIN Diagnoses Fall from standing W19.XXXA Closed compression fracture of L2 vertebra S32.020A Ambulatory dysfunction R26.2"
[2025-02-02] MEDS: cefTRIAXone SODIUM 2,000 MG/50 ML BAG IV SCH (12:26)
[2025-02-02] MEDS: HYDROmorphone INJ 1 MG/ML SYRINGE IV PRN (14:09)
[2025-02-03 08:04] LABS: Hematocrit (blood only) 40.1 % (37.0-47.0); Hemoglobin 13.4 g/dl (12.0-16.0); Mean Corpuscular Hemoglobin 33.5 pg (25.0-34.0); Mean Corpuscular Volume 100.3 fL (80.0-100.0); Platelet Count 260 K/uL (130-400); RDW Standard Deviation 47.6 fL (36.4-46.3); Red Blood Count 4.00 M/uL (4.20-5.40); White Blood Count 9.14 K/ul (4.8-10.8)
[2025-02-03 09:02] LABS: Anion Gap 7.0 (3-11); Blood Urea Nitrogen 34.0 mg/dl (6-23); Calcium 9.1 mg/dl (8.6-10.3); Carbon Dioxide 25.0 mmol/L (21-32); Chloride 107.0 mmol/L (98-107); Glucose 109.0 mg/dl (70-99(Fasting)); Potassium 4.3 mmol/L (3.5-5.1); Sodium 139.0 mmol/L (136-145)
[2025-02-03 09:10] LABS: Creatinine Clr Calc Pharmacy 47.2 ml/min
--- NOTE | 2025-02-03 10:06 | Hospitalist Progress Note ---
Date of Service February 03, 2025 Assessment & Plan (1) Fall from standing: (2) Closed compression fracture of L2 vertebra: (3) Ambulatory dysfunction: Plan Patient is a 79 y/o female with a PMHx of recurrent falls, benign essential tremor, MAC, seizures. She presented via EMS after a ground level fall at home using her walker, patient endorses head strike on metal cabinet, denies LOC, no blood thinner use. Diagnostic imaging revealed acute mild superior endplate compression deformity of L2. She was admitted for ambulatory dysfunction to have PT/OT evals given she was unable to ambulate in the ED secondary to pain. #Fall | Ambulatory dysfunction - uses walker at baseline. Diagnostic imaging revealed acute mild superior endplate compression deformity of L2 - Pain regimen further adjusted: Scheduled Tylenol 1000 mg TID, Toradol 10 mg IV Q6H PRN, Dilaudid 0.5 mg/1.0 IV Q4H PRN moderate/severe pain; allergy to morphine - Continue Lidoderm patch, K pad prn, calcitonin NS daily - PT/OT consulted - awaiting PT eval, OT recommends short term rehab - Orthotics consulted for TSLO brace - fall precautions #Acute UTI - urine culture with E. coli. Initially started on Ceftriaxone, but now switched to Augmentin BID - continue #MAC - follows with senior adults director in [place], Dr. Lou. Noted on chest CT. Unchanged and stable. #Benign essential tremor continue carbidopa-levodopa #Seizure disorder continue Vimpat, Keppra, topiramate #Mental health - continue paroxetine VTE ppx: SCDs, fall risk Dispo: continued inpatient stay for pain control and PT/OT evaluations Consulted orthotics Discontinued ceftriaxone Started Augmentin Admission and Anticipated Discharge Date Admission Date: February 02, 2025 Supervising Physician Co-Signing Physician Notes chart reviewed, case d/w S KLARISSA Louis. as above Subjective Patient seen and evaluated at bedside. She reports "this fracture is horrible. It hurts!" She did sleep well again overnight. She states she notices the most pain relief from the lidocaine patch. She tried sitting in the bedside chair earlier, but went back to the bed because it was more comfortable. We discussed having orthotics see her for a possible brace, though not sure how comfortable she will find this with her small frame. She has not been seen by PT yet. She is due for more pain medication now, notified RN. No additional complaints or concerns at this time. Physical Exam Physical Exam: General: No acute distress, nondiaphoretic, well-developed, well-nourished. Skin: Warm, dry. No rashes or peripheral edema noted. Cardiac: Regular rate and rhythm without murmurs gallops or rubs. Pulm: Clear to auscultation bilaterally without wheezes, rales or rhonchi. Normal respiratory effort. 96% on room air. Abdominal: Soft, nontender, nondistended. Bowel sounds present. Neuro: A&O x3. No focal neurological deficits. Results & Data Results & Data Vital Signs (Past 12 Hours) Vital Signs Temp Pulse Resp BP Pulse Ox O2 Del Method 02/03/25 07:29 97.9 F 75 16 145/78 H 96 Room Air 02/02/25 23:20 97.9 F 70 16 126/70 92 Room Air Laboratory Results Reviewed CBC Reviewed BMP PG Care Time/CCT Total # of Minutes Spent Total Time Spent with Patient: Total time spent is greater than 50% in coordination of care (as documented) at patient's floor/unit and/or counseling patient: Coding Level of Care Code 62986 SUB INP/OBS CARE 3/50MIN Diagnoses Fall from standing W19.XXXA Closed compression fracture of L2 vertebra S32.020A Ambulatory dysfunction R26.2
[2025-02-03] MEDS: AMOXICILLIN/CLAVULANATE 875 MG TAB PO SCH (12:40)
[2025-02-03] MEDS: ONDANSETRON INJ 2 MG/ML 2 ML VIAL IV PRN (17:38)
--- NOTE | 2025-02-04 08:02 | Hospitalist Progress Note ---
"Date of Service February 04, 2025 Assessment & Plan (1) Fall from standing: (2) Closed compression fracture of L2 vertebra: (3) Ambulatory dysfunction: Plan Patient is a 79 y/o female with a PMHx of recurrent falls, benign essential tremor, MAC, seizures, parkinsons. She presented via EMS after a ground level fall at home using her walker, patient endorses head strike on metal cabinet, denies LOC, no blood thinner use. Diagnostic imaging revealed acute mild superior endplate compression deformity of L2. She was admitted for ambulatory dysfunction to have PT/OT evals given she was unable to ambulate in the ED secondary to pain. #Fall | Ambulatory dysfunction - uses walker at baseline but reported ground level fall walking with walker and striking head on cabinet but denied LOC, no blood thinner use at baseline. CTAP noted acute mild superior endplate compression deformity of L2 Admission for pain control/ambulatory dysfunction Pain control - Tylenol 1gm TID, lidocaine patch, calcitonin nasal spray, toradol IV prn, dilaudid 0.5mg-1mg for mod-severe pain (allergy to morphine), Reporting NO change in pain from admission - Added heating pad, oxycodone - Trial solu-medrol 40mg IV x 1, pepcid IV BID for GI proph Bowel regimen - miralax daily, changing colace to BID scheduled. Passing lots of gas 02/04, adding suppository if needed. Remains on abx for +UA/culture Orthotics consulted -- to bring TLSO brace today Checking lumbar spine xray for completeness, labs for today (notable MCV >100 --> check B12/folate/TSH for completeness) as well as Vit D given fx/ALP elevation PT/OT rec rehab #Acute UTI - +UA on admission but no overt urinary sx however could have contributing to fall above Urine cx w/ Ecoli. 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 Lou. Noted on chest CT. Unchanged and stable. #Benign essential tremor, Parkinsons continue carbidopa-levodopa #Seizure disorder continue Vimpat, Keppra, topiramate #Mental health - continue paroxetine VTE ppx: SCDs, fall risk . Lovenox SQ once daily added 8/4 given continued inpatient stay. No leg edema/pulses present but will monitor for issues Dispo: PT/OT rec for rehab - CM to follow for referrals. Working on continued pain control/bowel regimen (added trial steroids/pepcid IV) [facility] 02/05 vs 02/06 pending bowels/response to steroids. Orthotics to provide brace today and hopefully additional comfort w/ ambulation Admission and Anticipated Discharge Date Admission Date: February 02, 2025 Supervising Physician Co-Signing Physician Notes The patient was not seen by me. The chart was reviewed. Case discussed with MITCHEL Ojeda. Agree with assessment and plan Subjective Eval this morning, sitting up in bed. Appears uncomfortable. Reports her back pain is essentially unchanged from admission. Left lower back pain, paraspinal tenderness. Had been using ice, discussed heat - agreeable. Will trial solu-medrol w/ pepcid to prevent GI upset, consideration for muscle relaxer or low dose oxycodone, intolerant to morphine. Passing lots of gas, no BM. Continues bowel regimen, discussed constipation can make things worse. Physical Exam Physical Exam: General: 79yo female sitting up in bed, NAD but reports ongoing pain to lower back/left paraspinal muscles, difficulty getting up into seated position in bed but assisted x1 to bathroom, slightly unsteady gait HEENT: head atraumatic, normocephalic, mmm, trachea midline Resp: even/unlabored, no wheezing/rales, 97% on RA CV: RRR, no significant m/r/g, no pitting edema GI: +BS, soft, slight distended but BS throughout, no overt tenderness no wright, ?L CVA tenderness vs paraspinal muscle tenderness MSK/Neuro: +tenderness to palpation lumbar spine/L paraspinal muscles, slight decreased flexion/extension L foot with dorsiflexion/plantarflexion compared to the right Psych: AOx3, cooperative with exam \\ Results & Data Results & Data Vital Signs (Past 12 Hours) Vital Signs Temp Pulse Resp BP Pulse Ox O2 Del Method 02/03/25 23:00 36.5 C 66 18 175/76 H 94 Room Air PG Care Time/CCT Total # of Minutes Spent Total Time Spent with Patient: Total time spent is greater than 50% in coordination of care (as documented) at patient's floor/unit and/or counseling patient: Coding Level of Care Code 53856 SUB INP/OBS CARE 350MIN Diagnoses Fall from standing W19.XXXA Closed compression fracture of L2 vertebra S32.020A Ambulatory dysfunction R26.2"
[2025-02-04] MEDS: POLYETHYLENE (MIRALAX) 17 GM PACK PO SCH ×2 (09:25→20:06)
--- NOTE | 2025-02-04 10:47 | XRay Report ---
XR lumbar spine 2-3V HISTORY: 79 years-old Female fall, low back pain COMPARISON: CT abdomen and pelvis 01/31/2025 TECHNIQUE: 3 views of the lumbar spine FINDINGS: Transitional lumbosacral anatomy redemonstrated. There is an acute L1 compression deformity with 2 mm retropulsion. This demonstrates progressively worsened vertebral body height loss compared to the pr ior CT now of approximately 30%. No additional acute fracture or subluxation. [id number] multil evel intervertebral disc space narrowing, and spondylitic spurring with moderate facet arthrosis. Dem ineralized appearance of the bones. Atherosclerosis of the aorta. Mild sigmoidal thoracolumbar scoliosis. IMPRESSION: Transitional lumbosacral anatomy with acute L1 compression deformity as above. ACT 112: Negative or not required by law. The above report was generated using voice recognition software. It may contain grammatical, syntax o r spelling errors. Electronically signed by: Doug Wan M.D. 02/04/2025 10:46 AM
[2025-02-04] MEDS: FAMOTIDINE 20MG IV PUSH 20 MG/5 ML SYR IV SCH (11:12)
[2025-02-04 11:46] LABS: Alanine Aminotransferase 3.0 U/L (7-52); Albumin Globulin Ratio 1.2 (0.9-2); Alkaline Phosphatase 114.0 U/L (34-104); Anion Gap 7.0 (3-11); Bilirubin,Total 0.6 mg/dl (0.2-1.0); Blood Urea Nitrogen 22.0 mg/dl (6-23); Calcium 9.6 mg/dl (8.6-10.3); Carbon Dioxide 26.0 mmol/L (21-32); Chloride 105.0 mmol/L (98-107); Creatinine Clr Calc Pharmacy 42.8 ml/min; Globulin 3.5 gm/dl (2.5-4.0); Glucose 118.0 mg/dl (70-99(Fasting)); Potassium 4.3 mmol/L (3.5-5.1); Sodium 138.0 mmol/L (136-145); Total Protein 7.6 gm/dl (6.0-8.3)
[2025-02-04 11:58] LABS: Thyroid Stimulating Hormone 1.404 uIu/ml (0.300-4.500)
[2025-02-04 13:05] LABS: Folate (Folic Acid),Ser orPlas 10.01 ng/ml (>5.38)
[2025-02-04 13:06] LABS: Vitamin B12 106.0 pg/ml (180-914)
[2025-02-04] MEDS: CHOLECALCIFEROL 25 MCG (1000 UNITS) TAB PO SCH (14:28)
[2025-02-04] MEDS: DOCUSATE SODIUM 100 MG CAP PO SCH (14:29)
[2025-02-04] MEDS: CYANOCOBALAMIN 1000 MCG/ML VIAL IM SCH (14:29)
[2025-02-04 18:55] LABS: Appearance Urine Clear (Clear); Bacteria Urine Automated None Seen (None Seen); Cast Urine Automated 0-2 /lpf (0-2); Epithelial Cell Urine Auto 0-2 /hpf (0-2); Glucose Urine UA Negative (Negative); WBC Urine Automated 0-5 /hpf (0-5)
[2025-02-04] MEDS: SENNA 8.6 MG TAB PO SCH (20:07)
[2025-02-04] MEDS: MELATONIN 3 MG TAB PO PRN (21:56)
--- NOTE | 2025-02-05 08:29 | Hospitalist Progress Note ---
"Date of Service February 05, 2025 Assessment & Plan (1) Fall from standing: (2) Closed compression fracture of L2 vertebra: (3) Ambulatory dysfunction: (4) Vitamin B12 deficiency: (5) Vitamin D deficiency: Plan Patient is a 79 y/o female with a PMHx of recurrent falls, benign essential tremor, MAC, seizures, parkinsons presented via EMS after a ground level fall at home using her walker, -Patient endorsed head strike on metal cabinet, denies LOC, no blood thinner use. Diagnostic imaging revealed acute mild superior endplate compression deformity of L2. She was admitted for ambulatory dysfunction to have PT/OT evals given she was unable to ambulate in the ED secondary to pain. Admission for pain control/ambulatory dysfunction #Fall | Ambulatory dysfunction #Lumbar Compression deformity/acute compression deformity 2nd to fall/trauma - uses walker at baseline but reported ground level fall walking with walker and striking head on cabinet but denied LOC, no blood thinner use at baseline. CTAP noted acute mild superior endplate compression deformity of L2 Pain control - APAP 1gm TID, lidoderm patch, calcitonin nasal spray. Dilaudid/toradol IV available prn for breakthrough -Added oxycodone PO q4h prn -Added Solu-medrol 40mg IV BID, pepcid IV for GI proph, no reflux reported Orthotics brought TLSO brace - patient reporting not helpful/too big/bulky - can see if able to make adjustments Xray lumbar spine 02/04 obtained and noted to have Transitional lumbosacral anatomy with acute L1 compression deformity as above Initially some improvement in pain with steroids/oxycodone 02/04, but concerns by nursing for confusion w/ 5mg oxycodone and decreased to 2.5mg but alert/oriented for myself and ongoing pain, difficulty/worsened pain and weakness LLE w/ standing and have asked nursing to provide Toradol IV, oxycodone 5mg PO x 1 for this morning Given radicular symptoms, trauma and weakness w/ dorsiflexion/plantar flexion --> obtain MRI lumbar spine for further eval Continue steroids for now Bowel regimen - suppository added if needed, discussed constipation can make back pain worse as well Therapy rec for rehab --> CM notified and to follow/send referrals. #Acute UTI - +UA on admission but no overt urinary sx however could have contributing to fall above. Urine cx ecoli and sensitive and was provided Ceftriaxone IV x 1 and converted to Augmentin BID to complete course (day 4/7 on 02/05, EOT 02/08). IVF x 500cc ordered for slight dehydration, suspect contributing to worsened constipation w/ above Monitor for any issues #B12 deficiency- level checked w/ prior lows and MCV >100 B12 LOW at 106 --> 1000mcg IM daily ordered while inpatient (day 2) - rx PO daily at md recommended. Suspect contributes to forgetfullness as well as gait abn w/ underlying parkinsonism #Vitamin D deficiency- level checked w/ elevated ALP and acute fracture Vit D level LOW 20.4 Added PO replacement started 25mcg PO daily - would continue at [facility], outpatient PCP follow up for repeat testing/ongoing replacement outpatient #MAC Follows with gas treater in [place], Dr. Lou. Noted on chest CT. Unchanged and stable. 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 #Mental health Continue paroxetine VTE ppx: SCDs, fall risk. Lovenox SQ once daily added 02/04 given continued inpatient stay. No leg edema/pulses present but will monitor for issues. Pepcid continued for GI proph Dispo: continued inpatient stay for pain control, have ordered MRI lumbar spine for eval given ongoing radicular sx in setting acute compression deformity and can consult ortho spine pending results PT/OT rec for rehab --> ref to [facility] per DM note 02/04 and to follow [facility] next 24-48hr pending response to treatment, MRI results and insurance authorization Admission and Anticipated Discharge Date Admission Date: February 02, 2025 Supervising Physician Co-Signing Physician Notes The patient was not seen by me. The chart was reviewed. Case discussed with MITCHEL Ojeda. Agree with assessment and plan Subjective Eval this morning. Sitting in bed. Passing gas, no bowel movement. Reports pain WORSe today on her left lower back, radiation to leg/weakness with standing. Given lumbar spine xray, discussed imaging. Will have nursing provide toradol IV, oxycodone but 5mg dose which was given x 1 yesterday but concerns for confusion however patient alert/oriented to place, knows at the hospital, year 2024, month February and will continue delirium prevention. No epigastric/reflux pain, remains on steroids for now No CP/SOB. Questions/concerns addressed at this time. Physical Exam 2 Physical Exam: General: 79yo female laying in bed, reporting WORSE pain to her LEFT low back, LLE w/ decreased dorsiflexion/plantar flexion compared to the right (reports increased weakness w/ standing) HEENT: head atraumatic, normocephalic, mmm, trachea midline Resp: even/unlabored, no wheezing/rales, 97% on RA CV: RRR, no significant m/r/g, no pitting edema GI: +BS, soft, slight distended but BS throughout, no overt tenderness no wright, voiding spontaneously MSK/Neuro: +tenderness to palpation lumbar spine/L paraspinal muscles, slight decreased flexion/extension L foot with dorsiflexion/plantarflexion compared to the right not confused, answering questions appropriately, no slurred speech/facial droop Psych: AOx3 - alert to hospital/month/year, no confused, cooperative with exam Results & Data Results & Data Vital Signs (Past 12 Hours) Vital Signs Temp Pulse Resp BP BP Pulse Ox O2 Del Method 02/05/25 08:13 36.6 C 67 15 168/71 H 97 Room Air 02/04/25 21:55 36.7 C 69 16 178/71 H 97 Room Air Laboratory Results 02/05/25 08:23 02/05/25 08:23 Mag 2.1 UA w/ trace ketones, trace blood, 11-20 RBC, no bacteria Diagnostic Findings XR lumbar spine 2-3V HISTORY: 79 years-old Female fall, low back pain COMPARISON: CT abdomen and pelvis 01/31/2025 TECHNIQUE: 3 views of the lumbar spine FINDINGS: Transitional lumbosacral anatomy redemonstrated. There is an acute L1 compression deformity with 2 mm retropulsion. This demonstrates progressively worsened vertebral body height loss compared to the prior CT now of approximately 30%. No additional acute fracture or subluxation. Pygb-ym-lobmyhsi multilevel intervertebral disc space narrowing, and spondylitic spurring with moderate facet arthrosis. Demineralized appearance of the bones. Atherosclerosis of the aorta. Mild sigmoidal thoracolumbar scoliosis. IMPRESSION: Transitional lumbosacral anatomy with acute L1 compression deformity as above. ACT 112: Negative or not required by law. The above report was generated using voice recognition software. It may contain grammatical, syntax or spelling errors. Electronically signed by: Doug Wan M.D. 02/04/2025 10:46 AM Dictated: 02/04/25 1043 Transcribed: 02/04/25 1043 PG Care Time/CCT Total # of Minutes Spent Total Time Spent with Patient: Total time spent is greater than 50% in coordination of care (as documented) at patient's floor/unit and/or counseling patient: Coding Level of Care Code 11997 SUB INP/OBS CARE 3/50MIN Diagnoses Fall from standing W19.XXXA Closed compression fracture of L2 vertebra S32.020A Ambulatory dysfunction R26.2 Vitamin B12 deficiency E53.8 Vitamin D deficiency E55.9"
[2025-02-05] MEDS: ENOXAPARIN INJ 30 MG/0.3 ML SYR SQ SCH (08:56)
[2025-02-05 09:39] LABS: Hematocrit (blood only) 41.6 % (37.0-47.0); Hemoglobin 14.2 g/dl (12.0-16.0); Mean Corpuscular Hemoglobin 33.6 pg (25.0-34.0); Mean Corpuscular Volume 98.3 fL (80.0-100.0); Platelet Count 335 K/uL (130-400); RDW Standard Deviation 45.6 fL (36.4-46.3); Red Blood Count 4.23 M/uL (4.20-5.40); White Blood Count 8.62 K/ul (4.8-10.8)
[2025-02-05 09:55] LABS: Anion Gap 8.0 (3-11); Blood Urea Nitrogen 27.0 mg/dl (6-23); Calcium 9.9 mg/dl (8.6-10.3); Carbon Dioxide 24.0 mmol/L (21-32); Chloride 104.0 mmol/L (98-107); Creatinine Clr Calc Pharmacy 43.8 ml/min; Glucose 105.0 mg/dl (70-99(Fasting)); Magnesium 2.1 mg/dl (1.7-2.4); Potassium 4.3 mmol/L (3.5-5.1); Sodium 136.0 mmol/L (136-145)
[2025-02-05] MEDS: SODIUM CHLORIDE 0.9% 500 ML IV SCH (11:37)
[2025-02-05] MEDS: HYDROmorphone INJ 0.5 MG/0.5 ML SYR IV PRN (13:17)
--- NOTE | 2025-02-05 13:41 | Magnetic Resonance Report ---
MR lumbar spine wo con CLINICAL HISTORY: 79 years-old Female with fall, trauma, LLE radiculopathy. Acute low back pain with recent fall. COMPARISON: Lumbar spine radiographs 02/04/2025, CT abdomen and pelvis 01/31/2025, chest CT 10/15/2024 TECHNIQUE: Multiplanar, multi sequence MRI of the lumbar spine was performed without intravenous cont rast. FINDINGS: Comparing this exam to the prior chest, abdomen and pelvis CTs there appears to be 6 nonrib-bearing l umbar-type vertebral segments. The L6-S1 disc space will be described on axial image 34 series 6. Ple ase note that this numbering may vary from the prior CT interpretations. Acute appearing L2 compression deformity/burst fracture with 3 mm retropulsion demonstrates approxima tely 30% superior endplate height loss which as previously discussed has progressed compared to the CT study. There is moderate marrow with adjacent paravertebral edema. No additional acute fr acture, subluxation or significant marrow edema. No endplate erosions. There is no T1 fracture line or marrow replacement process. The conus terminates at L1-L2. The visualized spinal cord and cauda equina are normal. The intra-abdominal structures are grossly unremarkable. Study is motion degraded . Anterior bridging osteophytosis of the lower thoracic spine. Mild multilevel intervertebral disc sp edie narrowing, spondylitic spurring and moderate facet arthrosis. T12-L1: No central canal or neural foraminal stenosis. L1-L2: Mild spondylitic spurring with small posterior annular disc bulge and moderate facet arthrosi s. 3 mm retropulsion of the L2 fracture. Central canal is patent. Minimal bilateral neural foraminal stenosis, left greater than right. L2-L3: Moderate facet arthrosis. No central canal or neural foraminal stenosis. L3-L4: Mild intervertebral disc space narrowing and spondylotic spurring. Small circumferential jayden lar disc bulge. 3 mm anterolisthesis secondary to chronic moderate to severe facet arthrosis. Mild po sterior disc space uncovering. No central canal or neural foraminal stenosis. L4-L5: Moderate to severe facet arthrosis. No central canal or neural foraminal stenosis. L5-S1: Moderate intervertebral disc space narrowing with small circumferential disc osteophyte compl ex. Moderate to severe facet arthrosis. No central canal or neural foraminal stenosis. L6-S1: No central canal or neural foraminal narrowing. IMPRESSION: 1. 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 2. Mild acute L2 compression deformity/burst fracture with mild retropulsion is unchanged from yester day's radiographs, however as previously described the vertebral body height loss has progressed comp ared to the 01/31/2025 study. 3. No high-grade central canal or neural foraminal stenosis. ACT 112: Negative or not required by law. The above report was generated using voice recognition software. It may contain grammatical, syntax o r spelling errors. Electronically signed by: Dogu Wan M.D. 02/05/2025 1:39 PM
[2025-02-06 08:21] LABS: Anion Gap 6.0 (3-11); Blood Urea Nitrogen 29.0 mg/dl (6-23); Calcium 9.7 mg/dl (8.6-10.3); Carbon Dioxide 27.0 mmol/L (21-32); Chloride 104.0 mmol/L (98-107); Creatinine Clr Calc Pharmacy 44.4 ml/min; Glucose 103.0 mg/dl (70-99(Fasting)); Potassium 4.8 mmol/L (3.5-5.1); Sodium 137.0 mmol/L (136-145)
--- NOTE | 2025-02-06 08:38 | Hospitalist Progress Note ---
"Date of Service February 06, 2025 Assessment & Plan (1) Fall from standing: (2) Closed compression fracture of L2 vertebra: (3) Ambulatory dysfunction: (4) Vitamin B12 deficiency: (5) Vitamin D deficiency: Plan Patient is a 79 y/o female with a PMHx of recurrent falls, benign essential tremor, MAC, seizures, parkinsons presented via EMS after a ground level fall at home using her walker, -Patient endorsed head strike on metal cabinet, denies LOC, no blood thinner use. Diagnostic imaging revealed acute mild superior endplate compression deformity of L2. She was admitted for ambulatory dysfunction to have PT/OT evals given she was unable to ambulate in the ED secondary to pain. Admission for pain control/ambulatory dysfunction #Fall | Ambulatory dysfunction #Lumbar Compression deformity/acute compression deformity 2nd to fall/trauma - uses walker at baseline but reported ground level fall walking with walker and striking head on cabinet but denied LOC, no blood thinner use at baseline. CTAP noted acute mild superior endplate compression deformity of L2 Ongoing left pain, weakness w/ dorsiflexion/plantarflexion in setting of fall and xray obtained, MRI for further evaluation MRI Lumbar spine(see report) w/ concerns acute appearing L2 compression deformity/burst fracture w/ 3mm retropulsion, 30% superior endplate loss, moderate marrow/adjacent paravertebral edema. Minimal b/l neural foraminal stenosis, L>R at L1-L2. At L3-L4 level, appears small circumferential annular disc bulge w/ 3mm anterolisthesis 2nd to chronic mod-severe facet arthrosis, mild posterior disc space uncovering. At L5-S1, moderate intervertebral disc space narrowing w/ small circumferential disc osteophyte complete, mod-severe facet arthrosis Dr Sanchez consulted - reviewed imaging/discussed w/ solutions architect consultant and no emergent need for surgery and ok w/ trial conservative treatment with outpatient follow up. Pain control ongoing issue however review of medications received in past 24 hours and only got Toradol, Oxycodone x 1 early AM 02/05 and then one dose of Dilaudid yesterday afternoon and suspect baseline tylenol 1gm TID scheduled not sufficient. +BM 8, 86 w/ bowel regimen which has been continued to prevent constipation on pain control * Continue APAP 1gm TID ROSALINDA * Lidoderm patch * Making oxycodone 5mg BID SCHEDULED, additional prn available if needed * Ibuprofen 600mg TID SCHEDULED, toradol IV available prn if needed. Pepcid for GI proph/no issues reported * Calcitonin nasal spray * Solu-medrol 40mg IV BID - consider steroid taper at [facility] * Heating pad * Dilaudid available for breakthrough if needed but hopefully w/ scheduled low dose oxycodone BID and NSAIDs will have improvement Orthotics brought brace -Difficult for patient to use but can see if able to remove pieces to fit better? -Message sent to orthotics solutions architect consultant to see if able to remove any pieces to make less heavy/accommodate PT/OT rec rehab, [facility] able to offer bed today however patient w/ ongoing pain control needs requiring ongoing inpatient stay #Acute UTI +UA on admission however denied sx but ?if contributed to fall. Given Ceftriaxone IV x 1 and urine cx ecoli and converted to Augmentin BID to complete course, EOT 02/08 for 7 day course PO hydration encouraged #B12 deficiency Level checked w/ prior lows and MCV >100--> LOW at 106 and IM replacement ordered while inpatient (on day 3) and will convert to PO in am. Rec continued PO supplementation at [facility] #Vitamin D deficiency Vit D level checked w/ elevated ALP and acute fracture and found to be LOW at 20.4 Added Vit D PO 25mcg daily - rx at [facility], PCP f/u recommended #MAC Follows with anchorman in [place], Dr. Lou. Noted on chest CT. Unchanged and stable. 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 #Mental health Continue paroxetine VTE ppx: SCDs, fall risk. Lovenox SQ once daily added 02/04 given continued inpatient stay. Pepcid for GI proph (also on steroids) Dispo: continued inpatient stay for pain control, will need outpatient follow up Dr Sanchez following trial conservative treatment but was discussed and not feel need surgery at this time [facility] hopefully to take 02/07 if pain under better control with adjustments made as above Admission and Anticipated Discharge Date Admission Date: February 02, 2025 Supervising Physician Co-Signing Physician Notes The patient was not seen by me. The chart was reviewed. Case discussed with MITCHEL Ojeda. Agree with assessment and plan Subjective Eval this morning, moved bowels that last evening. Reports ongoing back pain/left lower. Discussed MRI/, discussion Dr Sanchez review and ok w/ conservative trial. Reports not feeling stable for dc. Discussed no pain meds since yesterday afternoon, will schedule ibuprofen TID/oxycodone twice daily for baseline control, additional opiates if needed. If better control, plan dc to [facility] tomorrow Physical Exam Physical Exam: General: 79yo female laying in bed, NAD but reporting ongoing left lower back/leg pain/left paraspinal muscle tenderness HEENT: head atraumatic, normocephalic, mm slightly dry, trachea midline Resp: even/unlabored, no wheezing/rales, 97% on RA CV: RRR, no significant m/r/g, no pitting edema GI: +BS, soft, less distended, nontender no wright, voiding spontaneously MSK/Neuro: +tenderness to palpation lumbar spine/L paraspinal muscles, slight decreased flexion/extension L foot with dorsiflexion/plantarflexion compared to the right not confused, answering questions appropriately, no slurred speech/facial droop Psych: AOx3 - alert to hospital/month/year, no confused, cooperative with exam Results & Data Results & Data Vital Signs (Past 12 Hours) Vital Signs Temp Pulse Pulse Resp BP Pulse Ox O2 Del Method 02/06/25 07:49 36.5 C 65 13 154/74 H 96 Room Air 02/05/25 23:24 36.3 C L 70 16 127/69 96 Room Air Laboratory Results 02/06/25 02/05/25 Range/Units 07:32 08:23 WBC 8.62 (4.8-10.8) K/ul RBC 4.23 (4.20-5.40) M/uL Hgb 14.2 (12.0-16.0) g/dl Hct 41.6 (37.0-47.0) % MCV 98.3 (80.0-100.0) fL MCH 33.6 (25.0-34.0) pg MCHC 34.1 (32.0-36.0) g/dL RDW Std Deviation 45.6 (36.4-46.3) fL RDW Coeff of Angel 12.7 (11.5-14.5) % Plt Count 335 (130-400) K/uL MPV 9.9 (9.4-12.4) fL Sodium 137 136 (136-145) mmol/L Potassium 4.8 4.3 (3.5-5.1) mmol/L Chloride 104 104 (98-107) mmol/L Carbon Dioxide 27 24 (21-32) mmol/L Anion Gap 6 8 (3-11) BUN 29 H 27 H (6-23) mg/dl Creatinine 0.82 0.83 (0.6-1.2) mg/dl Est Cr Clr Drug Dosing 44.4 43.8 ml/min eGFR 73.63 72.56 BUN/Creatinine Ratio 35.4 H 32.5 H (10-20) Glucose 103 H 105 H (70-99(Fasting)) mg/dl Calcium 9.7 9.9 (8.6-10.3) mg/dl Magnesium 2.1 (1.7-2.4) mg/dl Diagnostic Findings Lumbar Spine MRI 02/05/25 09:41 MR lumbar spine wo con CLINICAL HISTORY: 79 years-old Female with fall, trauma, LLE radiculopathy. Acute low back pain with recent fall. COMPARISON: Lumbar spine radiographs 02/04/2025, CT abdomen and pelvis 01/31/2025, chest CT 10/15/2024 TECHNIQUE: Multiplanar, multi sequence MRI of the lumbar spine was performed without intravenous contrast. FINDINGS: Comparing this exam to the prior chest, abdomen and pelvis CTs there appears to be 6 nonrib-bearing lumbar-type vertebral segments. The L6-S1 disc space will be described on axial image 34 series 6. Please note that this numbering may vary from the prior CT interpretations. Acute appearing L2 compression deformity/burst fracture with 3 mm retropulsion demonstrates approximately 30% superior endplate height loss which as previously discussed has progressed compared to the 01/31/2025 CT study. There is moderate marrow with adjacent paravertebral edema. No additional acute fracture, subluxation or significant marrow edema. No endplate erosions. There is no T1 fracture line or marrow replacement process. The conus terminates at L1-L2. The visualized spinal cord and cauda equina are normal. The intra-abdominal structures are grossly unremarkable. Study is motion degraded. Anterior bridging osteophytosis of the lower thoracic spine. Mild multilevel intervertebral disc space narrowing, spondylitic spurring and moderate facet arthrosis. T12-L1: No central canal or neural foraminal stenosis. L1-L2: Mild spondylitic spurring with small posterior annular disc bulge and moderate facet arthrosis. 3 mm retropulsion of the L2 fracture. Central canal is patent. Minimal bilateral neural foraminal stenosis, left greater than right. L2-L3: Moderate facet arthrosis. No central canal or neural foraminal stenosis. L3-L4: Mild intervertebral disc space narrowing and spondylotic spurring. Small circumferential annular disc bulge. 3 mm anterolisthesis secondary to chronic moderate to severe facet arthrosis. Mild posterior disc space uncovering. No central canal or neural foraminal stenosis. L4-L5: Moderate to severe facet arthrosis. No central canal or neural foraminal stenosis. L5-S1: Moderate intervertebral disc space narrowing with small circumferential disc osteophyte complex. Moderate to severe facet arthrosis. No central canal or neural foraminal stenosis. L6-S1: No central canal or neural foraminal narrowing. IMPRESSION: 1. 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 2. Mild acute L2 compression deformity/burst fracture with mild retropulsion is unchanged from yesterday's radiographs, however as previously described the vertebral body height loss has progressed compared to the 01/31/2025 study. 3. No high-grade central canal or neural foraminal stenosis. ACT 112: Negative or not required by law. The above report was generated using voice recognition software. It may contain grammatical, syntax or spelling errors. Electronically signed by: Doug Wan M.D. 02/05/2025 1:39 PM PG Care Time/CCT Total # of Minutes Spent Total Time Spent with Patient: Total time spent is greater than 50% in coordination of care (as documented) at patient's floor/unit and/or counseling patient: Coding Level of Care Code 72644 SUB INP/OBS CARE 3/50MIN Diagnoses Fall from standing W19.XXXA Closed compression fracture of L2 vertebra S32.020A Ambulatory dysfunction R26.2 Vitamin B12 deficiency E53.8 Vitamin D deficiency E55.9"
--- NOTE | 2025-02-06 09:41 | XRay Report ---
KUB HISTORY: eval constipation/stool burden COMPARISON STUDY: 01/31/2025 FINDINGS: There is moderate retained stool. No bowel obstruction seen. IMPRESSION: Moderate retained stool. ACT 112: Negative or not required by law. The above report was generated using voice recognition software. It may contain grammatical, syntax o r spelling errors. Electronically signed by: Gerson Tiwari M.D. 02/06/2025 9:40 AM
[2025-02-06] MEDS: IBUPROFEN 200 MG/10 ML UDC PO SCH (15:12)
[2025-02-06] MEDS: IBUPROFEN 600 MG TAB PO SCH (15:38)
[2025-02-07 06:54] LABS: Anion Gap 6.0 (3-11); Blood Urea Nitrogen 33.0 mg/dl (6-23); Calcium 9.1 mg/dl (8.6-10.3); Carbon Dioxide 24.0 mmol/L (21-32); Chloride 107.0 mmol/L (98-107); Creatinine Clr Calc Pharmacy 42.3 ml/min; Glucose 111.0 mg/dl (70-99(Fasting)); Potassium 4.6 mmol/L (3.5-5.1); Sodium 137.0 mmol/L (136-145)
--- NOTE | 2025-02-07 07:54 | Hospitalist Progress Note ---
"Date of Service February 07, 2025 Assessment & Plan (1) Fall from standing: (2) Closed compression fracture of L2 vertebra: (3) Ambulatory dysfunction: (4) Vitamin B12 deficiency: (5) Vitamin D deficiency: Plan Patient is a 79 y/o female with a PMHx of recurrent falls, benign essential tremor, MAC, seizures, parkinsons presented via EMS after a ground level fall at home using her walker, -Patient endorsed head strike on metal cabinet, denies LOC, no blood thinner use. Diagnostic imaging revealed acute mild superior endplate compression deformity of L2. She was admitted for ambulatory dysfunction to have PT/OT evals given she was unable to ambulate in the ED secondary to pain. Admission for pain control/ambulatory dysfunction #Fall | Ambulatory dysfunction #Lumbar Compression deformity/acute compression deformity 2nd to fall/trauma - uses walker at baseline but reported ground level fall walking with walker and striking head on cabinet but denied LOC, no blood thinner use at baseline. CTAP noted acute mild superior endplate compression deformity of L2 Ongoing left pain, weakness w/ dorsiflexion/plantarflexion in setting of fall and xray obtained, MRI for further evaluation and noted acute L2 compression fracture w/ retropulsion, concerns for need for surgical intervention/possible kyphoplasty discussed but was hopeful for trial conservative treatment but consult for ortho spine placed Discussed case w/ Dr Sanchez today and given ongoing pain >1wk following fall/burst fracture does suspect benefit from Kyphoplasty and patient agreeable OR availability w/ plans for TUESDAY Continue pain control - APAP Q8H scheduled, lidoderm patch, calcitonin nasal spray Continue scheduled oxycodone 5mg BID, ibuprofen PO TID. Toradol/Dilaudid available for breakthrough if needed. Pepcid for GI proph +Heating pad Solumedrol converted to prednisone but not much benefit and likely can stop Continue bowel regimen, multiple BMs and backed down and monitoring with ongoing pain medications Will need to be NPO Tuesday night for OR Tuesday Lovenox SQ for DVT proph #Acute UTI- +UA on admission however denied sx but ?if contributed to fall. Given Ceftriaxone IV x 1 and urine cx ecoli and converted to Augmentin BID to complete course, EOT 02/08 for 7 day course #B12 deficiency - checked w/ prior lows and MCV >100--> LOW at 106 IM replacement x 3 provided while inpatient --> converted to PO and would continue at [facility] #Vitamin D deficiency - Vit D level checked w/ elevated ALP and acute fracture and found to be LOW at 20.4 Added Vit D PO 25mcg daily - rx at [facility], PCP f/u recommended #MAC Follows with dental ceramist helper in [place], Dr. Lou. Noted on chest CT. Unchanged and stable. 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 #Mental health Continue paroxetine Support provided VTE ppx: SCDs, Lovenox SQ added given inpatient stay Dispo: continued inpatient stay for pain control, plan for Kyphoplasty with Dr Sanchez on Tuesday Orthotics notified and attempting adjustment to brace Admission and Anticipated Discharge Date Admission Date: February 02, 2025 Supervising Physician Co-Signing Physician Notes The patient was not seen by me. The chart was reviewed. Case discussed with MITCHEL Ojeda. Agree with assessment and plan Subjective Evaluated this morning, ongoing pain. Not received her AM scheduled medications. Moving bowels. No abdominal pain. Seen by Dr Sanchez, plans for surgery, discussed OR schedule with surgery planned for Tuesday. RN to provide pain medications, will remain inpatient. No heating pad in place, will have nursing provide as previously ordered. Issues w/ brace/too bulky but did wear--> message to orthotics to see about adjustment and will be by this afternoon. Plan [facility] following surgery. Remains alert/oriented, knows in hospital, year 2024, month February. 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 Questions/concerns addressed at this time. Physical Exam 2 Physical Exam: General: 79yo female laying in bed, NAD but reporting ongoing left lower back/leg pain/left paraspinal muscle tenderness HEENT: head atraumatic, normocephalic, mm slightly dry, trachea midline Resp: even/unlabored, no wheezing/rales, 97% on RA CV: RRR, no significant m/r/g, no pitting edema GI: +BS, soft, less distended, nontender no wright, voiding spontaneously MSK/Neuro: +tenderness to palpation lumbar spine/L paraspinal muscles, slight decreased flexion/extension L foot with dorsiflexion/plantarflexion compared to the right not confused, answering questions appropriately, no slurred speech/facial droop Psych: AOx3 - alert to hospital/month/year, no confused, cooperative with exam Results & Data Results & Data Vital Signs (Past 12 Hours) Vital Signs Temp Pulse Resp BP Pulse Ox O2 Del Method 02/06/25 23:04 36.5 C 70 18 123/65 96 Room Air Laboratory Results 02/05/25 08:23 02/07/25 05:54 PG Care Time/CCT Total # of Minutes Spent Total Time Spent with Patient: Total time spent is greater than 50% in coordination of care (as documented) at patient's floor/unit and/or counseling patient: Coding Level of Care Code 79812 SUB INP/OBS CARE 3/50MIN Diagnoses Fall from standing W19.XXXA Closed compression fracture of L2 vertebra S32.020A Ambulatory dysfunction R26.2 Vitamin B12 deficiency E53.8 Vitamin D deficiency E55.9"
--- NOTE | 2025-02-07 08:14 | Orthopedic Consultation ---
Date of Consultation February 07, 2025 Assessment & Plan (1) Closed compression fracture of L2 vertebra: Assessment L2 compression fracture. Plan at this time the brace that she is wearing during therapy provides little relief. She is quite miserable. Fracture pattern is supportive of possible kyphoplasty. I believe this would provide her some significant relief and independence. She is comfortable with this plan. This point I would recommend we move towards kyphoplasty of the L2 vertebral body. This may be as soon as Tuesday or Tuesday pending the OR availability. History of Present Illness Reason for Consultation: L2 compression fracture Attending Physician: Rordigo Salas MD History of Present Illness Is a very pleasant 79-year-old female that presents with an L2 compression fracture. She states this occurred approximately a week ago. Unfortunately her pain is still very limiting. She is able to tolerate therapy but describes it as miserable. The pain patch has provided some relief at night. She denies any numbness or tingling to lower extremities. Denies any leg weakness. Allergies Allergy/AdvReac Type Severity Reaction Status Date / Time Iodinated Contrast Media Allergy Intermediate Hives Verified 09/25/21 20:09 iodine Allergy Mild HIVES Verified 09/20/21 13:32 morphine Allergy Unknown Unknown Verified 09/25/21 20:09 simvastatin Allergy Unknown Unknown Verified 09/25/21 20:09 prednisone AdvReac Mild GI UPSET Verified 09/20/21 13:32 Home Medications Medication Instructions Recorded Confirmed Type lacosamide 200 mg tablet (Vimpat) 200 mg PO BID ##0 11/29/12 01/31/25 History levetiracetam 500 mg tablet 1,000 mg PO BID #0 tabs 11/29/12 01/31/25 History valacyclovir 500 mg tablet 500 mg PO DAILY #0 tabs 11/29/12 01/31/25 History acetaminophen 500 mg tablet 1,000 mg PO Q6H PRN Pain 09/20/21 01/31/25 History donepezil 5 mg tablet 5 mg PO QAM 09/20/21 01/31/25 History carbidopa 25 mg-levodopa 100 mg 1.5 tab PO TID 10/15/24 01/31/25 History tablet (Sinemet) carbidopa ER 25 mg-levodopa 100 mg 1 tab PO QPM 10/15/24 01/31/25 History tablet,extended release tramadol 50 mg tablet 50 mg PO Q8H PRN pain #10 tabs 10/16/24 01/31/25 Rx hydroxyzine pamoate 25 mg capsule 25 mg PO BID PRN DIRECTED 01/31/25 01/31/25 History paroxetine HCl 40 mg tablet 40 mg PO QAM 01/31/25 01/31/25 History topiramate 25 mg tablet 50 mg PO HS 01/31/25 01/31/25 History cholecalciferol (vitamin D3) 25 25 mcg PO QAM #30 caps 02/06/25 Rx mcg (1,000 unit) capsule cyanocobalamin (vitamin B-12) 500 1,000 mcg (2 x 500 mcg) PO QAM #30 02/06/25 Rx mcg tablet tabs lidocaine 5 % topical patch 1 patch transdermal PM #15 ea 02/06/25 Rx Patient History Medical History Aortic valve insufficiency Hx of meningitis 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 Family History Other No pertinent family history Social History Smoking Status: Never smoker Second Hand Exposure: No; Do You Dip or Chew Tobacco: No; Hx Alcohol Use: Yes Alcohol type: hard liquor Alcohol Intake Frequency: Monthly or Less Hx Substance Use: No Preferred Language: Wolof Communication Ability: Effective Hearing Ability: Normal 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 She is neurologically intact lower extremities. She does have pain to palpation percussion of the thoracolumbar junction. Results & Data Vital Signs (Past 12 Hours) Vital Signs Temp Pulse Resp BP Pulse Ox O2 Del Method 02/06/25 23:04 36.5 C 70 18 123/65 96 Room Air
[2025-02-07] MEDS: CYANOCOBALAMIN (B-12) 500 MCG TABLET PO SCH (09:52)
[2025-02-07] MEDS: POLYETHYLENE (MIRALAX) 17 GM PACK PO SCH (10:00)
[2025-02-07] MEDS: predniSONE 20 MG TAB PO SCH (10:16)
[2025-02-07] MEDS: IBUPROFEN 200 MG TAB PO SCH (14:49)
--- NOTE | 2025-02-08 07:55 | Hospitalist Progress Note ---
"Date of Service February 08, 2025 Assessment & Plan (1) Fall from standing: (2) Closed compression fracture of L2 vertebra: (3) Ambulatory dysfunction: (4) Vitamin B12 deficiency: (5) Vitamin D deficiency: Plan Patient is a 79 y/o female with a PMHx of recurrent falls, benign essential tremor, MAC, seizures, parkinsons presented via EMS after a ground level fall at home using her walker, -Patient endorsed head strike on metal cabinet, denies LOC, no blood thinner use. Diagnostic imaging revealed acute mild superior endplate compression deformity of L2. She was admitted for ambulatory dysfunction to have PT/OT evals given she was unable to ambulate in the ED secondary to pain. Uses walker at baseline Admission for pain control/ambulatory dysfunction and ongoing discomfort obtained xray as well as MRI given radicular symptoms/weakness with standing which noted acute L2 compression fracture w/ retropulsion, concerns for need for surgical intervention/possible kyphoplasty discussed but was hopeful for trial conservative treatment but consult for ortho spine placed and discussed with Dr Sanchez and remains inpatient for Kyphoplasty on TUESDAY with Dr Sanchez #Fall | Ambulatory dysfunction #Lumbar Compression deformity/acute compression deformity/burst fracture 2nd to fall/trauma - as above, remains inpatient for continued pain control with plans for kyphoplasty on tuesday with Dr Sanchez Continue pain control - Tylenol q8h, ibuprofen q8h. Lidocaine patch, calcitonin nasal spray - Oxycodone 5mg BID scheduled, additional prn available. Dilaudid available for breakthrough - Prednisone 40mg daily, consider stopping but has been continued for now Orthotics for TLSO brace, messaged/refitted Heating pad Bowel regimen - continue miralax, colace. Dulcolax PRN planned 02/08 this afternoon if no BM given palpable stool and no BM x 48hr but +BS on exam Lovenox SQ while inpatient, pepcid Monitor for adjustment to pain regimen if needed but appears more comfortable today w/ adjustments as above #Acute UTI- completing treatment w/ PO Augmentin today for ecoli UTI however denied sx but cannot r/o contributing to above and have completed course after today's dose #B12 deficiency - checked w/ prior lows and MCV >100--> LOW at 106 IM replacement x 3 provided while inpatient and continues on PO at this time Rx at dc for continued supplementation recommended #Vitamin D deficiency - Vit D level checked w/ elevated ALP and acute fracture Vit D found to be LOW at 20.4 and PO supplementation started - rec continue rx at dc #MAC Follows with lead worker of housekeeping and laundry in [place], Dr. Lou. Noted on chest CT. Unchanged and stable. #Benign essential tremor, Parkinsons Continue carbidopa-levodopa, fall precautions, PT/OT as above Prior on propranolol , no significant tremor #Seizure disorder No seizure activity reported/observed as cause for her fall [employer] Continue Vimpat, Keppra, topiramate. #Mental health Continue paroxetine Support provided VTE ppx: SCDs, Lovenox SQ added given inpatient stay Dispo: continued inpatient stay for pain control, plan for Kyphoplasty with Dr Sanchez on Tuesday. Working on bowel regimen, dulcolax MA this afternoon if any issues. Admission and Anticipated Discharge Date Admission Date: February 02, 2025 Supervising Physician Co-Signing Physician Notes The patient was not seen by me. The chart was reviewed. Case discussed with MITCHEL Ojeda. Agree with assessment and plan Subjective Evaluated this morning, resting in bed. Just got medication. Got up around 2:30, difficulty getting back to bed. Wanting to rest, denies flatus but good bowel sounds on exam, took miralax this morning. Discussed prior de-escalation in bowel regimen but palpable stool L colon and suppository this afternoon. Sighed when mentioned but did report it was effective prior and discussed wanting to prevent constipation as this can worsen back pain. Inquiring about timing for surgery Tuesday, no time yet obtained but will alert when have. No fever/chills, chest pain, shortness of breath, nausea/vomiting at this time. Physical Exam 2 Physical Exam: General: 79yo female laying in bed, NAD but reporting ongoing left lower back/leg pain/left paraspinal muscle tenderness HEENT: head atraumatic, normocephalic, mm slightly dry, trachea midline Resp: even/unlabored, no wheezing/rales, on RA CV: RRR, no significant m/r/g, no pitting edema GI: +BS, soft, slight distension, palpable stool L colon, no guarding/rebound no wright, voiding spontaneously MSK/Neuro: +tenderness to palpation lumbar spine/L paraspinal muscles, slight decreased flexion/extension L foot with dorsiflexion/plantarflexion compared to the right (IMPROVED/equal today) -not confused, answering questions appro priately, no slurred speech/facial droop Psych: AOx3 - alert to hospital/month/year, no confused, cooperative with exam Results & Data Results & Data Vital Signs (Past 12 Hours) Vital Signs Temp Pulse Pulse Resp BP Pulse Ox O2 Del Method 02/08/25 07:38 36.6 C 65 18 169/76 H 96 Room Air 02/07/25 23:12 36.5 C 66 16 123/71 95 Room Air Laboratory Results 02/05/25 08:23 02/07/25 05:54 PG Care Time/CCT Total # of Minutes Spent Total Time Spent with Patient: Total time spent is greater than 50% in coordination of care (as documented) at patient's floor/unit and/or counseling patient: Coding Level of Care Code 98209 SUB INP/OBS CARE 2/35MIN Diagnoses Fall from standing W19.XXXA Closed compression fracture of L2 vertebra S32.020A Ambulatory dysfunction R26.2 Vitamin B12 deficiency E53.8 Vitamin D deficiency E55.9"
--- NOTE | 2025-02-08 11:16 | Orthopedic Progress Note ---
Date of Service February 08, 2025 Assessment & Plan (1) Closed compression fracture of L2 vertebra: Plan: At this time we will plan for kyphoplasty on Tuesday. All questions were addressed. Will make her n.p.o. after midnight Tuesday. Admission and Anticipated Discharge Date Admission Date: February 02, 2025 Subjective Patient is still struggling with significant limiting thoracolumbar back pain Physical Exam Physical Exam: Physical exam unchanged Results & Data Vital Signs (Past 12 Hours) Vital Signs Temp Pulse Resp BP Pulse Ox O2 Del Method 02/08/25 07:38 36.6 C 65 18 169/76 H 96 Room Air
[2025-02-09 07:11] LABS: Hematocrit (blood only) 38.1 % (37.0-47.0); Hemoglobin 13.1 g/dl (12.0-16.0); Mean Corpuscular Hemoglobin 34.1 pg (25.0-34.0); Mean Corpuscular Volume 99.2 fL (80.0-100.0); Platelet Count 322 K/uL (130-400); RDW Standard Deviation 46.3 fL (36.4-46.3); Red Blood Count 3.84 M/uL (4.20-5.40); White Blood Count 9.15 K/ul (4.8-10.8)
[2025-02-09 07:41] LABS: Anion Gap 7.0 (3-11); Blood Urea Nitrogen 38.0 mg/dl (6-23); Calcium 9.0 mg/dl (8.6-10.3); Carbon Dioxide 25.0 mmol/L (21-32); Chloride 106.0 mmol/L (98-107); Creatinine Clr Calc Pharmacy 40.0 ml/min; Glucose 88.0 mg/dl (70-99(Fasting)); Potassium 4.2 mmol/L (3.5-5.1); Sodium 138.0 mmol/L (136-145)
--- NOTE | 2025-02-09 08:39 | Hospitalist Progress Note ---
"Date of Service February 09, 2025 Assessment & Plan (1) Fall from standing: (2) Closed compression fracture of L2 vertebra: (3) Ambulatory dysfunction: (4) Vitamin B12 deficiency: (5) Vitamin D deficiency: Plan Patient is a 79 y/o female with a PMHx of recurrent falls, benign essential tremor, MAC, seizures, parkinsons presented via EMS after a ground level fall at home using her walker, -Patient endorsed head strike on metal cabinet, denies LOC, no blood thinner use. Diagnostic imaging revealed acute mild superior endplate compression deformity of L2. She was admitted for ambulatory dysfunction to have PT/OT evals given she was unable to ambulate in the ED secondary to pain. Uses walker at baseline Admission for pain control/ambulatory dysfunction and ongoing discomfort obtained xray as well as MRI given radicular symptoms/weakness with standing which noted acute L2 compression fracture w/ retropulsion, concerns for need for surgical intervention/possible kyphoplasty discussed but was hopeful for trial conservative treatment but consult for ortho spine placed and discussed with Dr Sanchez and remains inpatient for Kyphoplasty on TUESDAY with Dr Sanchez #Fall | Ambulatory dysfunction #Lumbar Compression deformity/acute compression deformity/burst fracture 2nd to fall/trauma As above, remains inpatient for continued pain control/bowel regimen with plans for kyphoplasty on tuesday with Dr Sanchez Pain control: Erasmo Tylenol q8h, ibuprofen 400mg q8h. Lidocaine patch, calcitonin nasal spray. Oxycodone 5mg BID scheduled, additional prn available w/ dilaudid available for breakthrough Prior prednisone 40mg daily, will stop for now given not much prior benefit Bowel regimen - colace/miralax, s/p dulcolax 02/08 w/ good results and use prior. continue prn Orthotics for brace - wear as tolerated, no heavy lifting discussed Fall precautions Lovenox SQ for DVT proph NPO tuesday night for OR Tuesday with Dr Sanchez Will need repeat PT/OT evals following surgery - patient hopeful for good results and possible home w/ services if improved #Acute UTI- completed treatment w/ PO Augmentin 02/08 for ecoli UTI. Denied sx but cannot r/o contributing to above and have completed course while inpatient. no wright #B12 deficiency - checked w/ prior lows and MCV >100--> LOW at 106 IM replacement x 3 provided while inpatient and continues on PO at this time Rx at dc for continued supplementation recommended #Vitamin D deficiency - Vit D level checked w/ elevated ALP and acute fracture Vit D found to be LOW at 20.4 and PO supplementation started - rec continue rx at dc #MAC Follows with care management associate in [place], Dr. Lou. Noted on chest CT. Unchanged and stable. 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 #Mental health Continue paroxetine Support provided VTE ppx: SCDs, Lovenox SQ added given inpatient stay Dispo: continued inpatient stay for pain control, plan for Kyphoplasty with Dr Sanchez Tuesday Admission and Anticipated Discharge Date Admission Date: February 02, 2025 Supervising Physician Co-Signing Physician Notes The patient was not seen by me. The chart was reviewed. Case discussed with MITCHEL Ojeda. Agree with assessment and plan Subjective Eval this morning, doing well. Reports improvement in pain control/stable with ordered medications. Ate her breakfast, bowel movement yesterday x 2. Bowel regimen continued w/ pain medications and discussed suppository if needed tomorrow to ensure good results for surgery. Reports daughter helps at home/does pills/checks on her frequently and wondering about rehab-- discussed if does much better following procedure and can repeat therapy evals to see if able to dc home w/ services. No fever/chills, chest pain, shortness of breath, abdominal pain, nausea or vomiting. Questions/concerns addressed at this time. Physical Exam 2 Physical Exam: General: 79yo female laying in bed resting, NAD, appears more comfortable HEENT: head atraumatic, mm improved, trachea midline Resp: even/unlabored, no wheezing/rales, 96% on RA CV: RRR, no significant m/r/g, no pitting edema/calf tenderness GI: +BS, soft/nontender no wright MSK/Neuro: lumbar spinal tenderness but improvement in LE strength without discomfort. dorsiflexion/plantar flexion intact Psych: alert/oriented, cooperative with exam Results & Data Results & Data Vital Signs (Past 12 Hours) Vital Signs Temp Pulse Resp BP BP Pulse Ox O2 Del Method 02/09/25 07:47 36.6 C 66 18 143/75 H 96 Room Air 02/08/25 23:06 36.4 C L 63 16 151/71 H 94 Room Air Laboratory Results 02/09/25 06:31 02/09/25 06:31 PG Care Time/CCT Total # of Minutes Spent Total Time Spent with Patient: Total time spent is greater than 50% in coordination of care (as documented) at patient's floor/unit and/or counseling patient: Coding Level of Care Code 75797 SUB INP/OBS CARE 2/35MIN Diagnoses Fall from standing W19.XXXA Closed compression fracture of L2 vertebra S32.020A Ambulatory dysfunction R26.2 Vitamin B12 deficiency E53.8 Vitamin D deficiency E55.9"
--- NOTE | 2025-02-09 10:52 | Anesthesiology Consultation ---
Date of Service February 09, 2025 Assessment & Plan Chart Review Chart Review: Acceptable Risk for Surgery and Patient NOT seen in Pre Admission Testing Consults Requested none ASA ASA3 Proposed Anesthesia Anesthesia Type: General History Surgery Operation Date: 02/11/25 08:55 Proposed Procedures p L2 Kyphoplasty - Cornell Sanchez DO Height/Weight Height: 5 ft 4 in Weight: 48.9 kg Allergies Allergy/AdvReac Type Severity Reaction Status Date / Time Iodinated Contrast Media Allergy Intermediate Hives Verified 09/25/21 20:09 iodine Allergy Mild HIVES Verified 09/20/21 13:32 morphine Allergy Unknown Unknown Verified 09/25/21 20:09 simvastatin Allergy Unknown Unknown Verified 09/25/21 20:09 prednisone AdvReac Mild GI UPSET Verified 09/20/21 13:32 Medications Home Medications Medication Instructions Recorded Confirmed Last Taken lacosamide 200 mg tablet (Vimpat) 200 mg PO BID ##0 11/29/12 01/31/25 09/20/21 levetiracetam 500 mg tablet 1,000 mg PO BID #0 tabs 11/29/12 01/31/25 09/20/21 valacyclovir 500 mg tablet 500 mg PO DAILY #0 tabs 11/29/12 01/31/25 09/20/21 acetaminophen 500 mg tablet 1,000 mg PO Q6H PRN Pain 09/20/21 01/31/25 Unknown donepezil 5 mg tablet 5 mg PO QAM 09/20/21 01/31/25 09/20/21 carbidopa 25 mg-levodopa 100 mg 1.5 tab PO TID 10/15/24 01/31/25 Unknown tablet (Sinemet) carbidopa ER 25 mg-levodopa 100 mg 1 tab PO QPM 10/15/24 01/31/25 Unknown tablet,extended release tramadol 50 mg tablet 50 mg PO Q8H PRN pain #10 tabs 10/16/24 01/31/25 Unknown hydroxyzine pamoate 25 mg capsule 25 mg PO BID PRN DIRECTED 01/31/25 01/31/25 Unknown paroxetine HCl 40 mg tablet 40 mg PO QAM 01/31/25 01/31/25 Unknown topiramate 25 mg tablet 50 mg PO HS 01/31/25 01/31/25 Unknown cholecalciferol (vitamin D3) 25 25 mcg PO QAM #30 caps 02/06/25 Unknown mcg (1,000 unit) capsule cyanocobalamin (vitamin B-12) 500 1,000 mcg (2 x 500 mcg) PO QAM #30 02/06/25 Unknown mcg tablet tabs lidocaine 5 % topical patch 1 patch transdermal PM #15 ea 02/06/25 Unknown Active Medications Generic Name Dose Route Start Last Admin Trade Name Raffiq PRN Reason Stop Dose Admin Acetaminophen 1,000 mg 02/01/25 14:00 02/09/25 08:56 Acetaminophen 500 Mg Tab PO 03/03/25 13:59 1,000 mg TID ROSALINDA Administration Bisacodyl 10 mg 02/04/25 10:01 02/08/25 14:17 Bisacodyl 10 Mg Supp RI 03/06/25 10:00 10 mg DAILY PRN Administration Constipation Calcitonin [place] 1 sprays 02/01/25 11:15 02/09/25 08:56 Calcitonin [place] Na 200 Iu/Ac 3.7 Ml Btl NA 03/03/25 11:14 1 sprays DAILY ROSALINDA Administration Carbidopa/Levodopa 1 tab 01/31/25 23:43 02/08/25 18:21 Carbidopa/Levodopa 25/100mg Ext Rel Tab PO 03/02/25 23:42 1 tab DAILY@1900 ROSALINDA Administration Carbidopa/Levodopa 1.5 tab 02/01/25 07:00 02/09/25 06:28 Carbidopa/Levodopa 25/100mg Tab PO 03/03/25 06:59 1.5 tab TID@0700,1100,1500 ROSALINDA Administration Cyanocobalamin 1,000 mcg 02/07/25 09:00 02/09/25 08:58 Cyanocobalamin (B-12) 500 Mcg Tablet PO 03/09/25 08:59 1,000 mcg QAM ROSALINDA Administration Docusate Sodium 100 mg 02/04/25 10:15 02/09/25 07:48 Docusate Sodium 100 Mg Cap PO 03/06/25 10:14 Not Given BID ROSALINDA Donepezil HCl 5 mg 02/01/25 09:00 02/09/25 08:57 Donepezil Hcl 5 Mg Tab PO 03/03/25 08:59 5 mg QAM ROSALINDA Administration Enoxaparin Sodium 30 mg 02/05/25 09:00 02/09/25 08:57 Enoxaparin Inj 30 Mg/0.3 Ml Syr SQ 03/07/25 08:59 30 mg QAM ROSALINDA Administration Hydromorphone HCl 0.5 mg 02/02/25 11:30 02/07/25 18:34 Hydromorphone Inj 0.5 Mg/0.5 Ml Syr IV 02/14/25 23:42 0.5 mg Q4H PRN Administration Moderate Pain (Scale 4, 5, 6) Hydromorphone HCl 1 mg 02/02/25 11:30 02/09/25 00:02 Hydromorphone Inj 1 Mg/Ml Syringe IV 02/14/25 23:42 1 mg Q4H PRN Administration Severe Pain (Scale 7, 8, 9,10) Famotidine 20 mg in 5 mls @ 2.5 mls/min 02/04/25 09:00 02/09/25 08:56 Pepcid 20mg Iv Push IV 03/06/25 08:59 2.5 mls/min Q12H ROSALINDA Administration Ibuprofen 400 mg 02/07/25 14:00 02/09/25 06:28 Ibuprofen 200 Mg Tab PO 03/09/25 13:59 400 mg Q8H ROSALINDA Administration Lacosamide 200 mg 01/31/25 23:43 02/09/25 08:56 Lacosamide 50 Mg Tablet PO 03/02/25 23:42 200 mg BID ROSALINDA Administration Levetiracetam 1,000 mg 01/31/25 23:43 02/09/25 08:57 Levetiracetam 500 Mg Tab PO 03/02/25 23:42 1,000 mg BID ROSALINDA Administration Lidocaine 1 patch 02/01/25 21:00 02/08/25 19:31 Lidocaine 5% 1 Patch TD 03/03/25 20:59 1 patch PM ROSALINDA Administration Melatonin 3 mg 01/31/25 23:43 02/08/25 21:20 Melatonin 3 Mg Tab PO 03/02/25 23:42 3 mg HS PRN Administration Sleep Miscellaneous 1 each 02/02/25 09:00 02/09/25 09:03 Remove Lidoderm Patch N/A 03/04/25 08:59 1 each DAILY ROSALINDA Administration Ondansetron HCl 4 mg 01/31/25 23:43 02/03/25 17:38 Ondansetron Inj 2 Mg/Ml 2 Ml Vial IV 03/02/25 23:42 4 mg Q6H PRN Administration Nausea And Vomiting Oxycodone HCl 5 mg 02/06/25 21:00 02/09/25 08:57 Oxycodone Hcl Ir 5 Mg Tab (Immediate Release) PO 02/20/25 20:59 5 mg BID ROSALINDA Administration Paroxetine HCl 40 mg 02/01/25 09:00 02/08/25 09:01 Paroxetine Hcl 20 Mg Tab PO 03/03/25 08:59 40 mg QAM ROSALINDA Administration Polyethylene Glycol 17 gm 02/07/25 09:00 02/09/25 07:49 Polyethylene (Miralax) 17 Gm Pack PO 03/09/25 08:59 Not Given QAM ROSALINDA Sennosides 8.6 mg 02/04/25 21:00 02/08/25 21:12 Senna 8.6 Mg Tab PO 03/06/25 20:59 Not Given HS ROSALINDA Topiramate 50 mg 02/01/25 21:00 02/08/25 21:12 Topiramate 50 Mg Tab PO 03/03/25 20:59 50 mg HS ROSALINDA Administration Valacyclovir HCl 500 mg 02/01/25 09:00 02/09/25 08:57 Valacyclovir Hcl 500 Mg Tablet PO 03/03/25 08:59 500 mg DAILY ROSALINDA Administration Vitamin D 25 mcg 02/04/25 13:15 02/09/25 08:57 Cholecalciferol 25 Mcg (1000 Units) Tab PO 03/06/25 13:14 25 mcg QAM ROSALINDA Administration Past Medical History Medical History Aortic valve insufficiency Hx of meningitis Seizure 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 HTN HLD ASCVD Aorta Dementia Exercise / Class Metabolic Activity III < 4 Walking/Shop/Light housework Past Family History Family History Other No pertinent family history Past Anesthesia History No Hx of Anesthesia Complications and No Family Hx of Anesthesia Complications History of PONV No Hx of PONV and No Hx of Motion Sickness Social History Smoking Status: Never smoker Do You Dip or Chew Tobacco: No Hx Alcohol Use: Yes Alcohol type: hard liquor alcohol intake frequency: holidays/special occasions only Hx Substance Use: No substance use type: does not use Physical Exam Vital Signs Last Vital Signs Temp 36.6 C 02/09/25 07:47 Pulse 66 02/09/25 07:47 Resp 18 02/09/25 07:47 BP 143/75 H 02/09/25 07:47 Pulse Ox 96 02/09/25 07:47 O2 Del Method Room Air 02/09/25 07:47 Testing Laboratory Results 02/09/25 06:31 02/09/25 06:31 PT 11.5 Seconds (9.0-12.0) 01/31/25 Unknown INR 1.1 (0.9-1.1) 01/31/25 Unknown APTT 29 Seconds (21-31) 01/31/25 Unknown Urine Color Yellow 02/04/25 17:22 Urine Appearance Clear (Clear) 02/04/25 17:22 Urine pH 6.5 (4.5-7.5) 02/04/25 17:22 Ur Specific [place] 1.028 (1.000-1.030) 02/04/25 17:22 Urine Protein Negative (Negative) 02/04/25 17:22 Urine Glucose (UA) Negative (Negative) 02/04/25 17:22 Urine Ketones Trace (Negative) H 02/04/25 17:22 Urine Nitrite Negative (Negative) 02/04/25 17:22 Ur Leukocyte Esterase Negative (Negative) 02/04/25 17:22 Urine WBC (Auto) 0-5 /hpf (0-5) 02/04/25 17:22 Urine RBC (Auto) 11-20 /hpf (0-2) H 02/04/25 17:22 U Hyaline Cast (Auto) 0-2 /lpf (0-2) 02/04/25 17:22 U Epithel Cells (Auto) 0-2 /hpf (0-2) 02/04/25 17:22 Urine Bacteria (Auto) None Seen (None Seen) 02/04/25 17:22 01/31/25 23:26 Urine Culture - Final Urine,Clean Catch Escherichia coli Electrocardiogram Date: 01/31/25 Findings: + NSR @ (@ 63;NS T wave abnormality) Chest X-Ray Date: 01/31/25 Findings: + NAD and + atherosclerosis of thoracic aorta C/W COPD Echocardiogram Date: 01/25/24 EF: 55% LV Function: normal RWMA: + none Valvular Disease: + AI (moderate) and + MR (moderate) mild TR/RI
--- NOTE | 2025-02-10 07:53 | Hospitalist Progress Note ---
"Date of Service February 10, 2025 Assessment & Plan (1) Fall from standing: (2) Closed compression fracture of L2 vertebra: (3) Ambulatory dysfunction: (4) Vitamin B12 deficiency: (5) Vitamin D deficiency: Plan Patient is a 79 y/o female with a PMHx of recurrent falls, benign essential tremor, MAC, seizures, parkinsons presented via EMS after a ground level fall at home using her walker, -Patient endorsed head strike on metal cabinet, denies LOC, no blood thinner use. Diagnostic imaging revealed acute mild superior endplate compression deformity of L2. She was admitted for ambulatory dysfunction to have PT/OT evals given she was unable to ambulate in the ED secondary to pain. Uses walker at baseline Admission for pain control/ambulatory dysfunction and ongoing discomfort obtained xray as well as MRI given radicular symptoms/weakness with standing which noted acute L2 compression fracture w/ retropulsion, concerns for need for surgical intervention/possible kyphoplasty discussed but was hopeful for trial conservative treatment but consult for ortho spine placed and discussed with Dr Sanchez and remains inpatient for Kyphoplasty on TUESDAY with Dr Sanchez #Fall | Ambulatory dysfunction #Lumbar Compression deformity/acute compression deformity/burst fracture 2nd to fall/trauma As above, remains inpatient for continued pain control/bowel regimen with plans for kyphoplasty on tuesday with Dr Sanchez Pain control: Erasmo Tylenol q8h, ibuprofen 400mg q8h. Lidocaine patch, calcitonin nasal spray. Oxycodone 5mg BID scheduled, additional prn available w/ dilaudid available for breakthrough Prior prednisone 40mg daily, will stop for now given not much prior benefit Bowel regimen - colace/miralax, s/p dulcolax 02/08 w/ good results and use prior. continue prn suppository as needed. Orthotics for brace - wear as tolerated, no heavy lifting discussed Fall precautions NPO at midnight for Kyphoplasty with Dr Sanchez Plan to repeat PT/OT following to see about going home as hopeful for such (daughter able to help) Lovenox SQ for DVT proph - held for tomorrow dose #Acute UTI- completed treatment w/ PO Augmentin 02/08 for ecoli UTI. Denied sx but cannot r/o contributing to above and have completed course while inpatient. no wright #B12 deficiency - checked w/ prior lows and MCV >100--> LOW at 106 IM replacement x 3 provided while inpatient and continues on PO at this time Rx at dc for continued supplementation recommended #Vitamin D deficiency - Vit D level checked w/ elevated ALP and acute fracture Vit D found to be LOW at 20.4 and PO supplementation started - rec continue rx at dc #MAC Follows with geoscience technician in [place], Dr. Lou. Noted on chest CT. Unchanged and stable. 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 #Mental health Continue paroxetine Support provided VTE ppx: SCDs, Lovenox SQ added given inpatient stay - place on hold for AM for OR Dispo: continued inpatient stay for pain control, plan for Kyphoplasty with Dr Sanchez Tuesday and would repeat PT/OT evals following to see if able to dc home w/ family/HH services Admission and Anticipated Discharge Date Admission Date: February 02, 2025 Supervising Physician Co-Signing Physician Notes The patient was not seen by me. The chart was reviewed. Case discussed with MITCHEL Ojeda. Agree with assessment and plan Subjective Patient evaluated this morning, ambulating back from the bathroom, appear and reports feeling MUCH better and thinks she will be a new woman after tomorrow and hoping to go home after surgery done. Passing gas, BM in past 24-48hrs and no pain. No fever/chills, chest pain, shortness of breath. Questions/concerns addressed at this time. Physical Exam Physical Exam: General: 79yo female ambulating back from the bathroom with a walker, NAD HEENT: head atraumatic, mm improved, trachea midline Resp: even/unlabored, no wheezing/rales, 96% on RA CV: RRR, no significant m/r/g, no pitting edema/calf tenderness GI: +BS, soft/nontender no wright MSK/Neuro: lumbar spinal tenderness MUCH improved, stable LE strength testing, pulses present/no edema Psych: alert/oriented, cooperative with exam Results & Data Results & Data Vital Signs (Past 12 Hours) Vital Signs Temp Pulse Resp BP BP Pulse Ox O2 Del Method 02/10/25 07:21 36.5 C 68 16 133/70 97 Room Air 02/09/25 23:08 36.3 C L 72 18 164/73 H 96 Room Air PG Care Time/CCT Total # of Minutes Spent Total Time Spent with Patient: Total time spent is greater than 50% in coordination of care (as documented) at patient's floor/unit and/or counseling patient: Coding Level of Care Code 10108 SUB INP/OBS CARE 2/35MIN Diagnoses Fall from standing W19.XXXA Closed compression fracture of L2 vertebra S32.020A Ambulatory dysfunction R26.2 Vitamin B12 deficiency E53.8 Vitamin D deficiency E55.9"
[2025-02-10] MEDS: FAMOTIDINE 20 MG TAB PO SCH (09:21)
--- NOTE | 2025-02-10 09:33 | Orthopedic Progress Note ---
Date of Service February 10, 2025 Assessment & Plan (1) Closed compression fracture of L2 vertebra: Plan: Patient will be made n.p.o. after midnight. Will plan for kyphoplasty in the a.m. Admission and Anticipated Discharge Date Admission Date: February 02, 2025 Subjective Back pain is still very limiting. Denies any leg pain. She is having marked difficulty tolerating her TLSO brace. Physical Exam Physical Exam: Patient is in bed at this time. She has good strength testing. Results & Data Vital Signs (Past 12 Hours) Vital Signs Temp Pulse Resp BP BP Pulse Ox O2 Del Method 02/10/25 07:21 36.5 C 68 16 133/70 97 Room Air 02/09/25 23:08 36.3 C L 72 18 164/73 H 96 Room Air Queries Orthopedic Spine Vertebral Fracture Secondary to Osteoporosis: Yes
[2025-02-11] MEDS: SODIUM CHLORIDE 0.9% 1,000 ML IV SCH (06:09)
[2025-02-11] MEDS ORDERED: PROPOFOL IV EMULSION 10 MG/ML 20 ML VIAL IV ONE (07:09)
[2025-02-11] MEDS ORDERED: ROCURONIUM BROMIDE 10 MG/ML 5 ML VIAL IV ONE (07:09)
[2025-02-11] MEDS ORDERED: ONDANSETRON INJ 2 MG/ML 2 ML VIAL ONE (07:09)
[2025-02-11] MEDS ORDERED: DEXAMETHASONE SOD INJ 4 MG/ML VIAL ONE (07:09)
[2025-02-11] MEDS ORDERED: LIDOCAINE 2% 2 ML VIAL/AMP(20MG/ML) INFIL ONE (07:09)
[2025-02-11] MEDS ORDERED: SUGAMMADEX SODIUM 200 MG/2 ML VIAL IV ONE (07:10)
--- NOTE | 2025-02-11 08:39 | History & Physical Bridge Note ---
Date of Service February 11, 2025 History & Physical Bridge Note I have examined the patient, reviewed the History & Physical and in the interval since the performance of the History & Physical I have noted the following changes of clinical significance: no changes noted Kyphoplasty L2 with biopsy
[2025-02-11] MEDS ORDERED: ATROPINE SULFATE 0.1 MG/ML 10ML SYR IV PRN (08:57)
[2025-02-11] MEDS ORDERED: ONDANSETRON INJ 2 MG/ML 2 ML VIAL IV PRN (08:57)
[2025-02-11] MEDS ORDERED: ePHEDrine sulfate 50 MG/5 ML SYR ONE (09:13)
[2025-02-11] MEDS: BUPIVACAINE/EPINEPHRINE 0.25% 1:200,000 30 ML VIAL ONE (09:26)
--- NOTE | 2025-02-11 09:43 | Operative Report ---
Post Operative Report Pre & Post Diagnosis Operation Date: 02/11/25 08:55 Pre-Op Diagnosis: Closed compression fracture of L2 vertebra Post-Op Diagnosis: Closed compression fracture of L2 vertebra I identified the patient and participated in the time-out.: Yes Procedure Operation Date: 02/11/25 08:55 Actual Procedures #1 kyphoplasty L2 vertebral body. #2 biopsy of L2 vertebral body Surgeon Cornell Sanchez, Service Cleaner None Estimated Blood Loss 5 Findings Consistent with Post-Op Diagnosis Specimens Biopsy of L2 vertebral body Indications This is a 79-year-old female presents with bumps diagnosis. After failing conservative care and having continued limitations with the function she is here for surgical invention. Description of Procedure Patient was met with identified informed consent obtained. Patient was then taken to the operative suite underwent intubation placed in a prone position on the Clint table with a chest pad and hip bolsters. All bony prominences well- padded eyes inspected to ensure no external precipice spinal. This point the thoracolumbar spine was prepped and draped in a sterile fashion. The assistance of fluoroscopy in AP and lateral planes identified the L2 vertebral body. 2 small incisions were placed just lateral to the L2 pedicles and 2 Kyphon cannulas were placed by way of a transpedicular approach into the L2 vertebral body. 2 core biopsies were obtained. I then inserted to 20 mm Kyphon balloons within the vertebral body and sequentially inflated with fluoroscopic visualization. They were subsequently removed and approximately 4 cc of Kyphon cement injected into the vertebral body demonstrating excellent interdigitation and fill. The working cannulas were then removed. Incisions closed with subcutaneous Monocryl and sterile dressing placed. Patient waken taken to PACU in stable condition. I attest to the content of the Intraoperative Record and any orders documented therein. Any exceptions are noted below.
--- NOTE | 2025-02-11 10:26 | Anesthesiology Progress Note ---
Date of Service February 11, 2025 Anesthesia Post Procedure Vital Signs Vital Signs: Temp Pulse Pulse Resp BP BP Pulse Ox 02/11/25 10:20 36.5 C 78 16 149/70 H 97 02/11/25 10:10 73 18 149/64 H 97 02/11/25 10:00 76 20 139/61 97 02/11/25 09:48 36.4 C L 71 16 162/67 H 100 02/11/25 08:35 36.8 C 70 18 166/69 H 97 02/11/25 08:06 36.6 C 68 16 161/77 H 99 02/10/25 23:00 36.6 C 67 18 139/73 95 02/10/25 14:59 36.6 C 70 18 130/74 94 O2 Del Method 02/11/25 10:20 Room Air 02/11/25 10:10 Room Air 02/11/25 10:00 Room Air 02/11/25 09:48 Room Air 02/11/25 08:35 Room Air 02/11/25 08:06 Room Air 02/10/25 23:00 Room Air 02/10/25 14:59 Room Air Pain Intensity Back: Pain Intensity: 4 Transfer of Care Handoff Completed per policy Notes Mental Status: alert / awake / arousable Patient Amnestic to Procedure: Yes Nausea / Vomiting: adequately controlled Pain: adequately controlled Airway Patency, RR, SpO2: stable & adequate BP & HR: stable & adequate Hydration State: stable & adequate Anesthetic Complications: no major complications apparent and Pt Satisfied with anesthetic care
--- NOTE | 2025-02-11 13:30 | Fluoroscopy Report ---
[place] kyphoplasty any level CLINICAL HISTORY: L2 KYPHO Fluoroscopy time: 23 seconds. COMPARISON STUDY: None FINDINGS: Fluoroscopy was provided for kyphoplasty. IMPRESSION: Fluoroscopy for kyphoplasty. ACT 112: Negative or not required by law. Electronically signed by: Gerson Tiwari M.D. 02/11/2025 1:29 PM
--- NOTE | 2025-02-11 18:43 | Hospitalist Progress Note ---
"Date of Service February 11, 2025 Assessment & Plan (1) Fall from standing: (2) Closed compression fracture of L2 vertebra: (3) Ambulatory dysfunction: (4) Vitamin B12 deficiency: (5) Vitamin D deficiency: Plan Patient is a 79 y/o female with a PMHx of recurrent falls, benign essential tremor, MAC, seizures, parkinsons presented via EMS after a ground level fall at home using her walker, -Patient endorsed head strike on metal cabinet, denies LOC, no blood thinner use. Diagnostic imaging revealed acute mild superior endplate compression deformity of L2. She was admitted for ambulatory dysfunction to have PT/OT evals given she was unable to ambulate in the ED secondary to pain. Uses walker at baseline Admission for pain control/ambulatory dysfunction and ongoing discomfort obtained xray as well as MRI given radicular symptoms/weakness with standing which noted acute L2 compression fracture w/ retropulsion, concerns for need for surgical intervention/possible kyphoplasty. After trial of pain control, proceeded with L2 kyphoplasty by Dr. Sanchez 02/11 #Fall | Ambulatory dysfunction #Lumbar Compression deformity/acute compression deformity/burst fracture 2nd to fall/trauma kyphoplasty 02/11 Pain control: Erasmo Tylenol q8h, ibuprofen 400mg q8h. Lidocaine patch, calcitonin nasal spray. Oxycodone 5mg BID scheduled, additional prn available w/ dilaudid available for breakthrough Awaiting re-eval by PT/OT see if able to return home with family/HH vs rehab #Acute UTI- completed treatment w/ PO Augmentin 02/08 for ecoli UTI. #B12 deficiency - LOW at 106 IM replacement x 3 provided while inpatient and continues on PO at this time Rx at dc for continued supplementation recommended #Vitamin D deficiency - Vit D found to be LOW at 20.4 and PO supplementation started - rec continue rx at dc #MAC Follows with structural iron worker in [place], Dr. Lou. Noted on chest CT. Unchanged and stable. 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 #Mental health Continue paroxetine Support provided VTE ppx: SCDs, Lovenox SQ Admission and Anticipated Discharge Date Admission Date: February 02, 2025 Subjective I saw her right after procedure and she's sleepy but awake Denies back pain right now, lying flat No shortness of breath or CP Physical Exam Physical Exam: Last 24h vitals reviewed GEN: no acute distress, lying flat in bed, frail elderly woman HEENT: pupils equal, sclerae anicteric, moist MM RESP: normal WOB, CTAB CV: reg no mrg ABD: soft/nt/nd +BT : no wright SKIN: warm and dry, no generalized rashes NEURO: AOx person, place, and situation. Face symmetric, speech normal, moves 4 ext spontaneously and equally Results & Data Results & Data Vital Signs (Past 12 Hours) Vital Signs Temp Pulse Pulse Resp BP BP Pulse Ox 02/11/25 13:54 36.6 C 84 16 135/74 97 02/11/25 12:21 36 C L 84 16 137/75 95 02/11/25 11:25 36.5 C 76 16 173/70 H 98 02/11/25 10:55 36.6 C 77 18 142/68 H 96 02/11/25 10:35 79 20 145/64 H 97 02/11/25 10:20 36.5 C 78 16 149/70 H 97 02/11/25 10:10 73 18 149/64 H 97 02/11/25 10:00 76 20 139/61 97 02/11/25 09:48 36.4 C L 71 16 162/67 H 100 02/11/25 08:35 36.8 C 70 18 166/69 H 97 02/11/25 08:06 36.6 C 68 16 161/77 H 99 O2 Del Method 02/11/25 13:54 Room Air 02/11/25 12:21 Room Air 02/11/25 11:25 Room Air 02/11/25 10:55 Room Air 02/11/25 10:35 Room Air 02/11/25 10:20 Room Air 02/11/25 10:10 Room Air 02/11/25 10:00 Room Air 02/11/25 09:48 Room Air 02/11/25 08:35 Room Air 02/11/25 08:06 Room Air PG Care Time/CCT Total # of Minutes Spent Total Time Spent with Patient: Total time spent is greater than 50% in coordination of care (as documented) at patient's floor/unit and/or counseling patient: Coding Level of Care Code 53011 SUB INP/OBS CARE 235MIN Diagnoses Fall from standing W19.XXXA Closed compression fracture of L2 vertebra S32.020A Ambulatory dysfunction R26.2 Vitamin B12 deficiency E53.8 Vitamin D deficiency E55.9"
[2025-02-12 07:50] VITALS: BP 129/62; PULSE 78; RESP 14; TEMP 98.4; O2SAT 95
--- NOTE | 2025-02-12 08:18 | Orthopedic Progress Note ---
Date of Service February 12, 2025 Assessment & Plan (1) Closed compression fracture of L2 vertebra: Plan: Patient is status post kyphoplasty L2 compression fracture. She is doing very nicely postoperatively. I would discontinue her brace as it is becoming cumber some and painful to her to wear. She is to lift more more than 5 pounds. She is stable to discharge home per orthopedics. Would like to see her in the office in the next 2 weeks for follow-up. She may shower tomorrow. Admission and Anticipated Discharge Date Admission Date: February 02, 2025 Subjective Patient is back pain is controlled. She has been up and ambulating. Physical Exam Physical Exam: Patient is currently in bed. She is quite comfortable. Constricted testing. Results & Data Vital Signs (Past 12 Hours) Vital Signs Temp Pulse Resp BP BP Pulse Ox O2 Del Method 02/12/25 07:49 36.9 C 78 14 129/62 95 Room Air 02/12/25 03:00 36.4 C L 70 16 137/71 98 Room Air 02/11/25 23:12 36.3 C L 73 16 116/63 96 Room Air Queries Orthopedic Spine Vertebral Fracture Secondary to Osteoporosis: Yes
--- NOTE | 2025-02-12 21:44 | Discharge Summary ---
"Discharge Summary Date of Service February 12, 2025 Principal Dx & Hospital Course #1 = Principal Diagnosis (1) Fall from standing: (2) Closed compression fracture of L2 vertebra: (3) Ambulatory dysfunction: (4) Vitamin B12 deficiency: (5) Vitamin D deficiency: Plan Patient is a 79 y/o female with a PMHx of recurrent falls, benign essential tremor, MAC, seizures, parkinsons presented via EMS after a ground level fall at home using her walker, -Patient endorsed head strike on metal cabinet, denies LOC, no blood thinner use. Diagnostic imaging revealed acute mild superior endplate compression deformity of L2. She was admitted for ambulatory dysfunction to have PT/OT evals given she was unable to ambulate in the ED secondary to pain. Uses walker at baseline Admission for pain control/ambulatory dysfunction and ongoing discomfort obtained xray as well as MRI given radicular symptoms/weakness with standing which noted acute L2 compression fracture w/ retropulsion, concerns for need for surgical intervention/possible kyphoplasty. After trial of pain control, proceeded with L2 kyphoplasty by Dr. Sanchez 02/11 #Fall | Ambulatory dysfunction #Lumbar Compression deformity/acute compression deformity/burst fracture 2nd to fall/trauma Pain control was difficult so she underwent kyphoplasty by Dr. Sanchez 02/11 with very favorable immediate result -follow up with Dr. Sanchez Pain control: Erasmo Tylenol q8h, ibuprofen 400mg q8h. Lidocaine patch, calcitonin nasal spray. Oxycodone 5mg prn - infrequent Has TLSO but may be causing more difficulty than benefit - use as needed Home health PT/OT and family assistance #Acute UTI- completed treatment w/ PO Augmentin 02/08 for ecoli UTI. #B12 deficiency - LOW at 106 IM replacement x 3 provided while inpatient and continues on PO at this time follow up in primary care #Vitamin D deficiency - Vit D found to be LOW at 20.4 and PO supplementation started #MAC Follows with [facility] [employer] in [place], Dr. Lou. Noted on chest CT. Unchanged and stable. #Benign essential tremor, Parkinsons Continue carbidopa-levodopa, fall precautions, PT/OT as above Prior on propranolol, no significant tremor on exam- defer for now #Seizure disorder No seizure activity reported/observed as cause for her fall [employer] Continue Vimpat, Keppra, topiramate. #Mental health Continue paroxetine Support provided Notes For Next Care Provider B12 and vitamin deficiencies - started replacement Admission HPI Per Admitting Provider Patient is a 79 y/o female with a PMHx of recurrent falls, benign essential tremor, MAC, seizures. She presented via EMS after a ground level fall at home using her walker, patient endorses HS on metal cabinet, denies LOC. Diagnostic imaging revealed acute mild superior endplate compression deformity of L2. She is being admitted for ambulatory dysfunction to have pt/ot evals. Patient seen at bedside with her daughter present. They have ring cameras at home in case of a fall but it was not recorded on the camera. She was walking in the kitchen with her walker, which she typically walks fast when using. She does not remember what caused her to fall but remembers hitting the back of her head on a metal cabinet. She denies LOC. She now has back pain, denies pain elsewhere. She tried to ambulate in the ED but was unsuccessful secondary to pain. She denies any dizziness or lightheadedness since the fall. She does have a history of MAC and follows with a [facility] [employer] in [place], Dr. Dasha tejeda and she denies any changes. She denies any cough, congestion, rhinorrhea, dyspnea, chest pain, abd pain, n/v/d, edema. She is due for her evening medications and wishes to be full code. Discharge Exam Last 24h vitals reviewed GEN: no acute distress, sitting up in chair looks much better HEENT: pupils equal, sclerae anicteric, moist MM RESP: normal WOB, CTAB CV: reg no mrg ABD: soft/nt/nd +BT : no wright SKIN: warm and dry, no generalized rashes NEURO: AOx person, place, and situation. Face symmetric, speech normal, moves 4 ext spontaneously and equally Discharge Plan Discharge Items Patient Disposition: Home - Home Health Services Reason For Visit: FALL,AMBULATORY DYSFUNCTION Discharge Diagnosis: Fall, Lumbar compression/burst fracture Condition on Discharge: Fair Goals: You have been hospitalized for an urgent problem which required surgery. During your stay at [facility], we have made an effort to correct the problem that brought you to the hospital while keeping you as comfortable as possible. Surgery and medications were used to bring your condition under control and your discharge instructions will include directions for any medications you should take after leaving the hospital. Please make sure to follow the advice of your surgeon regarding follow up with the surgeon and with your primary care provider. Activity: As commented below Lifting: No more than 5 pounds Bathing Comment: May shower starting tomorrow Non-emergency contact: Primary Care Provider and Surgeon Call non-emergency contact if: you have any medication questions, your symptoms worsen, your pain is not controlled, your pain is concerning for you and you have a fever Follow-up/Referrals: Cornell Sanchez DO [Surgeon] - Ciro Chong PA-C [Primary Care Provider] - 02/19/25 10:30 am Diet: Heart Healthy Addtl Attending Provider Instructions: Hospitalized following fall. Found to have fracture to LUMBAR spine. Imaging obtained and reviewed by ortho spine surgeon, Dr Sanchez, who initially recommended conservative treatment upon review of imaging HOWEVER given ongoing pain, recommended surgery for KYPHOPLASTY, which was completed on 02/11. You are being continued on pain medications as followed for ongoing pain cont rol: EDIT PENDING PAIN CONTROL FOLLOWING TO SURGERY: tylenol (acetaminophen) 1gm every 8 hours ibuprofen 200-400 mg as needed every 8 hours max 7 days Oxycodone 5mg every 4 hours as needed for breakthrough pain As discussed, pain medications can make you constipated. -Please continue bowel regimen with miralax/colace/senna and/or suppository if needed if this occurs. For constipation: Miralax 1 capful daily or twice a day as needed Senna tabs 1-2 tabs daily as needed -these are both safe to take snf Dulcolax 5-10 mg tab daily as needed if the above meds are ineffective Dulcolax suppository per rectum daily as needed -these are for more severe constipation and are for short term use These medications are all available over the counter at the drugstore Please continue Pepcid for prevention of any GI upset while on ibuprofen/NSAIDs. You were also found to have a LOW B12 level and given shots of replacement and should continue oral supplementation once daily. Low levels can contribute to memory issues, balance issues, neuropathy as well as anemia. We also checked a vitamin D level because of the fracture and was low/started replacement which has been continued and should be followed up with primary care. Also found to have possible urinary tract infection which could have contributed to the fall, you completed a course of antibiotics while in the hospital. Please follow up with primary care and Dr Sanchez after discharge to monitor your progress. Home health PT and OT Please return to the ER with any increased pain, worsening difficulty with ambulation, fever/chills, or for any other symptoms concerning for you. It has been a pleasure being a part of the medical team providing for you while you have been in the hospital. Take care! Gilda Lal PA-c and Aisa Mejía MD Pending Studies at Discharge: No Stand-Alone Forms: My [facility], Pain - Opioid Pain Management, Smok ing Cessation Medications and DC Order Prescriptions: New cyanocobalamin (vitamin B-12) 500 mcg Tablet 1,000 mcg PO QAM Qty: 30 0RF lidocaine 5 % Adhesive Patch,Medicated 1 patch transdermal PM Qty: 15 0RF cholecalciferol (vitamin D3) 25 mcg (1,000 unit) Capsule 25 mcg PO QAM Qty: 30 0RF acetaminophen [Tylenol Extra Strength] 500 mg Tablet 1,000 mg PO TID Qty: 0 0RF ibuprofen 200 mg Tablet 200 mg PO Q8H PRN (Reason: pain) Qty: 0 0RF oxycodone 5 mg Tablet 5 mg PO Q4H PRN (Reason: pain) Qty: 20 0RF famotidine 20 mg Tablet 20 mg PO BID Qty: 0 0RF Rx Instructions: buy over the counter. take until you are no longer taking ibuprofen calcitonin (salmon) 200 unit/actuation [place],Non-Aerosol 1 spray NA DAILY Qty: 3.7 0RF Continued levetiracetam 500 mg Tablet 1,000 mg PO BID Qty: 0 valacyclovir 500 mg Tablet 500 mg PO DAILY Qty: 0 lacosamide [Vimpat] 200 mg Tablet 200 mg PO BID Qty: 0 donepezil 5 mg tablet 5 mg PO QAM carbidopa-levodopa 25-100 mg tablet extended release 1 tab PO QPM Rx Instructions: TAKE EVERY DAY AT 7 PM carbidopa-levodopa [Sinemet] 25-100 mg tablet 1.5 tab PO TID Rx Instructions: 7,11,3pm tramadol 50 mg tablet 50 mg PO Q8H PRN (Reason: pain) Qty: 10 0RF Rx Instructions: use if tylenol does not work hydroxyzine pamoate 25 mg capsule 25 mg PO BID PRN (Reason: DIRECTED) topiramate 25 mg tablet 50 mg PO HS paroxetine HCl 40 mg tablet 40 mg PO QAM Discontinued acetaminophen 500 mg Tablet 1,000 mg PO Q6H PRN (Reason: Pain) Discharge Orders: Discharge Order (Routine); Ordered 02/12/25 Ordered By: Asia Tiwari/Other Patient Handouts: Kyphoplasty, Kyphoplasty Dc Admission Data Admit Date/Time: 02/02/25 13:22 Attending Provider: Asia Mejía Admit Provider: Arsenio Dent Primary Care Provider: Ciro Chong [facility] [place]; Arsenio Dent; Cornell Sanchez Other Interventions: Discharge Summary Assessment (RN) Last Done: 02/12/25 11:07 Hospital Stay Data Consultations 01/31/25 21:00 ED Decision to Admit Stat 02/05/25 14:57 Consult Orthopedic Surgery Routine Procedures Performed Operation Date: 02/11/25 08:55 Actual Procedures p L2 Kyphoplasty - Cornell Sanchez DO Diagnostic Imagining Performed 01/31/25 19:01 CT abd pelvis IV con only Stat CT cervical spine wo con Stat CT chest diagnostic w con Stat CT head/brain wo con Stat 02/05/25 09:41 MRI Lumbar Spine [MR lumbar spine wo con] Routine 02/11/25 [place] kyphoplasty any level Routine Pending Results Patient Have Any Pending Studies at Discharge: No Discharge Instructions Given to Patient (Per Discharging Provider) Hospitalized following fall. Found to have fracture to LUMBAR spine. Imaging obtained and reviewed by ortho spine surgeon, Dr Sanchez, who initially r ecommended conservative treatment upon review of imaging HOWEVER given ongoing pain, recommended surgery for KYPHOPLASTY, which was completed on 02/11. You are being continued on pain medications as followed for ongoing pain control: EDIT PENDING PAIN CONTROL FOLLOWING TO SURGERY: tylenol (acetaminophen) 1gm every 8 hours ibuprofen 200-400 mg as needed every 8 hours max 7 days Oxycodone 5mg every 4 hours as needed for breakthrough pain As discussed, pain medications can make you constipated. -Please continue bowel regimen with miralax/colace/senna and/or suppository if needed if this occurs. For constipation: Miralax 1 capful daily or twice a day as needed Senna tabs 1-2 tabs daily as needed -these are both safe to take snf Dulcolax 5-10 mg tab daily as needed if the above meds are ineffective Dulcolax suppository per rectum daily as needed -these are for more severe constipation and are for short term use These medications are all available over the counter at the drugstore Please continue Pepcid for prevention of any GI upset while on ibuprofen/NSAIDs. You were also found to have a LOW B12 level and given shots of replacement and should continue oral supplementation once daily. Low levels can contribute to memory issues, balance issues, neuropathy as well as anemia. We also checked a vitamin D level because of the fracture and was low/started replacement which has been continued and should be followed up with primary care. Also found to have possible urinary tract infection which could have contributed to the fall, you completed a course of antibiotics while in the hospital. Please follow up with primary care and Dr Sanchez after discharge to monitor your progress. Home health PT and OT Please return to the ER with any increased pain, worsening difficulty with ambulation, fever/chills, or for any other symptoms concerning for you. It has been a pleasure being a part of the medical team providing for you while you have been in the hospital. Take care! Gilda Lal PA-c and Asia Mejía MD Total Time Total Time Spent Total Time Spent (In Minutes): I personally spent: 35 minutes today on clinical care activities including: reviewing chart notes and vital signs reviewing underwriting consultant recommendations discussion with lead care manager examining and counseling the patient writing orders writing prescriptions, discharge instructions documentation Coding Level of Care Code 38265 INP/OBS DISCH >30 MIN Diagnoses Fall from standing W19.XXXA Closed compression fracture of L2 vertebra S32.020A Ambulatory dysfunction R26.2 Vitamin B12 deficiency E53.8 Vitamin D deficiency E55.9"
== END 2025-02-12 12:43 | disposition home health service (06) | DRG 478 ==
LOC: ED 18:42 → 3W 18:42 → SUATTDRO 21:41 → 3W 23:04 → SUATTDRO 02-02 13:22 → 3W 02-03 23:17